=== PATIENT | female | born 1945 | race Caucasian/White ===

== ENCOUNTER 2017-09-22 16:52 | Emergency (ER) | payer MEDICARE, MEDICAID, SELFPAY ==
[2017-09-22 16:59] VITALS: BP 162/75; PULSE 79; RESP 18; TEMP 36.8; O2SAT 95; BMI 18.1
--- NOTE | 2017-09-22 17:21 | HMH.EDGENADL ---
ED Disposition Clinical Impression: URTI (acute upper respiratory infection) Disposition: Home, Self-Care Condition on Discharge: Fair Additional Instructions: 1- basic hygiene. 2- drink plenty of fluids. 3- follow up with pcp in am 4- return if needed Prescriptions: Azithromycin [Zithromax 250mg tab] 250 mg PO DIRECTED #6 tab - Critical Care Critical Care Time: No Attestation: On , the high probability of a clinically significant, sudden or life threatening deterioration of the following system(s) required my full and direct attention, intervention and personal management. The time I documented below is in addition to time spent performing reported procedures but includes the following listed in this critical care notation. Medical Decision Making - Kevon Inquiry Pt receiving controlled substance: No Kevon was queried for this patient: No Vital Signs: 09/22/17 16:59 Temperature 98.3 F Temperature Source Oral Pulse Rate [Right Brachial] 79 Respiratory Rate 18 Blood Pressure [Right Arm] 162/75 Blood Pressure Mean [Right Arm] 104 Blood Pressure Source [Right Arm] Automatic Cuff Blood Pressure Position [Right Arm] Sitting 02 Sat by Pulse Oximetry 95 Oxygen Delivery Method Room Air - Lab Data Lab Results 09/22/17 07:14: Group A Strep Rapid Negative 09/22/17 17:00: Influenza Type A Ag Negative, Influenza Type B Ag Negative Orders (Tests/Meds): ORDERS Category Date Time Status Strep Screen Confirmation Stat Micro 09/22/17 07:14 Received Medical Decision Narrative: The patient requested a steroid injection I declined and explained her the reason behind. I told her I will give her an antibiotic prescription need to follow-up with a primary care physician. Seem to understand my rationale. General Adult HPI - General Chief complaint: PAIN Stated complaint: body aches, cough Time Seen by Provider: 09/22/17 17:00 Mode of Arrival: Ambulatory Limitations: No Limitations Description of Symptoms (Recalled from ER Triage Doc. by RN): pt presents with body aches - History of Present Illness HPI narrative: 72 years old white female with history of hypothyroidism. She presents to the ED with her and son because of similar symptoms of fever body and aches. She denies cough chest pain nausea vomiting. Onset (ago): day(s) (yesterday) Radiation: non-radiation Severity: mild Relieving factors: none Exacerbating factors: none Associated symptoms: denies other symptoms Treatments prior to arrival: none - Related Data Previous Rx's Medication Instructions Recorded Azithromycin [Zithromax 250mg 250 mg PO DIRECTED #6 tab 09/22/17 tab] Allergies Allergy/AdvReac Type Severity Reaction Status Date / Time No Known Allergies Allergy Unverified 06/18/17 15:31 [facility] History I have reviewed the patient's past medical history: Yes - Social History Educational Level: Completed High School Smoking Status: Unknown if ever smoked Alcohol Intake: never - Psychiatric History Expresses thoughts of harming self/others: None Suicide Plan Description: No Plan ROS Obtained: Yes All systems reviewed & no additional complaints Physical Exam - General General appearance: alert, in no apparent distress - Head Head exam: atraumatic, normocephalic, normal inspection - Eye Eye exam: Present: normal appearance, PERRL, EOMI - ENT ENT exam: Present: normal exam, normal oropharynx, mucous membranes moist, TM's normal bilaterally, normal external ear exam - Neck Neck exam: Present: normal inspection, full ROM, trachea midline. Absent: meningismus, lymphadenopathy - Chest Chest inspection: Present: normal inspection, symmetric chest wall rise. Absent: tenderness - Respiratory Respiratory exam: Present: normal lung sounds bilaterally. Absent: respiratory distress - Cardiovascular Cardiovascular exam: Present: regular rate, normal rhythm. A
[2017-09-22 17:44] LABS: Strep Scrn Group A (Rapid) Negative (Negative)
[2017-09-22 18:20] VITALS: BP 129/72; PULSE 69; RESP 18; TEMP 37.1; O2SAT 99
== END 2017-09-22 18:21 | disposition home or self-care (01) ==
PROVIDERS: Emergency Provider Emergency Medicine; Family Provider Family Medicine; PCP Nurse Practitioner
DX: J06.9 Acute upper respiratory infection, unspecified (principal)
CPT/HCPCS: 87275; 87276; 87430; 99282

== ENCOUNTER → 2019-06-19 15:45 | Outpatient (CLI) | payer MEDICARE, MEDICAID, SELFPAY ==
--- NOTE | 2019-06-19 15:56 | XR_ITS ---
PROCEDURE: XR ABDOMEN MIN 2V CLINICAL INDICATION: CONSTIPATION COMPARISON: LS5 LUMBAR SPINE 5 VIEWS from 05/18/2017 FINDINGS: There is a moderate amount of retained colonic feces throughout the colon. Mild lumbar scoliosis convex left. There are multiple pelvic phleboliths. Small sclerotic focus overlies the ilium on the right and there sclerosis in the left supra-acetabular region IMPRESSION: Constipation Dictated by: Ismael Sutton MD 06/19/2019 17:38 Electronically signed by Ismael Sutton MD in [place] 06/19/2019 17:38
== END ==
PROVIDERS: PCP Nurse Practitioner Family; Visit Provider Nurse Practitioner Family
DX: K59.00 Constipation, unspecified (principal)
CPT/HCPCS: 74019

== ENCOUNTER → 2020-04-16 11:02 | Outpatient (CLI) | payer MEDICARE, MEDICAID, SELFPAY ==
[2020-04-16 12:43] LABS: Coronavirus 19 IgG Antibody Negative (Negative); Coronavirus 19 IgM Antibody Negative (Negative)
== END ==
PROVIDERS: Visit Provider Internal Medicine Gastroenterology
DX: Z01.818 Encounter for other preprocedural examination (principal); Z13.810 Encounter for screening for upper gastrointestinal disorder
CPT/HCPCS: 36415; 86328

== ENCOUNTER 2020-04-18 10:22 | Day surgery (SDC) | payer MEDICARE, MEDICAID, SELFPAY ==
[2020-04-13 13:34] VITALS: BMI 25.4
[2020-04-18] VITALS (7 sets, daily range): BP systolic 83–139; BP diastolic 51–75; PULSE 73–87; RESP 16; TEMP 36.2–36.4; O2SAT 94–100
--- NOTE | 2020-04-18 11:46 | P.PN_ITS ---
[facility] Anesthesia Checklist - Patient Identification Patient Identification: Arm Band, Verbal (Name & ) - Structural Data Admitted From: Home Planned Operative Procedure/s: EGD Consent for Planned Operative Procedure(s) Verified: Yes Verified Documents: Surgical Consent, History and Physical - NPO Status Verified Time NPO: 00:00 - Chart Verification Results Verified: None - Additional verifications Anesthesia Reactions: No - Airway Assessment C-Spine Mobility Assessed: Yes TMJ Mobility Assessed: Yes Dentition: Edentulous - Neurological Assessment Level of Consciousness: Awake, Alert, Appropriate, Follows Commands Hx Seizures: No Numbness or tingling in extremities: No - Anesthesia Plan Anesthesia Risk discussed: Yes Anesthesia Plan: Verified ASA Class: III Anesthesia Type: MAC [facility] History I have reviewed the patient's past medical history: Yes Medical History: Reports:: Anxiety, Depression, Gastroesophageal Reflux Disea se(GERD), Heart Murmur, Hypertension Denies:: Cancer, Diabetes Mellitus Type 1, Internal Pacemaker, MRSA, Seizures *Have you ever received a pneumonia vaccine?: Yes *Have you received a flu vaccine this season?: Yes Other Medical History: Reports: Hypothyroidism Comment:: urine incontinence Anesthesia experience/problems:: no prior complications Other Surgeries: Yes: Appendectomy, Colon Resection, Tubal Ligation. No: Pacemaker Amputation: No Fractures: No - *Social History Last grade of school completed: GED Smoking Status: Never smoker Alcohol Intake: never Substance Use Type: denies use *Occupational Status:: retired Housing: house Household Members: spouse *Travel in the last 8 weeks: None Family Hx:: Cancer, Coronary Artery Disease, Heart Attack
--- NOTE | 2020-04-18 12:00 | HMH.PROC ---
[facility] Procedure Note Procedure Note:: Upper Endoscopy Procedure Report: Esophagogastroduodenoscopy with cold biopsies and TTS balloon dilation Endoscopost: Domingo Spencer II, MD Referring Physician: BRUNO Mai Date of Procedure: April 18, 2020 Equipment: Olympus GIF 180 standard upper endoscope Sedation: MAC sedation Indications: Mrs. Nolasco is a 74-year-old female with intractable nausea. She has had belching, bloating and early satiety. She also reports some dysphagia with globus sensation. She reports no regurgitation or vomiting. She reports no heartburn. She does have chronic constipation. She reports no weight loss. Her last upper endoscopy was several years ago. Procedure: Prior to the procedure, a history and physical exam was performed, and patient's medications and allergies were reviewed. The risks, benefits and alternatives of the sedation and procedure were discussed with the patient. All questions were answered and informed consent was obtained. The patient was brought to the procedure room. Patient identification and proposed procedure were verified by the physician and the nurse. The patient was placed in a left lateral decubitus position and the scope was passed under direct vision. Throughout the procedure, the patient's blood pressure, pulse, and oxygen saturations were monitored continuously. The upper GI endoscopy was accomplished without difficulty. The patient tolerated the procedure well. Findings: The scope was passed directly into the upper esophagus and advanced to the third portion of the duodenum. The post bulbar duodenum and duodenal bulb were normal with normal mucosa and conniventes. The scope was withdrawn through a normal duodenal bulb and pylorus into the stomach. There was evidence of linear reactive gastropathy of the antrum and body of the stomach. The remainder of the antrum, body and fundus of the stomach were grossly normal. Upon retroflexion there was a small sliding 1-2 cm hiatal hernia. 2 biopsies were taken in the antrum and along the lesser curvature for histology to rule out gastritis and/or H pylori. The scope was then withdrawn into the esophagus. There was a serrated Z-line and biopsies were obtained from the distal esophagus/GE junction. There was no evidence of reflux esophagitis or Hatch's. There was no Schatzki's ring or strictures. There were strong tertiary contractions and evidence of moderate esophageal dysmotility. The entire esophagus was dilated to 60 Citizen [place]/20 mm with a TTS hydrostatic balloon. There was some resistance at the cricopharyngeus. The remainder of the esophageal mucosa was normal. Impression: 1. Cricopharyngeal spasm status post dilation to 20 mm 2. Nonerosive GERD with moderate esophageal dysmotility and very small 1 to 2 cm hiatal hernia 3. Moderate linear reactive gastropathy Plan: I will follow-up the biopsies. I do feel that the patient has functional dyspepsia with dysmotility. I am going to recommend a fiber bowel regimen and promotility therapy (metoclopramide). I will discuss additional treatment options.
== END 2020-04-18 13:20 | disposition home or self-care (01) ==
PROVIDERS: PCP Family Medicine; Visit Provider Internal Medicine Gastroenterology
PROC: 0DJ08ZZ Inspection of Upper Intestinal Tract, Via Natural or Artificial Opening Endoscopic (ICD-10-PCS; CPT 43235; principal; 2020-04-18 11:30)
DX: J39.2 Other diseases of pharynx (principal); K21.9 Gastro-esophageal reflux disease without esophagitis; K44.9 Diaphragmatic hernia without obstruction or gangrene; K22.4 Dyskinesia of esophagus; K31.9 Disease of stomach and duodenum, unspecified; I10 Essential (primary) hypertension; F41.9 Anxiety disorder, unspecified; F32.9 Major depressive disorder, single episode, unspecified; E03.9 Hypothyroidism, unspecified; Z90.49 Acquired absence of other specified parts of digestive tract
CPT/HCPCS: 43239; 43249; 88305; C1726

== ENCOUNTER → 2020-05-02 08:27 | Outpatient (CLI) | payer MEDICARE, MEDICAID, SELFPAY ==
--- NOTE | 2020-05-02 08:33 | CT_ITS ---
PROCEDURE: CT HEAD/BRAIN WO CON CLINICAL INDICATION: DIZZINESS,BLURRED VISION COMPARISON: CT HDWO CT HEAD W/O CONTRAST from 04/09/2017 TECHNIQUE: Axial images obtained. All CT scans at the facility use one or more dose reduction, viz: automated exposure control, ma/kV adjustment per patient size (including targeted exams where dose is matched to indication, i.e. head), or iterative reconstruction technique. FINDINGS: No midline shift, mass effect, intracranial hemorrhage, hydrocephalus, or extra-axial fluid collection is evident. The calvarium has an unremarkable appearance. No mastoid effusion. Minimal mucosal thickening involves the ethmoid sinuses. IMPRESSION: No acute intracranial finding Dictated by: Ismael Sutton MD 05/02/2020 08:48 Ismael Sutton MD in [place] 05/02/2020 08:48
== END ==
PROVIDERS: PCP Family Medicine; Visit Provider Nurse Practitioner Family
DX: R42 Dizziness and giddiness (principal); H53.8 Other visual disturbances
CPT/HCPCS: 70450

== ENCOUNTER → 2020-08-08 11:04 | Outpatient (CLI) | payer MEDICARE, MEDICAID, SELFPAY ==
[2020-08-08 12:08] LABS: Coronavirus 19 IgG Antibody Negative (Negative); Coronavirus 19 IgM Antibody Negative (Negative)
== END ==
PROVIDERS: Visit Provider Ophthalmology
DX: Z01.812 Encounter for preprocedural laboratory examination (principal); Z20.822 Contact with and (suspected) exposure to COVID-19; H25.12 Age-related nuclear cataract, left eye
CPT/HCPCS: 36415; 86328

== ENCOUNTER 2020-08-09 06:47 | Day surgery (SDC) | payer MEDICARE, MEDICAID, SELFPAY ==
[2020-08-04 13:36] VITALS: BMI 23.4
[2020-08-09 07:26] VITALS: BP 137/82; PULSE 87; RESP 16; TEMP 36.6; O2SAT 99
[2020-08-09 08:34] VITALS: BP 143/67; PULSE 71; RESP 18; O2SAT 100
[2020-08-09 08:39] VITALS: BP 140/69; PULSE 74; RESP 18; O2SAT 100
[2020-08-09 08:44] VITALS: BP 135/67; PULSE 71; RESP 16; O2SAT 100
[2020-08-09 08:49] VITALS: BP 129/61; PULSE 70; RESP 16; O2SAT 100
[2020-08-09 08:56] VITALS: BP 126/85; PULSE 67; RESP 16; TEMP 36.4; O2SAT 95
== END 2020-08-09 09:05 | disposition home or self-care (01) ==
PROVIDERS: PCP Family Medicine; Visit Provider Ophthalmology
DX: H26.9 Unspecified cataract (principal); F32.9 Major depressive disorder, single episode, unspecified; E03.9 Hypothyroidism, unspecified; Z79.899 Other long term (current) drug therapy
CPT/HCPCS: 66984; V2632

== ENCOUNTER → 2021-04-11 11:10 | Outpatient (CLI) | payer MEDICARE, MEDICAID, SELFPAY ==
--- NOTE | 2021-04-11 11:21 | XR_ITS ---
PROCEDURE: XR CERVICAL SPINE 5V CLINICAL INDICATION: NECK PAIN COMPARISON: No exams were available for comparison FINDINGS: There is normal alignment. No acute fracture or dislocation is evident. There is degenerative disc disease at C5-C6 and C6-C7. Mild foraminal narrowing is present on the right at C3-C4 C4-C5 and C5-C6 and on the left at C3-C4 with moderate foraminal narrowing on the left at C5-C6 from uncovertebral hypertrophy. Mild facet hypertrophic changes are present from C3-C6. This is slightly greater on the left. No lytic or blastic change. No cervical rib. IMPRESSION: Cervical spondylosis as described above. Dictated by: Ismael Sutton MD 04/11/2021 12:20 Ismael Sutton MD in [place] 04/11/2021 12:20
== END ==
PROVIDERS: PCP Family Medicine; Visit Provider Family Medicine
DX: M54.2 Cervicalgia (principal)
CPT/HCPCS: 72050

== ENCOUNTER 2021-06-03 23:22 | Observation (INO) | payer MEDICARE, MEDICAID, SELFPAY ==
--- NOTE | 2021-06-03 | ECG_ITS ---
APPROVED REPORT Exam: Resting ECG HR:123 bpm ECG Measurements Heart Rate 123 AXES ME 128 P 39 QRSd 80 QRS 50 QT 318 T 53 QTc 455 Conclusion Sinus tachycardia Late r wave progression Abnormal ECG Electronically signed by : Ariel Mendez MD 06/04/2021 09:04:13
[2021-06-03 23:23] VITALS: BP 113/75; PULSE 125; RESP 26; TEMP 39.5; O2SAT 99; BMI 27.3
--- NOTE | 2021-06-03 23:59 | PC.NURSE ---
pt states that she toog 1000 mg of tylenol at 9pm as well as promethazine
[2021-06-04] VITALS (12 sets, daily range): BP systolic 109–132; BP diastolic 45–75; PULSE 68–120; RESP 16–22; TEMP 37.1–38.8; O2SAT 95–100; BMI 27.7
--- NOTE | 2021-06-04 00:01 | XR_ITS ---
PROCEDURE INFORMATION: Exam: XR Chest Exam date and time: 06/04/2021 12:01 AM Age: 75 years old Clinical indication: Fever and other: Nausea, abdomen pain; Additional info: Abd pain, nausea, fever TECHNIQUE: Imaging protocol: XR of the chest. Views: 2 views. COMPARISON: CR CXR CHEST(2 VIEWS-NOT PORTABLE) 04/09/2017 3:15 PM FINDINGS: Lungs: Subtle interstitial haziness could reflect interstitial pneumonia. No consolidation. Pleural spaces: Unremarkable. No pleural effusion. No pneumothorax. Heart/Mediastinum: Unremarkable. No cardiomegaly. Bones/joints: Unremarkable. IMPRESSION: Subtle interstitial haziness could reflect interstitial pneumonia.
[2021-06-04 00:07] LABS: Coronavirus 19, PCR Not Detected (NotDetected); Influenza A, PCR Not Detected (NotDetected); Influenza B, PCR Not Detected (NotDetected); Microscopic, Urine URINE MICROSCOPIC (MICROSCOPIC)
[2021-06-04 00:14] LABS: Basophils # 0.1 K/mm3 (0-0.2); Basophils % 0.4 % (0.1-2.0); Eosinophils # 0.1 K/mm3 (0.0-0.4); Eosinophils % 0.4 % (0.1-12.0); Hematocrit 35.3 % (37.0-47.0); Hemoglobin 13.7 g/dL (12.2-16.2); Lymphocytes # 1.4 K/mm3 (0.7-4.5); Lymphocytes % 10.6 % (10-50); Mean Corpuscular HGB Conc 38.9 g/dL (31.8-35.4); Mean Corpuscular Hemoglobin 36.9 pg (27.0-31.2); Mean Corpuscular Volume 94.9 fl (81-99); Mean Platelet Volume 7.5 fl (7.4-10.4); Monocytes # 0.6 K/mm3 (0.1-1.0); Monocytes % 4.8 % (1.7-9.3); Neutrophils # 11.1 K/mm3 (1.8-7.8); Neutrophils % 83.9 % (37.0-80.0); Platelet Count 263 K/mm3 (142-424); Red Blood Count 3.72 M/mm3 (4.20-5.40); Red Cell Distribution Width 12.5 % (11.5-17.5); White Blood Count 13.3 K/mm3 (4.8-10.8)
[2021-06-04 00:17] LABS: Alanine Aminotransferase 33 U/L (12-78); Albumin Level 4.1 g/dl (3.5-5.0); Albumin/Globulin Ratio 1.4 (1.1-1.8); Alkaline Phosphatase 87 U/L (38-126); Amylase 47 U/L (30-110); Anion Gap 9.7 mEq/L (5-15); Aspartate Amino Transferase 36 U/L (14-36); Bilirubin,Total 0.3 mg/dl (0.2-1.3); Blood Urea Nitrogen 17 mg/dl (7-17); Carbon Dioxide 27 mmol/L (22.0-30.0); Chloride 105 mmol/L (98-107); Creatinine Clearance Estimated 49 mL/min (50-200); Estimated Glomerular Filt Rate 70 ml/min (>60); GFR (African American) 85 ML/MIN (>60); Glucose 116 mg/dl (74-100); Lactic Acid 1.1 mmol/L (0.7-2.1); Lipase 33 U/L (23-300); Potassium 3.7 mmoL/L (3.5-5.1); Sodium 138 mmol/L (136-145); Total Protein,Serum 7.1 g/dl (6.3-8.2)
--- NOTE | 2021-06-04 00:19 | HMH.EDNVD ---
ED Disposition Clinical Impression: Febrile illness, acute, SIRS (systemic inflammatory response syndrome) CAP (community acquired pneumonia) Qualifiers: Laterality: unspecified laterality Qualified Code(s): J18.9 - Pneumonia, unspecified organism Disposition: Admitted as Observation Condition on Discharge: Good - Critical Care Critical Care Time: No Attestation: On 06/03/21, the high probability of a clinically significant, sudden or life threatening deterioration of the following system(s) required my full and direct attention, intervention and personal management. The time I documented below is in addition to time spent performing reported procedures but includes the following listed in this critical care notation. Medical Decision Making - Medical Records Medical records reviewed: Yes: I reviewed the patient's medical records. - Kevon Inquiry Pt receiving controlled substance: No Vital Signs: 06/03/21 23:23 06/04/21 00:00 06/04/21 00:30 Temperature 103.1 F H Temperature Source Oral Pulse Rate 120 H 116 H Pulse Rate [Left] 125 H Respiratory Rate 26 H 22 20 Blood Pressure 128/72 132/65 Blood Pressure [Right Arm] 113/75 Blood Pressure Mean [Right Arm] 87 02 Sat by Pulse Oximetry 99 100 98 Oxygen Delivery Method Room Air Room Air Room Air 06/04/21 01:13 Temperature 101.8 F H Temperature Source Oral Pulse Rate Pulse Rate [Left] Respiratory Rate Blood Pressure Blood Pressure [Right Arm] Blood Pressure Mean [Right Arm] 02 Sat by Pulse Oximetry Oxygen Delivery Method - Lab Data Lab results reviewed: Yes: I reviewed the patient's lab results. Lab Results 06/04/21 00:01: Urine Color Yellow, Urine Appearance Clear, Urine pH 6.0, Ur Specific Amelia 1.010, Urine Protein Negative, Urine Glucose (UA) Negative, Urine Ketones Negative, Urine Blood Trace-l, Urine Nitrate Negative, Urine Bilirubin Negative, Urine Urobilinogen 0.2, Ur Leukocyte Esterase Negative, Urine RBC Occasional, Urine WBC Occasional, Amorphous Sediment Trace 06/04/21 00:01: WBC 13.3 H, RBC 3.72 L, Hgb 13.7, Hct 35.3 L, MCV 94.9, MCH 36.9 H, MCHC 38.9 H, RDW 12.5, Plt Count 263, MPV 7.5, Neut % (Auto) 83.9 H, Lymph % (Auto) 10.6, [place] % (Auto) 4.8, Eos % (Auto) 0.4, Baso % (Auto) 0.4, Neut # (Auto) 11.1 H, Lymph # (Auto) 1.4, [place] # (Auto) 0.6, Eos # (Auto) 0.1, Baso # (Auto) 0.1, ESR 32 H 06/04/21 00:01: Sodium 138, Potassium 3.7, Chloride 105, Carbon Dioxide 27, Anion Gap 9.7, BUN 17, Creatinine 0.80, Estimated Creat Clear 49, Estimated GFR 70, Est GFR ( Amer) 85, Glucose 116 H, Calcium 10.0, Total Bilirubin 0.3, AST 36, ALT 33, Alkaline Phosphatase 87, Troponin I < 0.01, Total Protein 7.1, Albumin 4.1, Globulin 3.0, Albumin/Globulin Ratio 1.4, Amylase 47, Lipase 33 06/04/21 00:01: Lactate 1.1 06/04/21 00:01: SARS-CoV-2 (PCR) Not detected, Influenza A Untype (PCR) Not detected, Influenza Type B (PCR) Not detected Result diagrams: 06/04/21 00:01 06/04/21 00:01 Orders (Tests/Meds): ED MEDICATIONS Generic Name Dose Route Start Last Admin Trade Name Freq PRN Reason Stop Dose Admin Sodium Chloride 1,000 mls @ 999 mls/hr 06/04/21 00:15 06/04/21 00:08 Sod Chlor 0.9% 1000ml Bag IV 06/04/21 01:15 999 mls/hr .Q1H1M ANNIE Administration Azithromycin 500 mg/ Sodium 250 mls @ 250 mls/hr 06/04/21 02:15 Chloride IV 06/18/21 02:14 Q24H ANNIE Ceftriaxone Sodium 1 gm/ 50 mls @ 100 mls/hr 06/04/21 02:15 Sodium Chloride IV 06/18/21 02:14 Q24H ANNIE Discontinued Medications Generic Name Dose Route Start Last Admin Trade Name Freq PRN Reason Stop Dose Admin Acetaminophen 650 mg 06/04/21 01:15 06/04/21 01:18 Acetaminophen 325mg Tab PO 06/04/21 01:16 650 mg ONCE ONE Administration Ibuprofen 400 mg 06/04/21 00:08 Ibuprofen 400 Mg Tablet PO 06/04/21 00:09 ONCE ONE Ondansetron HCl 4 mg 06/04/21 00:04 06/04/21 00:08 Ondansetron 4mg/2ml Vial IV 06/04/21 00:05 4
[2021-06-04 00:29] LABS: Appearance,Urine CLEAR (Clear); Bilirubin,Urine Negative (Negative); Blood, Urine TRACE-L (Negative); Color,Urine YELLOW (Yellow); Glucose,Urine (UA) Negative (Negative); Ketones,Urine Negative (Negative); Leukocyte Esterase,Urine Negative (Negative); Nitrate,Urine Negative (Negative); Protein,Urine Negative (Negative); Urobilinogen,Urine 0.2 EU/dl (0.2)
[2021-06-04 00:32] LABS: Troponin I < 0.01 ng/ml (0.00-0.034)
[2021-06-04 00:36] LABS: Erythrocyte Sedimentation Rate 32 mm/hr (0-30)
[2021-06-04 00:40] LABS: Amorphous Sediment,Urine Trace /lpf; RBC,Urine Occasional #/hpf (0-3); WBC,Urine Occasional #/hpf (0-3)
[2021-06-04 02:13] LABS: Adenovirus,PCR Not Detected (NotDetected); Bordetella Pertussis Not Detected (NotDetected); Chlamydophila Pneumoniae, PCR Not Detected (NotDetected); Coronavirus 19, PCR Not Detected (NotDetected); Coronavirus 229E Not Detected (NotDetected); Coronavirus NL63 Not Detected (NotDetected); Coronavirus OC43 Not Detected (NotDetected); Coronovirus HKU1,PCR Not Detected (NotDetected); Human Metapneumovirus Not Detected (NotDetected); Influenza A, PCR Not Detected (NotDetected); Influenza AH1, 2009 Not Detected (NotDetected); Influenza AH1, PCR Not Detected (NotDetected); Influenza AH3,PCR Not Detected (NotDetected); Influenza B, PCR Not Detected (NotDetected); Mycoplasma Pneumoniae, PCR Not Detected (NotDetected); Parainfluenza 1, PCR Not Detected (NotDetected); Parainfluenza 2, PCR Not Detected (NotDetected); Parainfluenza 3, PCR Not Detected (NotDetected); Parainfluenza 4, PCR Not Detected (NotDetected); Respiratory Syncytial Virus Not Detected (NotDetected); Rhinovirus/Enterovirus Not Detected (NotDetected)
[2021-06-04 02:39] LABS: T4 (Thyroxine) 10.6 ug/dl (5.53-11.0)
[2021-06-04 02:52] LABS: Thyroid Stimulating Hormone 1.25 uIU/mL (0.465-4.68)
--- NOTE | 2021-06-04 02:57 | PC.NURSE ---
report called to Lisa PUGH
--- NOTE | 2021-06-04 03:08 | PC.NURSE ---
PT ARRIVED TO FLOOR VIA W/C FROM ED W/STAFF @ [id number]
--- NOTE | 2021-06-04 03:46 | PC.NURSE ---
A&OX4. TOLERATING RA WELL. PT DOES NOT HAVE COUGH OR SPUTUM PRODUCTION. PT STATES THAT SHE FEELS YUCKY . PT UP INDEPENDENTLY IN ROOM. HAS RESTED WELL SINCE ARRIVAL TO FLOOR. ON ARRIVAL, ORAL TEMP 101. ACTIVE COOLING MEASURES IN PLACE, TYLENOL ADMINISTERED. WILL RE-CHECK TEMP. NO OTHER C/O THUS FAR, WILL CONTINUE TO MONITOR.
[2021-06-04 04:03] LABS: Troponin I < 0.01 ng/ml (0.00-0.034)
--- NOTE | 2021-06-04 05:14 | PC.NURSE ---
RECHECKED PT TEMP, NOW 99.7 ORALLY. WILL CONTINUE TO MONITOR.
[2021-06-04 07:55] LABS: Chloride 110 mmol/L (98-107); Potassium 3.7 mmoL/L (3.5-5.1); Sodium 141 mmol/L (136-145)
[2021-06-04 07:57] LABS: Blood Urea Nitrogen 13 mg/dl (7-17); Creatinine Clearance Estimated 50 mL/min (50-200); Estimated Glomerular Filt Rate 82 ml/min (>60); GFR (African American) 99 ML/MIN (>60)
[2021-06-04 07:58] LABS: Anion Gap 8.7 mEq/L (5-15); Calcium 8.9 mg/dl (8.4-10.2); Carbon Dioxide 26 mmol/L (22.0-30.0); Glucose 87 mg/dl (74-100); Magnesium 1.6 mg/dl (1.6-2.3)
--- NOTE | 2021-06-04 07:58 | HMH.HP ---
*Admission Date: 06/04/21 *Chief complaint: Weakness and nausea *History of present illness: 75-year-old female presented to the emergency department yesterday evening after awakening that morning with malaise and nausea. Patient had chills and low-grade fever at home as well. She denies cough, shortness of breath, dysuria, urinary frequency, urinary urgency, swollen joints, joint pain, rashes, open wounds, vomiting, diarrhea. As her day progressed and she felt more ill she presented to the emergency department. In the ER patient was febrile. Work-up revealed a leukocytosis and chest x-ray hinting at possible interstitial pneumonia. Patient was started on Rocephin and azithromycin to treat suspected community-acquired pneumonia and admitted for further monitoring. Patient has no history of lung disease. She is unaware of any sick contacts although has been visiting her frequently in a alf facility where he is rehabilitating. This morning she reports slight improvement. Temperature seems to be returning to normal [facility] History I have reviewed the patient's past medical history: Yes Medical History: Reports:: Anxiety, Depression, Gastroesophageal Reflux Disease(GERD), Heart Murmur, Hypertension Denies:: Cancer, Diabetes Mellitus Type 1, Diabetes Mellitus Type 2, Internal Pacemaker, MRSA, Seizures *Have you ever received a pneumonia vaccine?: Yes *Have you received a flu vaccine this season?: Yes Other Medical History: Reports: Hypothyroidism Other Surgeries: Yes: Appendectomy, Colon Resection, Tubal Ligation. No: Pacemaker Amputation: No Fractures: No - *Social History Smoking Status: Never smoker Alcohol Intake: never Substance Use Type: denies use *Occupational Status:: retired Housing: house Household Members: spouse *Travel in the last 8 weeks: None - Psychiatric History Pschychiatric History:: Reports:: Anxiety, Depression Family Hx:: No significant family history Review of Systems - Constitutional Reports body ache(s), Reports chills, Reports fever(s), Reports headache(s), Reports lack of energy, Reports malaise, Reports weakness - Eyes Denies blurry vision, Denies change in vision - ENT Denies change in voice, Denies difficulty swallowing, Denies ear pain - *Cardiovascular Denies chest pain, Denies chest pain at rest, Denies chest pain with activity, Denies leg pain with activity, Denies excessive sweating, Denies shortness of breath, Denies shortness of breath with activity, Denies irregular heart rhythm, Denies leg sores - *Respiratory Denies chest congestion, Denies cough, Denies shortness of breath, Denies shortness of breath with activity - *Gastrointestinal Denies abdominal pain, Denies belching, Denies bloating, Denies change in bowel habits, Denies loose stools, Denies difficulty swallowing, Denies vomiting - *Genitourinary Denies difficulty urinating, Denies painful urination, Denies side pain, Denies genital itching - *Musculoskeletal Denies joint pain - Integumentary/Breasts Denies bleeding lesions, Denies rash - *Neurologic Reports weakness, Denies abnormal walking, Denies abnormal hearing, Denies burning sensations, Denies confusion, Denies seizure-like activity, Denies unsteadiness, Denies localized weakness, Denies seizure-like activity - Psychiatric Denies change in appetite - Endocrine Denies cold intolerance, Denies excessive sweating, Denies flushing, Denies rapid, pounding, or irregular heartbeat - Hematologic/Lymphatic Denies easy bruising Meds Home Medications Medication Instructions Recorded Confirmed Type Cholecalciferol (Vitamin D3) 50,000 unit PO WEEKLY 04/13/20 06/04/21 History [Vitamin D3] Levothyroxine Sodium 100 mcg PO DAILY 04/13/20 06/04/21 History [Levothyroxine 100mcg (0.1MG) Tab] Oxybutynin Chloride [Ditropan Xl] 5 mg PO BID 04/13/20 06/04/21 History Promethazine HCl [Phenergan 25mg 25 mg PO NEEDED PRN 04/13/20 06/04/21 History tab
[2021-06-04 08:03] LABS: Basophils % 0.4 % (0.1-2.0); Eosinophils # 0.1 K/mm3 (0.0-0.4); Eosinophils % 1.4 % (0.1-12.0); Hematocrit 41.4 % (37.0-47.0); Hemoglobin 13.8 g/dL (12.2-16.2); Mean Corpuscular HGB Conc 33.4 g/dL (31.8-35.4); Mean Corpuscular Hemoglobin 32.4 pg (27.0-31.2); Mean Corpuscular Volume 97.1 fl (81-99); Mean Platelet Volume 9.5 fl (7.4-10.4); Monocytes # 0.5 K/mm3 (0.1-1.0); Monocytes % 5.7 % (1.7-9.3); Neutrophils # 6.5 K/mm3 (1.8-7.8); Neutrophils % 70.5 % (37.0-80.0); Platelet Count 219 K/mm3 (142-424); Red Blood Count 4.27 M/mm3 (4.20-5.40); Red Cell Distribution Width 12.7 % (11.5-17.5); White Blood Count 9.2 K/mm3 (4.8-10.8)
[2021-06-04 08:38] LABS: Procalcitonin 0.501 ng/mL (0.0-2.0)
--- NOTE | 2021-06-04 12:42 | P.CONPHA_ITS ---
[facility] Pharmacy VTE Monitoring - Patient Demographics Admission date: 06/04/21 Report Date: 06/04/21 Time: 12:43 Allergies/Adverse Reactions: Patient Allergies No Known Allergies Allergy (Verified 04/13/20 13:21) Height: 1.52 m Weight: 64.093 kg Patient Problems: Current Active Problems Febrile illness, acute (Acute) SIRS (systemic inflammatory response syndrome) (Acute) - VTE Risk Labs: VTE Related Lab Results Hgb 13.8 g/dL (12.2-16.2) 06/04/21 07:30 Hct 41.4 % (37.0-47.0) 06/04/21 07:30 Plt Count 219 K/mm3 (142-424) 06/04/21 07:30 BUN 13 mg/dl (7-17) 06/04/21 07:30 Creatinine 0.70 mg/dl (0.52-1.04) 06/04/21 07:30 Estimated Creat Clear 50 mL/min (50-200) 06/04/21 07:30 Was VTE Risk Assessment Performed: No Clinical Trial Participant: No - Prophylaxis VTE Prophylaxis Ordered?: Yes Types of VTE Prophylaxis: TEDS Knee High Location of Applied Device: Refused
--- NOTE | 2021-06-04 12:43 | HMH.PHAINT ---
MEDICATION RECONCILIATION COMPLETE USING EXTERNAL PHARMACY FILL HISTORY, ZORAN REPORT, AND CALL TO [facility].
[2021-06-05 04:00] VITALS: BP 120/45; PULSE 69; RESP 18; TEMP 36.8; O2SAT 95
[2021-06-05 04:53] VITALS: BMI 28.8
--- NOTE | 2021-06-05 07:12 | P.PN_ITS ---
Internal Medicine - PN: Subj *Date: 06/05/21 *Time: 07:12 Interval history: Patient has no complaints. No acute events over the last 24 hours. She has remained afebrile. She denies any development of cough. Nausea has improved. Exam Vital signs and Labs for Last 24 Hours: Temp Pulse Resp BP Pulse Ox 98.2 F 69 18 120/45 L 95 06/05/21 04:00 06/05/21 04:00 06/05/21 04:00 06/05/21 04:00 06/05/21 04:00 Laboratory Results - last 24 hr 06/04/21 07:30: Sodium 141, Potassium 3.7, Chloride 110 H, Carbon Dioxide 26, Anion Gap 8.7, BUN 13, Creatinine 0.70, Estimated Creat Clear 50, Estimated GFR 82, Est GFR ( Amer) 99, Glucose 87 D, Calcium 8.9, Magnesium 1.6 06/04/21 07:30: WBC 9.2 D, RBC 4.27, Hgb 13.8, Hct 41.4, MCV 97.1, MCH 32.4 H, MCHC 33.4, RDW 12.7, Plt Count 219, MPV 9.5, Neut % (Auto) 70.5, Lymph % (Auto) 22.0, [place] % (Auto) 5.7, Eos % (Auto) 1.4, Baso % (Auto) 0.4, Neut # (Auto) 6.5, Lymph # (Auto) 2.0, [place] # (Auto) 0.5, Eos # (Auto) 0.1, Baso # (Auto) 0.0 06/04/21 07:30: Procalcitonin 0.501 I & O for Last 24 hours: Intake & Output 06/02/21 06/03/21 06/04/21 06/05/21 11:59 11:59 11:59 11:59 Intake Total 240 / 240 600 / 600 Balance 240 / 240 600 / 600 Weight 141 lb 4.8 oz 146 lb 12.8 oz - Constitutional no acute distress - *Routine Respiratory Exam Present: CTA bilaterally - *Routine Cardiovascular Exam Present: RRR - *Routine Abdominal Exam Present: soft, normoactive bowel sounds. Absent: tenderness - *Routine Extremities Exam Absent: cyanosis, clubbing, edema Assessment and Plan (1) CAP (community acquired pneumonia) Status: Suspected Qualifiers: Laterality: unspecified laterality Qualified Code(s): J18.9 - Pneumonia, unspecified organism Category: Medical Code(s): J18.9 - Pneumonia, unspecified organism (2) Febrile illness, acute Status: Acute Category: Medical Code(s): R50.9 - Fever, unspecified - Assessment and plan all Dx Assessment and Plan for all problems:: Patient will continue azithromycin and Rocephin. Plan will be for additional dose of Rocephin this afternoon and then patient may be discharged home as she is oxygenating well and has been afebrile now for 24 hours. Patient will follow up tomorrow in the office due to high suspicion that patient blood cultures may turn positive
--- NOTE | 2021-06-05 07:14 | HMH.DCSUM ---
General - General Admission date:: 06/04/21 Discharge date: 06/05/21 HPI HPI: 75-year-old female presented to the emergency department yesterday evening after awakening that morning with malaise and nausea. Patient had chills and low-grade fever at home as well. She denies cough, shortness of breath, dysuria, urinary frequency, urinary urgency, swollen joints, joint pain, rashes, open wounds, vomiting, diarrhea. As her day progressed and she felt more ill she presented to the emergency department. In the ER patient was febrile. Work-up revealed a leukocytosis and chest x-ray hinting at possible interstitial pneumonia. Patient was started on Rocephin and azithromycin to treat suspected community-acquired pneumonia and admitted for further monitoring. Patient has no history of lung disease. She is unaware of any sick contacts although has been visiting her frequently in a care home facility where he is rehabilitating. This morning she reports slight improvement. Temperature seems to be returning to normal Hospital Course Hospital Course: Patient was admitted with febrile illness and suspicion of fevers due to chest x-ray suggestive of a small interstitial infiltrate. Patient was never hypoxic. T-max was 103 in the emergency department which trended down to the point the patient was afebrile on the morning of June 04. She remained afebrile for the remainder of her hospitalization. Patient was admitted under diagnosis of pneumonia. Blood cultures were collected. Sputum cultures were never obtained as patient did not have a cough. She was relatively asymptomatic in regards to respiratory illness with only specific complaint being nausea. Patient's white count was elevated on admission and had returned to normal by the morning of June 04. Patient was observed for additional 24 hours and remained well. Due to high suspicion of bacteremia patient was given additional IV Rocephin prior to discharge. Patient will follow up in my office tomorrow June 06 in the afternoon to review available tests and if necessary patient will will resume IV therapy as an outpatient. Objective Vital signs: Temp Pulse Resp BP Pulse Ox 98.2 F 69 18 120/45 L 95 06/05/21 04:00 06/05/21 04:00 06/05/21 04:00 06/05/21 04:00 06/05/21 04:00 no acute distress - *Routine Respiratory Exam Present: CTA bilaterally - *Routine Cardiovascular Exam Present: RRR - *Routine Extremities Exam Absent: cyanosis, clubbing, edema Results Labs on day of discharge: Labs from last 24 hours 06/04/21 06/04/21 06/04/21 07:30 07:30 07:30 WBC 9.2 D RBC 4.27 Hgb 13.8 Hct 41.4 MCV 97.1 MCH 32.4 H MCHC 33.4 RDW 12.7 Plt Count 219 MPV 9.5 Neut % (Auto) 70.5 Lymph % (Auto) 22.0 [place] % (Auto) 5.7 Eos % (Auto) 1.4 Baso % (Auto) 0.4 Neut # (Auto) 6.5 Lymph # (Auto) 2.0 [place] # (Auto) 0.5 Eos # (Auto) 0.1 Baso # (Auto) 0.0 Sodium 141 Potassium 3.7 Chloride 110 H Carbon Dioxide 26 Anion Gap 8.7 BUN 13 Creatinine 0.70 Estimated Creat Clear 50 Estimated GFR 82 Est GFR ( Amer) 99 Glucose 87 D Calcium 8.9 Magnesium 1.6 Procalcitonin 0.501 DS: Diagnosis - Discharge Diagnosis (1) CAP (community acquired pneumonia) Status: Suspected (2) Febrile illness, acute Status: Acute Discharge Plan - Patient Discharge Instructions ACTIVITY: Continue current activity DIET: continue same diet Patient Instructions: Pneumonia-Adult, DI for Pneumonia -- Adult, DI for Viral Upper Respiratory Infection -- Adult, DI for Fever (Symptom) -- Adult - Follow up Plan Follow up with: Ariel Bautista MD [Staff Physician] - 1 day Disposition: Home, Self-Care Condition at discharge:: Improved Home Medications: Home Medications Medication Instructions Recorded Confirmed Type Cholecalciferol (Vit
[2021-06-05 07:27] VITALS: BP 152/66; RESP 18; TEMP 36.8; O2SAT 94
[2021-06-05 08:00] VITALS: RESP 18; O2SAT 94
[2021-06-05 13:00] VITALS: BP 112/60; PULSE 76; RESP 14; TEMP 37; O2SAT 95
[2021-06-05 16:00] VITALS: BP 122/66; PULSE 71; RESP 18; TEMP 36.6; O2SAT 97
--- NOTE | 2021-06-05 16:36 | PC.NURSE ---
Pt has been pleasant and cooperative this shift. A&O X4. No complaints of pain or SOA. Pt is on room air with sats. >90%. Lungs CTA. No edema noted. Skin is C/D/I. Pt ambulates with stand-by assistance to/from the bathroom. Urine is clear and yellow. No BM thus far this shift. Appetite is good and pt eats the majority of all meals. Pt has been instructed to provide a sputum sample and a specimen cup has been placed at bedside. 20 G peripheral IV in the RT forearm is patent and infusing NS @ 75 ML/HR. VSS. Call light within reach. Will continue to monitor.
== END 2021-06-05 18:30 | disposition home or self-care (01) ==
LOC: ER 06-04 01:32 → 2ND 06-04 02:12
PROVIDERS: Admitting Provider Emergency Medicine; Emergency Provider Emergency Medicine; PCP Family Medicine; Visit Provider Family Medicine
DX: J18.9 Pneumonia, unspecified organism (principal); Z20.822 Contact with and (suspected) exposure to COVID-19; K21.9 Gastro-esophageal reflux disease without esophagitis; E03.9 Hypothyroidism, unspecified; Z79.899 Other long term (current) drug therapy
CPT/HCPCS: G0378; 36415; 71046; 80048; 80053; 81001; 82150; 83605; 83690; 83735; 84145; 84436; 84443; 84484; 85025; 85651; 87040; 87581; 87632; 87798; 93005; 96365; 96366; 96375; 99282; C9803; J0456; J2405; U0003; U0005

== ENCOUNTER → 2022-08-29 13:01 | Outpatient (CLI) | payer MEDICARE, MEDICAID, SELFPAY ==
--- NOTE | 2022-08-29 13:06 | US_ITS ---
FINAL REPORT CLINICAL HISTORY: CLAUDICATION,REST PAIN COMPARISON: None FINDINGS: ANKLE-BRACHIAL PRESSURE INDICES Pressure indices are as follows: RIGHT LOWER EXTREMITY: Ankle-brachial pressure index: 1.07 Comments: Normal LEFT LOWER EXTREMITY: Ankle-brachial pressure index: 1.19 Comments: Normal IMPRESSION: No evidence of significant obstructive peripheral vascular disease of the lower extremities Reviewed, Interpreted and Dictated by Jessica Gonsales MD Transcribed by Alexandria Garcia Authenticated and [facility]
== END ==
PROVIDERS: PCP Family Medicine; Visit Provider Nurse Practitioner Family
DX: R09.89 Other specified symptoms and signs involving the circulatory and respiratory systems (principal); M79.604 Pain in right leg; M79.605 Pain in left leg
CPT/HCPCS: 93923

== ENCOUNTER → 2022-11-13 17:21 | Outpatient (CLI) | payer MEDICARE, MEDICAID, SELFPAY ==
--- NOTE | 2022-11-13 17:38 | XR_ITS ---
PROCEDURE INFORMATION: Exam: XR Lumbosacral Spine Exam date and time: 11/13/2022 5:31 PM Age: 77 years old Clinical indication: Low back pain; Additional info: Lower back pain TECHNIQUE: Imaging protocol: Radiologic exam of the lumbosacral spine. Views: 4 or 5 views. COMPARISON: CR LS5 LUMBAR SPINE 5 VIEWS 18/05/2017 13:26 FINDINGS: Bones/joints: Normal. No acute fracture. Normal alignment. Soft tissues: Unremarkable. Vasculature: Vascular calcifications. IMPRESSION: No acute findings.
== END ==
PROVIDERS: PCP Family Medicine; Visit Provider Family Medicine
DX: M54.50 Low back pain, unspecified (principal)
CPT/HCPCS: 72110

== ENCOUNTER 2022-12-09 00:15 | Emergency (ER) | payer MEDICARE, MEDICAID, SELFPAY ==
[2022-12-09 00:15] VITALS: BP 157/80; PULSE 66; RESP 18; TEMP 36.8; O2SAT 96; BMI 29.2
[2022-12-09 00:31] VITALS: BP 138/74; PULSE 70; O2SAT 97
--- NOTE | 2022-12-09 00:37 | CT_ITS ---
PROCEDURE INFORMATION: Exam: CT Abdomen And Pelvis With Contrast Exam date and time: 12/09/2022 1:28 AM Age: 77 years old Clinical indication: Nausea TECHNIQUE: Imaging protocol: Computed tomography of the abdomen and pelvis with contrast. Total images: 316 Radiation optimization: All CT scans at this facility use at least one of these dose optimization techniques: automated exposure control; mA and/or kV adjustment per patient size (includes targeted exams where dose is matched to clinical indication); or iterative reconstruction. Contrast material: ISOVUE; Contrast volume: 75 ml; Contrast route: IV; REPORTING DATA: Count of CT and Cardiac NM exams in prior 12 months: This patient has received 0 known CTs and 0 known cardiac nuclear medicine studies in the 12 months prior to the current study. COMPARISON: ABDPELW/O CT ABD PELVIS W/O CONTRAST 03/14/2017 9:46 AM FINDINGS: Lungs: Fine linear left basilar fibrotic scarring. No airspace consolidation. Heart: Normal heart size. Diaphragm: Small hiatal hernia. Liver: Severe hepatic steatosis. Normal liver size and contour. No discrete mass. Gallbladder and bile ducts: Possible polyp or stone within the gallbladder neck, axial image 38. No acute cholecystitis. No bile duct dilatation. Pancreas: Atrophic pancreas. No pancreatitis or mass. Spleen: Nonenlarged spleen with adjacent splenule. Adrenal glands: Normal. No mass. Kidneys and ureters: Mildly atrophic bilateral kidneys. No renal mass, nephrolithiasis or hydronephrosis. Stomach and bowel: Hyperenhancement gastric mucosa concerning for gastritis. Mild wall thickening gastric antrum. Unremarkable duodenum. Small bowel appears within normal limits. No ileus or bowel obstruction. Postsurgical changes referral to a loop of bowel within the right lower quadrant. Moderate colonic stool burden. Redundant colon implying chronic constipation. There are few incidental scattered colonic diverticulum. Appendix: Nonvisualized presumed surgically absent appendix. Intraperitoneal space: Unremarkable. No free air. No significant fluid collection. Vasculature: Moderately atherosclerotic abdominal aorta without aneurysm. Numerous pelvic phleboliths. Lymph nodes: Unremarkable. No enlarged lymph nodes. Urinary bladder: Unremarkable as visualized. Reproductive: Atrophic uterus and ovaries. No adnexal mass. Bones/joints: Osteopenia. Mild degenerative changes bilateral hips and SI joints. Minor lumbar levocurvature. Mild degenerative changes thoracolumbar spine. Soft tissues: Postsurgical scarring midline lower abdominal wall. IMPRESSION: 1. Hyperenhancement of the gastric mucosa concerning for acute gastritis with antral wall thickening. 2. Severe hepatic steatosis. 3. Small hiatal hernia. 4. Sequela of chronic constipation. 5. Additional chronic and incidental findings.
--- NOTE | 2022-12-09 00:55 | HMH.EDGENADL ---
Discharge Plan Disposition Patient Disposition: Home, Self-Care Condition: Good Chief Complaint: Nausea/Vomiting/Diarrhea Prescriptions Prescriptions: No Action levothyroxine 100 MCG tablet 100 mcg PO DAILY cholecalciferol (vitamin D3) 10 MCG capsule 50,000 unit PO WEEKLY omeprazole 40 MG capsule,delayed release(DR/EC) 40 mg PO DAILY temazepam 30 MG capsule 30 mg PO HS metformin 500 mg tablet 500 mg PO DAILY paroxetine HCl 10 mg tablet 10 mg PO DAILY bupropion HCl 100 mg tablet 100 mg PO DAILY Rybelsus 3 mg tablet 3 mg PO AC Referrals Follow up/Referrals: Kit Virgen MD [Primary Care Provider] - See instructions Clinical Impressions Clinical Impression: Gastritis Instructions Patient Instructions: DI for Diarrhea and Traveler's Diarrhea -- Adult, DI for Diarrhea and Traveler's Diarrhea -- Child, DI for Nausea -- Adult, DI for Nausea -- Child Discharge ED Provider: Karlo Vaca General Adult HPI General Chief complaint: Nausea/Vomiting/Diarrhea Stated complaint: stomach virus Time Seen by Provider: 12/09/22 00:21 Mode of Arrival: EMS Source of Information: Patient and EMS Limitations: No Limitations Description of Symptoms (Recalled from ER Triage Doc. by RN): Pt states she is experiencing severe nausea for past 2 weeks. Denies any other symptoms. Rently dx with diabetes, placed on Rybelsus and Metformin. History of Present Illness HPI narrative: 77yo F presents to the ER secondary to nausea for 2 weeks. No vomiting or diarrhea. Reports decreased p.o. intake secondary to nausea. No fever. Denies previous abdominal surgery. Patient reports she was seen by her PCP recently and provided Benadryl. This did not improve her symptoms. Patient took Phenergan prior to arrival Related Data Home Medications Medication Instructions Recorded Confirmed cholecalciferol (vitamin D3) 10 50,000 unit PO WEEKLY Supplement 04/13/20 12/09/22 mcg (400 unit) capsule levothyroxine 100 mcg tablet 100 mcg PO DAILY thyroid 04/13/20 12/09/22 omeprazole 40 mg capsule,delayed 40 mg PO DAILY Reflux/Acid reflux 06/04/21 12/09/22 release temazepam 30 mg capsule 30 mg PO HS Anxiety 06/04/21 12/09/22 bupropion HCl 100 mg tablet 100 mg PO DAILY Depression 12/09/22 12/09/22 metformin 500 mg tablet 500 mg PO DAILY Diabetes 12/09/22 12/09/22 paroxetine HCl 10 mg tablet 10 mg PO DAILY Depression 12/09/22 12/09/22 semaglutide 3 mg tablet (Rybelsus) 3 mg PO AC Diabetes 12/09/22 12/09/22 Allergies Allergy/AdvReac Type Severity Reaction Status Date / Time No Known Allergies Allergy Verified 04/13/20 13:21 [facility] Disclaimer: The information contained in this section may have been updated after the patient was seen, as this information can be updated by other users. Social History Smoking Status: Never smoker second hand exposure: No alcohol intake: never substance use type: denies use current occupational status: retired Travel in the last 8 weeks: None household members: spouse housing: house current occupational exposures/hazards: No caffeine: Yes ROS Obtained: Yes Systems reviewed as appropriate & no additional complaints except as documented Physical Exam General General appearance: alert and in no apparent distress Head Head exam: atraumatic Eye Eye exam: Present PERRL ENT ENT exam: Present mucous membranes moist Neck Neck exam: Present trachea midline Chest Chest inspection: Present normal inspection Respiratory Respiratory exam: Present normal lung sounds bilaterally; Absent respiratory distress Cardiovascular Cardiovascular exam: Present regular rate, normal rhythm and normal heart sounds Abdominal Exam Abdominal exam: Present soft and normal bowel sounds; Absent distention, tenderness, guarding, rebound or rigidity Extremities Exam Extremities exam: Present normal inspection
[2022-12-09 01:00] VITALS: BP 144/77; PULSE 74; O2SAT 98
[2022-12-09 01:11] LABS: Basophils # 0.1 K/mm3 (0-0.2); Basophils % 1.1 % (0.1-2.0); Eosinophils # 0.2 K/mm3 (0.0-0.4); Eosinophils % 1.9 % (0.1-12.0); Hematocrit 47.3 % (37.0-47.0); Hemoglobin 15.2 g/dL (12.2-16.2); Lymphocytes # 3.7 K/mm3 (0.7-4.5); Mean Corpuscular HGB Conc 32.1 g/dL (31.8-35.4); Mean Corpuscular Hemoglobin 31.1 pg (27.0-31.2); Mean Corpuscular Volume 96.9 fl (81-99); Mean Platelet Volume 8.5 fl (7.4-10.4); Monocytes # 0.6 K/mm3 (0.1-1.0); Monocytes % 6.2 % (1.7-9.3); Neutrophils # 5.4 K/mm3 (1.8-7.8); Neutrophils % 53.9 % (37.0-80.0); Platelet Count 357 K/mm3 (142-424); Red Blood Count 4.88 M/mm3 (4.20-5.40)
[2022-12-09 01:17] LABS: Alanine Aminotransferase 81 U/L (12-78); Albumin Level 4.7 g/dl (3.5-5.0); Albumin/Globulin Ratio 1.3 (1.1-1.8); Alkaline Phosphatase 141 U/L (38-126); Anion Gap 19.1 mEq/L (5-15); Aspartate Amino Transferase 71 U/L (14-36); Bilirubin,Total 0.7 mg/dl (0.2-1.3); Blood Urea Nitrogen 18 mg/dl (7-17); Calcium 10.5 mg/dl (8.4-10.2); Carbon Dioxide 20 mmol/L (22.0-30.0); Chloride 102 mmol/L (98-107); Creatinine Clearance Estimated 51 mL/min (50-200); Estimated Glomerular Filt Rate 70 ml/min (>60); GFR (African American) 84 ML/MIN (>60); Globulin 3.5 g/dL (1.3-3.2); Glucose 173 mg/dl (74-100); Lipase 50 U/L (23-300); Potassium 4.1 mmoL/L (3.5-5.1); Sodium 137 mmol/L (136-145); Total Protein,Serum 8.2 g/dl (6.3-8.2)
--- NOTE | 2022-12-09 01:40 | PC.NURSE ---
Pt ambulatory to bathroom. Unable to provide urine sample at this time.
[2022-12-09 02:08] VITALS: BP 163/78; PULSE 77; RESP 16; TEMP 36.7; O2SAT 96
== END 2022-12-09 02:14 | disposition home or self-care (01) ==
PROVIDERS: Emergency Provider Family Medicine; PCP Family Medicine
DX: K29.70 Gastritis, unspecified, without bleeding (principal)
CPT/HCPCS: 74177; 80053; 83690; 85025; 86677; 96360; 99284; 99285; Q9967

== ENCOUNTER 2023-03-04 20:45 | Emergency (ER) | payer MEDICARE, MEDICAID, SELFPAY ==
[2023-03-04 20:46] VITALS: BP 136/89; PULSE 96; RESP 16; TEMP 36.9; O2SAT 98; BMI 27.3
[2023-03-04 22:00] VITALS: PULSE 108; RESP 20; O2SAT 95
--- NOTE | 2023-03-04 22:59 | HMH.EDGENADL ---
Discharge Plan Disposition Patient Disposition: Home, Self-Care Condition: Good Prescriptions Prescriptions: New methocarbamol 500 mg tablet 500 mg PO TID Qty: 90 0RF No Action levothyroxine 100 MCG tablet 100 mcg PO DAILY cholecalciferol (vitamin D3) 10 MCG capsule 50,000 unit PO WEEKLY omeprazole 40 MG capsule,delayed release(DR/EC) 40 mg PO DAILY temazepam 30 MG capsule 30 mg PO HS metformin 500 mg tablet 500 mg PO DAILY paroxetine HCl 10 mg tablet 10 mg PO DAILY bupropion HCl 100 mg tablet 100 mg PO DAILY Rybelsus 3 mg tablet 3 mg PO AC Referrals Follow up/Referrals: Kit Virgen MD [Primary Care Provider] - See instructions Activity Restrictions/Add. Instructions Additional Instructions/Restrictions: Please return to the emergency department if you experience any new or worsening symptoms. As discussed, it appears that your muscle pain is not related to any midline neck injury or any component of acute onset headache. After shared decision making we did not elect to get scans of your head or neck but if your symptoms worsen or change then may be a consideration. Clinical Impressions Clinical Impression: Cervical paraspinal muscle spasm Instructions Patient Instructions: DI for Neck Pain Discharge ED Provider: Jose Mendez General Adult HPI General Chief complaint: Neck Pain/Injury Stated complaint: neck pain Time Seen by Provider: 03/04/23 22:52 Mode of Arrival: Wheelchair Source of Information: Patient Limitations: No Limitations Description of Symptoms (Recalled from ER Triage Doc. by RN): pt states she reached over to grab glasses yesterday and now has neck pain. History of Present Illness HPI narrative: Patient presents for evaluation of paraspinal cervical nonradiating pain that is dull, subacute in onset after reaching over earlier today to pickup glasses. Patient describes a history of similar symptoms associated with muscle tenderness cervical spine, no associated headache, no visual complaints, no confusion, previous therapies include Tylenol. No pain elsewhere. No recent trauma. No blood thinner usage. No fevers or chills or nausea or vomiting or sick contacts. No recent travel. No midline pain. Related Data Home Medications Medication Instructions Recorded Confirmed cholecalciferol (vitamin D3) 10 50,000 unit PO WEEKLY Supplement 04/13/20 12/09/22 mcg (400 unit) capsule levothyroxine 100 mcg tablet 100 mcg PO DAILY thyroid 04/13/20 12/09/22 omeprazole 40 mg capsule,delayed 40 mg PO DAILY Reflux/Acid reflux 06/04/21 12/09/22 release temazepam 30 mg capsule 30 mg PO HS Anxiety 06/04/21 12/09/22 bupropion HCl 100 mg tablet 100 mg PO DAILY Depression 12/09/22 12/09/22 metformin 500 mg tablet 500 mg PO DAILY Diabetes 12/09/22 12/09/22 paroxetine HCl 10 mg tablet 10 mg PO DAILY Depression 12/09/22 12/09/22 semaglutide 3 mg tablet (Rybelsus) 3 mg PO AC Diabetes 12/09/22 12/09/22 Previous Rx's Medication Instructions Recorded methocarbamol 500 mg tablet 500 mg PO TID #90 tabs 03/05/23 Allergies Allergy/AdvReac Type Severity Reaction Status Date / Time No Known Allergies Allergy Verified 04/13/20 13:21 [facility] Disclaimer: The information contained in this section may have been updated after the patient was seen, as this information can be updated by other users. Social History Smoking Status: Never smoker second hand exposure: No alcohol intake: never substance use type: denies use current occupational status: retired Travel in the last 8 weeks: None household members: spouse housing: house current occupational exposures/hazards: No caffeine: Yes ROS Obtained: Yes Systems reviewed as appropriate & no additional complaints except as documented Physical Exam General General appearance: alert and in no apparent distress He
[2023-03-04 23:18] VITALS: BP 141/81; PULSE 81; RESP 18; O2SAT 97
[2023-03-04 23:30] VITALS: BP 153/92; PULSE 84; RESP 16; O2SAT 98
[2023-03-05] VITALS: BP 140/84; PULSE 88; RESP 20; O2SAT 96
[2023-03-05 00:51] VITALS: BP 137/87; PULSE 81; RESP 18; TEMP 36.9; O2SAT 98
== END 2023-03-05 00:52 | disposition home or self-care (01) ==
PROVIDERS: Emergency Provider Emergency Medicine; PCP Family Medicine
DX: M54.2 Cervicalgia (principal)
CPT/HCPCS: 99283

== ENCOUNTER 2024-07-02 17:16 | Emergency (ER) | payer MEDICARE, MEDICAID, SELFPAY ==
[2024-07-02 17:17] VITALS: BP 116/68; PULSE 69; RESP 18; TEMP 36.6; O2SAT 96; BMI 27.3
[2024-07-02] MEDS: DEXAMETHASONE 4MG TABLET 10 MG PO (19:23)
[2024-07-02] MEDS: KETOROLAC 30MG/ML VIAL 15 MG IM (19:23)
[2024-07-02] MEDS: METHOCARBAMOL 500MG TABLET 1500 MG PO (19:23)
--- NOTE | 2024-07-02 19:27 | PC.NURSE ---
pt medicated per AUG. Pt voices no needs at this time. family at bedside. Call light in reach
--- NOTE | 2024-07-02 20:15 | ED_ITS ---
Discharge Plan Disposition Patient Disposition: Home, Self-Care Prescriptions Prescriptions: New prednisone 20 mg tablet 40 mg PO DAILY 5 Days Qty: 10 0RF methocarbamol 750 mg tablet 1,500 mg PO TID 7 Days Qty: 42 0RF No Action sodium,potassium,mag sulfates [Suprep Bowel Prep Kit] 17.5-3.13-1.6 gram recon soln See Rx Instructions PO .COMPLEX Qty: 354 0RF Rx Instructions: DILUTE; drink full amount early evening before AND next morning at least 2 hr before procedure; follow w 960 mL water PO levothyroxine 100 MCG tablet 100 mcg PO DAILY cholecalciferol (vitamin D3) 10 MCG capsule 50,000 unit PO WEEKLY omeprazole 40 MG capsule,delayed release(DR/EC) 40 mg PO DAILY temazepam 30 MG capsule 30 mg PO HS metformin 500 mg tablet 500 mg PO DAILY paroxetine HCl 10 mg tablet 10 mg PO DAILY bupropion HCl 100 mg tablet 100 mg PO DAILY Rybelsus 3 mg tablet 3 mg PO AC methocarbamol 500 mg tablet 500 mg PO TID Qty: 90 0RF Referrals Follow up/Referrals: Kit Virgen MD [Primary Care Provider] - See instructions Bhavin Amos, PT [Physical Therapist] - See instructions Activity Restrictions/Add. Instructions Additional Instructions/Restrictions: Call your family doctor to establish care for this visit to the emergency department and schedule follow-up within 48 hours to ensure improvement. If you have any worsening of your condition or any other concerning signs or symptoms, return to the emergency department or your primary care doctor for further evaluation. See your family doctor for further refills of methocarbamol if needed. Call physical therapy to schedule follow-up and PT for your neck. Clinical Impressions Clinical Impression: Cervicalgia Print Language Print Language: Hebrew Discharge ED Provider: Tim Wooten General Adult HPI General Chief complaint: PAIN Stated complaint: Pain in neck,no accident Time Seen by Provider: 07/02/24 18:23 Mode of Arrival: Ambulatory Source of Information: Patient Limitations: No Limitations Description of Symptoms (Recalled from ER Triage Doc. by RN): chronic neck pain. wants a steroid shot. History of Present Illness HPI narrative: Please note that above description of symptoms, in this electronic medical record under categorization of recalled from ER triage doctor by RN are reflective of an initial nursing assessment, however, is not reflective of my full history and physical exam that was personally taken and clarified. Consequentially, this preceding description of symptoms, which may include the patient's categorized chief complaint in the EMR, do not reflect my personal clinical impression, and the ultimate description of history of present illness and patient stated complaints should be deferred to this section of the note. Unless stated otherwise or congruent with this section of the note, additional signs, symptoms, or incongruence should be interpreted as inaccurate with my clinical impression. Related Data Home Medications ?Medication ?Instructions ?Recorded ?Confirmed cholecalciferol (vitamin D3) 10 50,000 unit PO WEEKLY Supplement 04/13/20 12/09/22 mcg (400 unit) capsule levothyroxine 100 mcg tablet 100 mcg PO DAILY thyroid 04/13/20 12/09/22 omeprazole 40 mg capsule,delayed 40 mg PO DAILY Reflux/Acid reflux 06/04/21 12/09/22 release temazepam 30 mg capsule 30 mg PO HS Anxiety 06/04/21 12/09/22 bupropion HCl 100 mg tablet 100 mg PO DAILY Depression 12/09/22 12/09/22 metformin 500 mg tablet 500 mg PO DAILY Diabetes 12/09/22 12/09/22 paroxetine HCl 10 mg tablet 10 mg PO DAILY Depression 12/09/22 12/09/22 semaglutide 3 mg tablet (Rybelsus) 3 mg PO AC Diabetes 12/09/22 12/09/22 Previous Rx's ?Medication ?Instructions ?Recorded methocarbamol 500 mg tablet 500 mg PO TID #90 tabs 03/05/23 sodium,potassium,mag sulfates 17.5 See Rx Instructions PO .COMPLEX 04/13/24 gram-3.13 gram-1.6 gram oral soln #354 mL (Suprep Bowel Prep Kit) methocarbamol 750 mg tablet 1,500 mg (2 x 750 mg) PO TID 7 07/02/24 days #42 tabs prednisone 20 mg tablet 40 mg (2 x 20 mg) PO DAILY 5 days 07/02/24 #10 tabs Allergies Allergy/AdvReac Type Severity Reaction Status Date / Time No Known Allergies Allergy Verified 04/13/20 13:21 [facility] Disclaimer: The information contained in this section may have been updated after the patient was seen, as this information can be updated by other users. Social History (Reviewed 12/09/22 @ 00:55 by JOHN Reyes Smoking Status: Never smoker second hand exposure: No alcohol intake: never substance use type: denies use current occupational status: retired Travel in the last 8 weeks: None household members: spouse housing: house current occupational exposures/hazards: No caffeine: Yes Have you lived/traveled outside [place] in past 30 days?: No Contact w/someone who lives/traveled outside [place] past 30 days?: No Exposure to someone with infectious disease in past 14 days?: No Do you have a fever (greater than 100.4 F or 38 C)?: No Have you tested positive for COVID-19: No Exposed to someone with COVID-19 in past 14 days?: No Do you have a sore throat?: No Do you have a cough?: No Do you have any weakness?: No Do you have any diarrhea?: No Are you experiencing any unusual bleeding?: No Do you have any muscle aches/pain?: No Do you have any abdominal pain?: No Are you experiencing loss of taste or smell?: No Other Medical History Have you received the Flu Vaccine for this season: No Have you received the Pneumonia Vaccine: No ROS Obtained: Yes All systems reviewed & no additional complaints except as documented Physical Exam General General appearance: alert Head Head exam: atraumatic and normocephalic Eye Eye exam: Present normal appearance, PERRL and EOMI Neck Neck exam: Present normal inspection, full ROM, trachea midline and tenderness (Bilateral trapezius muscles. No midline tenderness) Respiratory Respiratory exam: Absent respiratory distress, wheezes, stridor, accessory muscle use or prolonged expiratory phase Cardiovascular Cardiovascular exam: Present other (Pulses equal symmetric in upper and lower extremities) Abdominal Exam Abdominal exam: Present soft; Absent distention, tenderness or pulsatile mass Extremities Exam Extremities exam: Absent edema Neurological Exam Neurological exam: Present alert, oriented X3, CN II-XII intact and normal gait; Absent motor sensory deficit Skin Skin exam: Present warm and dry; Absent diaphoresis or erythema Medical Decision Making Medical Records Medical records reviewed: Yes I reviewed the patient's medical records. Screening: Per USPSTF and CDC recommendations, given the prevalence of disease in our region, it is our hospital?s policy to screen for HIV and viral Hepatitis for all patients aged 18 and over and those with ongoing risk factors. Kevon Inquiry Pt receiving controlled substance: No Kevon was queried for this patient: No Vital Signs: 07/02/24 17:17 Temperature 97.9 F Temperature Source Oral Pulse Rate [Right] 69 Respiratory Rate 18 Blood Pressure [Right Arm] 116/68 Blood Pressure Mean [Right Arm] 84 02 Sat by Pulse Oximetry 96 Orders (Tests/Meds): ED MEDICATIONS Discontinued Medications Generic Name Dose Route Start Last Admin Trade Name [place] PRN Reason Stop Dose Admin Dexamethasone 10 mg 07/02/24 18:48 07/02/24 19:23 Dexamethasone 4mg Tablet PO 07/02/24 18:49 10 mg ONCE ONE Administration Ketorolac Tromethamine 15 mg 07/02/24 18:48 07/02/24 19:23 Ketorolac 30mg/Ml Vial IM 07/02/24 18:49 15 mg ONCE ONE Administration Methocarbamol 1,500 mg 07/02/24 18:48 07/02/24 19:23 Methocarbamol 500mg Tablet PO 07/02/24 18:49 1,500 mg ONCE ONE Administration Medical Decision Narrative: This is a 78-year-old female with chronic neck pain presenting with acute on chronic neck pain. Patient states that she was started on tizanidine and has taken 1 dose of that, however it makes her very tired so she is trying to avoid it. States that this neck pain has been getting worse over the last couple of days. Usually needs a steroid shot and that clears it up. This pain is no different. No bowel or bladder dysfunction, no weakness, no other concerns. No trauma. On arrival, patient looks very well. History obtained with patient and son. No midline neck tenderness she has full range of motion of her neck, and is neurologically intact and ambulatory. She does have muscle spasms in her bilateral trapezius muscles primarily on the left side. Very well-appearing clinically with no concerns for decompensation. Patient was given Toradol injection as well as oral steroid and Robaxin. On reevaluation about 45 minutes later, patient states that she is feeling much better she was actually sleeping and I had to wake her up. Because patient at baseline without signs or symptoms of clinical decompensation, deemed appropriate for discharge. Results were relayed to patient who voiced understanding and were agreeable to outpatient management and follow up. I discussed my clinical impression with patient and answered all questions. At this time, the evidence for any other entities in the differential is insufficient to warrant any further testing or ED observation. This was explained as well. Advisory was given that persistent or worsening symptoms require further evaluation. I confirmed the understanding of this discussion. Newspaper Subscription Solicitor disclaimer Much of this encounter note is an electronic commercial hvac service technician spoken language to pr inted text. Electronic commercial hvac service technician of the spoken language may permit errors. Although I have reviewed the note, some errors may still exist. Critical Care Critical Care Time Critical Care Time: No
[2024-07-02 20:20] VITALS: BP 160/65; PULSE 51; RESP 18; TEMP 36.6; O2SAT 97
== END 2024-07-02 20:24 | disposition home or self-care (01) ==
PROVIDERS: Emergency Provider Emergency Medicine; PCP Family Medicine
DX: M54.2 Cervicalgia (principal)
CPT/HCPCS: 96372; 99283; J1885; J8540

== ENCOUNTER 2024-07-30 10:23 | Outpatient (CLI) | payer MEDICARE, MEDICAID, SELFPAY ==
--- NOTE | 2024-07-30 10:31 | XR_ITS ---
FINAL REPORT TECHNIQUE: Chest PA & Lateral CLINICAL HISTORY: Shortness of breath COMPARISON: 06/04/2021 FINDINGS: 2 views of the chest were performed. The heart size is normal. The mediastinum is within normal limits. Scarring is noted at the left base. There is no acute cardiopulmonary process. There are no pleural effusions. There is no pneumothorax. The bony thorax appears intact. IMPRESSION: No acute cardiopulmonary process. Reviewed, Interpreted and Dictated by Mushtaq Greer MD Transcribed by Herlinda Beckford Authenticated and . [facility]
== END 2024-07-30 23:59 | disposition home or self-care (01) ==
LOC: RAD 10:26
PROVIDERS: PCP Family Medicine; Visit Provider Nurse Practitioner
DX: R06.02 Shortness of breath (principal)
CPT/HCPCS: 71046

== ENCOUNTER 2025-01-08 15:49 | Outpatient (CLI) | payer MEDICARE, MEDICAID, SELFPAY ==
--- NOTE | 2025-01-08 15:52 | MM_ITS ---
PROCEDURE INFORMATION: Exam: MG Bilateral Screening 3D Mammography Exam date and time: 01/08/2025 3:57 PM Age: 79 years old Clinical indication: Screening examination TECHNIQUE: Imaging protocol: Bilateral Screening tomosynthesis and 2D mammography including computer-aided detection (CAD) when performed. COMPARISON: 1. MG DMDXUWAL DIG MAMM-DX UNI LT W/AVS W/CAD 09/12/2016 3:10 PM 2. MG DMDXUL DIG MAMM-DX UNI-LT 03/14/2016 10:40 AM FINDINGS: MAMMOGRAPHY: Breast composition: There are scattered areas of fibroglandular density. Mass: None. Architectural distortion: None. Calcifications: No suspicious calcifications. Asymmetric density: None. Skin thickening: None. Axillary adenopathy: None. IMPRESSION: No mammographic evidence of malignancy. Annual screening is recommended unless otherwise clinically indicated. ASSESSMENT: BI-RADS Category 1: Negative.
== END 2025-01-08 23:59 | disposition home or self-care (01) ==
LOC: RAD 15:49
PROVIDERS: PCP Family Medicine; Visit Provider Nurse Practitioner
DX: Z12.31 Encounter for screening mammogram for malignant neoplasm of breast (principal); R92.323 Mammographic fibroglandular density, bilateral breasts
CPT/HCPCS: 77063; 77067

== ENCOUNTER 2025-06-01 19:55 | Observation (INO) | payer MEDICARE, MEDICAID, SELFPAY ==
[2025-06-01 20:05] VITALS: BP 153/73; PULSE 93; RESP 18; TEMP 37.1; O2SAT 98; BMI 26.6
--- NOTE | 2025-06-01 20:10 | CT_ITS ---
PROCEDURE INFORMATION: Exam: CT Abdomen And Pelvis With Contrast Exam date and time: 06/01/2025 9:08 PM Age: 79 years old Clinical indication: Abdominal pain; Additional info: Abd pain no bm flatus x 3d TECHNIQUE: Imaging protocol: Computed tomography of the abdomen and pelvis with contrast. Radiation optimization: All CT scans at this facility use at least one of these dose optimization techniques: automated exposure control; mA and/or kV adjustment per patient size (includes targeted exams where dose is matched to clinical indication); or iterative reconstruction. Contrast material: ISOVUE; Contrast volume: 75 ml; Contrast route: IV; COMPARISON: CT ABDOMEN PELVIS W CON 12/09/2022 1:28 AM FINDINGS: Lungs: Lung bases are clear. Diaphragm: Small hiatal hernia redemonstrated. Liver: Fatty liver changes with associated hepatomegaly measuring 17.2 cm. Liver otherwise unremarkable. Gallbladder and biliary ducts: Tiny stones versus sludge in the dependent portion of the gallbladder. Gallbladder otherwise unremarkable. No evident bile duct dilatation. Pancreas: Normal. No ductal dilation. Spleen: Normal. No splenomegaly. Adrenal glands: Normal. No mass. Kidneys and ureters: Normal. No hydronephrosis. Stomach and bowel: Small bowel anastomosis in the anterior right lower quadrant redemonstrated. GI tract structures otherwise unremarkable with no evident wall thickening allowing for incomplete distention. Small amounts of fecal material in the colon felt to be physiologic. Appendix: No evidence of appendicitis. Intraperitoneal space: Unremarkable. No free air. No significant fluid collection. Vasculature: Unremarkable. No abdominal aortic aneurysm. Lymph nodes: Unremarkable. No enlarged lymph nodes. Urinary bladder: Unremarkable as visualized. Reproductive: Unremarkable as visualized. Bones/joints: Unremarkable. No acute fracture. Soft tissues: Unremarkable. IMPRESSION: No acute abnormalities of the abdomen and pelvis. Nonemergent findings as above.
[2025-06-01 20:13] VITALS: BP 132/78; PULSE 74; RESP 18; TEMP 36.6; O2SAT 98
--- NOTE | 2025-06-01 20:13 | CT_ITS ---
PROCEDURE INFORMATION: Exam: CT Head Without Contrast Exam date and time: 06/01/2025 9:05 PM Age: 79 years old Clinical indication: Pain; Other: Encephalopathy non focal exam TECHNIQUE: Imaging protocol: Computed tomography of the head without contrast. Radiation optimization: All CT scans at this facility use at least one of these dose optimization techniques: automated exposure control; mA and/or kV adjustment per patient size (includes targeted exams where dose is matched to clinical indication); or iterative reconstruction. COMPARISON: No relevant prior studies available. FINDINGS: Brain: Atrophy and chronic small vessel ischemic changes. No hemorrhage. No mass effect or midline shift. Cerebral ventricles: No ventriculomegaly. Paranasal sinuses: Visualized sinuses are unremarkable. No fluid levels. Mastoid air cells: Visualized mastoid air cells are well aerated. Bones: Unremarkable. No acute fracture. Soft tissues: Unremarkable. IMPRESSION: Chronic changes in the brain but no acute intracranial abnormality.
--- NOTE | 2025-06-01 20:13 | [facility].EDGENADL ---
Discharge Plan Disposition Patient Disposition: Admitted Prescriptions Prescriptions: No Action sodium,potassium,mag sulfates [Suprep Bowel Prep Kit] 17.5-3.13-1.6 gram recon soln See Rx Instructions PO .COMPLEX Qty: 354 0RF Rx Instructions: DILUTE; drink full amount early evening before AND next morning at least 2 hr before procedure; follow w 960 mL water PO levothyroxine 100 MCG tablet 100 mcg PO DAILY cholecalciferol (vitamin D3) 10 MCG capsule 50,000 unit PO WEEKLY omeprazole 40 MG capsule,delayed release(DR/EC) 40 mg PO DAILY temazepam 30 MG capsule 30 mg PO HS prednisone 20 mg tablet 40 mg PO DAILY 5 Days Qty: 10 0RF methocarbamol 750 mg tablet 1,500 mg PO TID 7 Days Qty: 42 0RF metformin 500 mg tablet 500 mg PO DAILY paroxetine HCl 10 mg tablet 10 mg PO DAILY bupropion HCl 100 mg tablet 100 mg PO DAILY Rybelsus 3 mg tablet 3 mg PO AC methocarbamol 500 mg tablet 500 mg PO TID Qty: 90 0RF Referrals Follow up/Referrals: Kit Virgen MD [Primary Care Provider, Medical] - See instructions Clinical Impressions Clinical Impression: Encephalopathy, BEAU (acute kidney injury), Abdominal pain Instructions Patient Instructions: DI for Diarrhea and Traveler's Diarrhea in Adults, DI for Diarrhea and Traveler's Diarrhea in Children, DI for Nausea in Adults, DI for Nausea in Children Print Language Print Language: Venezuelan Discharge ED Provider: Brendan Alexis General Adult HPI General Chief complaint: Nausea/Vomiting/Diarrhea Stated complaint: vomiting,x three days AMS Time Seen by Provider: 06/01/25 19:59 Mode of Arrival: EMS Source of Information: Patient Description of Symptoms (Recalled from ER Triage Doc. by RN): Patient states she has had Nausea and vomitting for 3 days. States she has chronic abd pain. states shes unsure if she has been to a GI doctor before, son reports he thinks she has, however shes unsure. History of Present Illness HPI narrative: Patient is a 79-year-old female with past medical history of chronic abdominal pain, previous abdominal surgery, [id number] diabetes on metformin and semaglutide, chronic nausea on Phenergan who presents to the emergency department for multiple complaints. She is accompanied by her son. She has chronic abdominal pain however over the last 72 hours has gotten worse with associated nonbloody vomiting. No bowel movement or passing flatus in the last 3 days. No chest pain, no trauma. Her son has noticed that she is intermittently confused, no gait difficulties reported, no other acute complaints at this time. Has been recently prescribed an opiate which she takes on top of her Phenergan which she is concerned may be causing some of her disorientation. Please note that above description of symptoms, in this electronic medical record under categorization of recalled from ER triage doctor by RN are reflective of an initial nursing assessment, however, is not reflective of my full history and physical exam that was personally taken and clarified. Consequentially, this preceding description of symptoms, which may include the patient's categorized chief complaint in the EMR, do not reflect my personal clinical impression, and the ultimate description of history of present illness and patient stated complaints should be deferred to this section of the note. Unless stated otherwise or congruent with this section of the note, additional signs, symptoms, or incongruence should be interpreted as inaccurate with my clinical impression. Related Data Home Medications ?Medication ?Instructions ?Recorded ?Confirmed cholecalciferol (vitamin D3) 10 50,000 unit PO WEEKLY Supplement 04/13/20 12/09/22 mcg (400 unit) capsule levothyroxine 100 mcg tablet 100 mcg PO DAILY thyroid 04/13/20 12/09/22 omeprazole 40 mg capsule,delayed 40 mg PO DAILY Reflux/Acid reflux 06/04/21 12/09/22 release temazepam 30 mg capsule 30 mg PO HS Anxiety 06/04/21 12/09/22 bupropion HCl 100 mg tablet 100 mg PO DAILY Depression 12/09/22 12/09/22 metformin 500 mg tablet 500 mg PO DAILY Diabetes 12/09/22 12/09/22 paroxetine HCl 10 mg tablet 10 mg PO DAILY Depression 12/09/22 12/09/22 semaglutide 3 mg tablet (Rybelsus) 3 mg PO AC Diabetes 12/09/22 12/09/22 Previous Rx's ?Medication ?Instructions ?Recorded methocarbamol 500 mg tablet 500 mg PO TID #90 tabs 03/05/23 sodium,potassium,mag sulfates 17.5 See Rx Instructions PO .COMPLEX 04/13/24 gram-3.13 gram-1.6 gram oral soln #354 mL (Suprep Bowel Prep Kit) methocarbamol 750 mg tablet 1,500 mg (2 x 750 mg) PO TID 7 07/02/24 days #42 tabs prednisone 20 mg tablet 40 mg (2 x 20 mg) PO DAILY 5 days 07/02/24 #10 tabs Allergies Allergy/AdvReac Type Severity Reaction Status Date / Time No Known Allergies Allergy Verified 04/13/20 13:21 [facility] Disclaimer: The information contained in this section may have been updated after the patient was seen, as this information can be updated by other users. Social History Smoking Status: Never smoker second hand exposure: No alcohol intake: never substance use type: denies use current occupational status: retired Travel in the last 8 weeks?: None household members: spouse housing: house current occupational exposures/hazards: No caffeine: Yes Have you lived/traveled outside [place] in past 30 days?: No Contact w/someone who lives/traveled outside [place] past 30 days?: No Exposure to someone with infectious disease in past 14 days?: No Do you have a fever (greater than 100.4 F or 38 C)?: No Have you tested positive for COVID-19?: No Exposed to someone with COVID-19 in past 14 days?: No Do you have a sore throat?: No Do you have a cough?: No Do you have any weakness?: No Do you have any diarrhea?: No Are you experiencing any unusual bleeding?: No Do you have any muscle aches/pain?: No Do you have any abdominal pain?: No Are you experiencing loss of taste or smell?: No Other Medical History Have you received the Flu Vaccine for this season: No Have you received the Pneumonia Vaccine: No ROS Obtained: Yes Systems reviewed as appropriate & no additional complaints except as documented Physical Exam General General appearance: alert and in no apparent distress Head Head exam: atraumatic and normocephalic Eye Eye exam: Present PERRL and EOMI ENT ENT exam: Present mucous membranes moist Neck Neck exam: Present normal inspection Chest Chest inspection: Present normal inspection and symmetric chest wall rise Respiratory Respiratory exam: Present normal lung sounds bilaterally; Absent respiratory distress Cardiovascular Cardiovascular exam: Present regular rate and normal rhythm Abdominal Exam Abdominal exam: Present soft and tenderness (Mild, bilateral lower quadrants); Absent guarding or rebound Extremities Exam Extremities exam: Present normal inspection Neurological Exam Neurological exam: Present alert; Absent oriented X3 (Oriented to self, not oriented to place or time) or motor sensory deficit Psychiatric Psychiatric exam: Present normal affect Skin Skin exam: Present warm and dry Medical Decision Making Medical Records Screening: Per USPSTF and CDC recommendations, given the prevalence of disease in our region, it is our hospital?s policy to screen for HIV and viral Hepatitis for all patients aged 18 and over and those with ongoing risk factors. [place] Inquiry Pt receiving controlled substance: No Vital Signs: 06/01/25 20:05 06/01/25 20:13 Temperature 98.7 F 98 F Temperature Source Oral Oral Pulse Rate 74 Pulse Rate [Right] 93 H Respiratory Rate 18 18 Blood Pressure 132/78 Blood Pressure [Right Arm] 153/73 H Blood Pressure Mean [Right Arm] 99 02 Sat by Pulse Oximetry 98 98 Oxygen Delivery Method Room Air Room Air Lab Data Lab Results 06/01/25 20:26: WBC 13.2 H, RBC 5.57 H, Hgb 17.6 H, Hct 51.7 H, MCV 92.8, MCH 31.6 H, MCHC 34.0, RDW 12.2, Plt Count 346, MPV 9.9, Neut % (Auto) 60.7, Lymph % (Auto) 28.1, Mccormick % (Auto) 8.5, Eos % (Auto) 0.2, Baso % (Auto) 0.9, Neut # (Auto) 8.0 H, Lymph # (Auto) 3.7, Mccormick # (Auto) 1.1 H, Eos # (Auto) 0.0, Baso # (Auto) 0.1, Sodium 139, Potassium 5.0, Chloride 101, Carbon Dioxide 18 L, Anion Gap 25.0 H, BUN 40 H, Creatinine 1.20 H, Estimated Creat Clear 47, Estimated GFR 43 L, Est GFR ( Amer) 53 L, Glucose 186 H, Calcium 10.4 H, Magnesium 2.0, Total Bilirubin 0.9, AST 49 H, ALT 77, Alkaline Phosphatase 100, Troponin I < 0.01, Total Protein 8.9 H, Albumin 5.3 H, Globulin 3.6 H, Albumin/Globulin Ratio 1.5, Lipase 78 06/01/25 20:53: Ammonia < 9 L 06/01/25 21:19: Urine Color Yellow, Urine Appearance Clear, Urine pH 5.5, Ur Specific [place] 1.015, Urine Protein Trace, Urine Glucose (UA) Negative, Urine Ketones 3+, Urine Blood Trace-i, Urine Nitrate Negative, Urine Bilirubin 1+ A, Urine Urobilinogen 0.2, Ur Leukocyte Esterase Trace, Urine RBC None, Urine WBC None, Ur Squamous Epith Cells None, Urine Bacteria None 06/01/25 20:26 06/01/25 20:26 Orders (Tests/Meds): ED MEDICATIONS Discontinued Medications Generic Name Dose Route Start Last Admin Trade Name Freq PRN Reason Stop Dose Admin Acetaminophen 1,000 mg 06/01/25 20:10 06/01/25 20:30 Acetaminophen 1,000mg/100ml Vial IV 06/01/25 20:11 1,000 mg ONCE ONE Administration Lactated Ringer's 1,000 mls @ 999 mls/hr 06/01/25 20:10 06/01/25 20:30 Lactated Ringer's 1000 Ml Bag IV 06/01/25 21:10 999 mls/hr .Q1H1M ONE Administration Iopamidol 75 ml 06/01/25 21:13 06/01/25 21:14 Iopamidol-370 (76%);100ml Bottle IV 06/01/25 21:14 75 ml ONCE ONE Administration Ondansetron HCl 4 mg 06/01/25 20:10 06/01/25 20:30 Ondansetron 4mg/2ml Vial IV 06/01/25 20:11 4 mg ONCE ONE Administration Sodium Chloride 10 ml 06/01/25 21:13 06/01/25 21:14 Sodium Chloride 0.9% 10ml Syr (Rad Only) IV 06/01/25 21:14 10 ml ONCE ONE Administration ORDERS Category Date Time Status CT abdomen pelvis w con Stat Cat Scan 06/01/25 20:[address] head/brain wo con Stat Cat Scan 06/01/25 20:13 Completed Ammonia Stat Lab 06/01/25 20:53 Completed CBC w/Auto Diff [Complete Blood Count Auto Diff] Stat Lab 06/01/25 20:26 Completed CMP [Comprehensive Metabolic Panel] Stat Lab 06/01/25 20:26 Completed Lipase Stat Lab 06/01/25 20:26 Completed MG [Magnesium] Stat Lab 06/01/25 20:26 Completed Trop I [Troponin I] Stat Lab 06/01/25 20:26 Completed UA [Urinalysis and Microscopic] Stat Lab 06/01/25 21:19 Completed EKG Request [ECG Request] Stat Y 06/01/25 20:10 Ordered ECG Data Tracing #1: Independently interpreted by me rate is 70, rhythm is regular, axis is normal, no ST elevation in anatomical contiguous leads, QTc 418. Medical Decision Narrative: In summary patient is a 79-year-old female with past medical history of scrota above presents to the emergency department for evaluation of acute on chronic abdominal pain, disorientation in the setting of Phenergan and opiate use. Patient is hemodynamically stable and pleasantly confused upon arrival, is conversational but is only alert and oriented x 1. Differential diagnosis with respect to her abdominal pain includes pancreatitis, bowel obstruction, viral syndrome, among others. We did specked to her disorientation includes polypharmacy, intracranial hemorrhage, urinary tract infection among others. Clinically patient does not have a CVA on physical exam I have no concern for this at this time. Initial interventions include Tylenol, Zofran, crystalloid bolus initial hematologic labs reviewed by me no significant leukocytosis, no transfusable anemia, BEAU per rifle criteria with 50% elevation of creatinine from baseline. CT imaging of the abdomen pelvis informally visualized by me no obvious high-grade obstruction. Urinalysis interpreted by me and not consistent with infection. Formal head CT read negative. CT abdomen pelvis no acute abnormalities. Upon repeat evaluation patient does not have any critical abdominal findings that would warrant admission however she lives alone and son at bedside after conversation we do not have an established safety plan. I am hopeful that she has polypharmacy and will improve after observation but given that she is acutely disoriented inpatient management is warranted given that she is not safe to go home. I do not think that she has [employer] infection with no meningismus or infectious symptoms on exam. Given this lumbar puncture was considered but will be deferred. The case was discussed with hospital medicine regarding management they will admit the patient to their service for continued evaluation at this time. Critical Care Critical Care Time Critical Care Time: No
[2025-06-01] MEDS: ONDANSETRON 4MG/2ML VIAL 4 MG IV (20:30)
[2025-06-01] MEDS: ACETAMINOPHEN 1,000MG/100ML VIAL 1000 MG IV (20:30)
[2025-06-01] MEDS: LACTATED RINGERS 1000ML 1,000 ML 999 ML IV (20:30)
--- NOTE | 2025-06-01 20:35 | ECG_ITS ---
APPROVED REPORT Exam: Resting ECG HR:70 bpm ECG Measurements Heart Rate 70 AXES CA 133 P 56 QRSd 87 QRS 65 QT 397 T 83 QTc 418 Conclusion SINUS RHYTHM NORMAL ECG UNCONFIRMED REPORT Electronically signed by : SHIRA MADERA, 06/03/2025 05:00:23
[2025-06-01 20:37] LABS: Hematocrit 51.7 % (37.0-47.0); Hemoglobin 17.6 g/dL (12.2-16.2); Immature Granulocytes % 1.6 %; Mean Corpuscular HGB Conc 34.0 g/dL (31.8-35.4); Mean Corpuscular Hemoglobin 31.6 pg (27.0-31.2); Mean Corpuscular Volume 92.8 fl (81-99); Nucleated Red Blood Cells % 0 %; Platelet Count 346 K/mm3 (142-424); Red Blood Count 5.57 M/mm3 (4.20-5.40); Red Cell Distribution Width-SD 42.0 fL; White Blood Count 13.2 K/mm3 (4.8-10.8)
[2025-06-01 20:50] LABS: Albumin Level 5.3 g/dl (3.5-5.0); Chloride 101 mmol/L (98-107); Sodium 139 mmol/L (136-145)
[2025-06-01 20:51] LABS: Potassium 5.0 mmoL/L (3.5-5.1)
[2025-06-01 20:53] LABS: Alanine Aminotransferase 77 U/L (12-78); Albumin/Globulin Ratio 1.5 (1.1-1.8); Alkaline Phosphatase 100 U/L (38-126); Anion Gap 25.0 mEq/L (5-15); Aspartate Amino Transferase 49 U/L (14-36); Bilirubin,Total 0.9 mg/dl (0.2-1.3); Blood Urea Nitrogen 40 mg/dl (7-17); Calcium 10.4 mg/dl (8.4-10.2); Carbon Dioxide 18 mmol/L (22.0-30.0); Creatinine Clearance Estimated 47 mL/min (50-200); Creatinine,Serum 1.20 mg/dl (0.52-1.04); Estimated Glomerular Filt Rate 43 ml/min (>60); GFR (African American) 53 ML/MIN (>60); Globulin 3.6 g/dL (1.3-3.2); Glucose 186 mg/dl (74-100); Lipase 78 U/L (23-300); Total Protein,Serum 8.9 g/dl (6.3-8.2)
[2025-06-01 20:54] LABS: Magnesium 2.0 mg/dl (1.6-2.3)
[2025-06-01 21:07] LABS: Troponin I < 0.01 ng/ml (0.00-0.034)
[2025-06-01 21:10] LABS: Ammonia < 9 umol/L (9-30)
[2025-06-01] MEDS: SODIUM CHLORIDE 0.9% 10ML SYR (RAD ONLY) 10 ML IV (21:14)
[2025-06-01] MEDS: IOPAMIDOL-370 (76%);100ML BOTTLE 75 ML IV (21:14)
[2025-06-01 21:33] LABS: Microscopic, Urine URINE MICROSCOPIC (MICROSCOPIC)
[2025-06-01 21:57] LABS: Color,Urine YELLOW (Yellow); Glucose,Urine (UA) Negative (Negative); Ketones,Urine 3+ (Negative); Leukocyte Esterase,Urine TRACE (Negative); PH,Urine 5.5 (5.0-8.5); Protein,Urine TRACE (Negative); Specific Gravity, Urine 1.015 (1.005-1.030); Urobilinogen,Urine 0.2 EU/dl (0.2)
[2025-06-01 22:02] LABS: Bilirubin,Urine 1+ (Negative)
--- NOTE | 2025-06-01 22:57 | PC.NURSE ---
report called to gamaliel
[2025-06-01 23:18] VITALS: BP 134/88; PULSE 74; RESP 20; TEMP 36.8; O2SAT 98
--- NOTE | 2025-06-01 23:19 | P.HP_ITS ---
<Statement entered by Marcellus Garcia MD - 06/08/25 15:54> Agree with plan of care as outlined by the SWABBER. History of Present Illness *Admission Date: 06/01/25 *Reason for visit:: Confusion, nausea, vomiting *History of present illness: This is a 79-year-old female who has a past medical history significant for chronic abdominal pain, pon-[id number] diabetes, and chronic nausea who presents to the emergency room with a chief complaint of no nbilious/bloody emesis. Due to patient's symptoms, she presented to the emergency room for evaluation. While in emergency room, CT scan of the head revealed chronic changes in the brain but no acute intracranial abnormality. CT scan of the abdomen and pelvis revealed no acute abnormalities of the abdomen and pelvis. Patient appeared to be confused still and dehydrated with acute kidney injury. As a result, hospital medicine was consulted for further management. During my evaluation of the patient, patient states over the last 72 hours she has been having multiple episodes of nonbilious/nonbloody emesis she reports no bowel movement for the past 3 days but is having positive flatus. Son did notice some intermittent confusion. He reports that she takes chronic opioids., Patient lives alone. She is currently denying chest pain, lightheadedness, dizziness, upper or lower extremity weakness, lateral gaze deficit, slurred speech, deviation in tongue, shortness of breath, dyspnea,. Patient states she is hungry and is wanting to eat. Additional pertinent labs obtained include a white blood cell count of 13.2, red blood cell count of 5.57, hemoglobin 17.6, hematocrit 51.7, carbon oxide of 18, BUN 40, creatinine 1.20, GFR 43, blood glucose 186, calcium of 10.4, AST of 49, total protein 8.9, and albumin 5.3. [facility] Disclaimer: The information contained in this section may have been updated after the patient was seen, as this information can be updated by other users. Social History Smoking Status: Never smoker second hand exposure: No alcohol intake: never substance use type: denies use current occupational status: retired Travel in the last 8 weeks?: None household members: spouse housing: house current occupational exposures/hazards: No caffeine: Yes Have you lived/traveled outside [place] in past 30 days?: No Contact w/someone who lives/traveled outside US past 30 days?: No Exposure to someone with infectious disease in past 14 days?: No Do you have a fever (greater than 100.4 F or 38 C)?: No Have you tested positive for COVID-19?: No Exposed to someone with COVID-19 in past 14 days?: No Do you have a sore throat?: No Do you have a cough?: No Do you have any weakness?: No Do you have any diarrhea?: No Are you experiencing any unusual bleeding?: No Do you have any muscle aches/pain?: No Do you have any abdominal pain?: No Are you experiencing loss of taste or smell?: No Other Medical History Have you received the Flu Vaccine for this season: No Have you received the Pneumonia Vaccine: No Review of Systems Review of Systems Review of systems:: pertinent systems reviewed and negative unless documented below Constitutional Constitutional: Reports system reviewed and no additional complaints, except as documented Eyes Eyes: Reports system reviewed and no additional complaints, except as documented ENT Ears, Nose, Mouth, and Throat: Reports system reviewed and no additional complaints, except as documented *Cardiovascular Cardiovascular: Reports system reviewed and no additional complaints, except as documented *Respiratory Respiratory: Reports system reviewed and no additional complaints, except as documented *Gastrointestinal Gastrointestinal: Reports abdominal pain, Reports constipation, Reports nausea and Reports vomiting *Genitourinary Genitourinary: Reports system reviewed and no additional complaints, except as documented *Musculoskeletal Musculoskeletal: Reports system reviewed and no additional complaints, except as documented Integumentary/Breasts Skin/Breast: Reports system reviewed and no additional complaints, except as documented *Neurologic Neurologic: Reports confusion Psychiatric Psychiatric: Reports confusion Endocrine Endocrine: Reports system reviewed and no additional complaints, except as documented Hematologic/Lymphatic Hematologic/Lymphatic: Reports system reviewed and no additional complaints, except as documented Allergic/Immunologic Allergic/Immunologic: Reports system reviewed and no additional complaints, except as documented Meds Home Medications and Allergies Home Medications ?Medication ?Instructions ?Recorded ?Confirmed ?Type cholecalciferol (vitamin D3) 10 50,000 unit PO WEEKLY Supplement 04/13/20 12/09/22 History mcg (400 unit) capsule levothyroxine 100 mcg tablet 100 mcg PO DAILY thyroid 04/13/20 12/09/22 History omeprazole 40 mg capsule,delayed 40 mg PO DAILY Reflux /Acid reflux 06/04/2105/23 History release temazepam 30 mg capsule 30 mg PO HS Anxiety 06/04/21 12/09/22 History bupropion HCl 100 mg tablet 100 mg PO DAILY Depression 12/09/22 12/09/22 History metformin 500 mg tablet 500 mg PO DAILY Diabetes 05/2312/09/22 History paroxetine HCl 10 mg tablet 10 mg PO DAILY Depression 12/09/22 12/09/22 History semaglutide 3 mg tablet (Rybelsus) 3 mg PO AC Diabetes 12/09/22 12/09/22 History methocarbamol 500 mg tablet 500 mg PO TID #90 tabs 11/20 Rx sodium,potassium,mag sulfates 17.5 See Rx Instructions PO .COMPLEX 04/13/24 Rx gram-3.13 gram-1.6 gram oral soln #354 mL (Suprep Bowel Prep Kit) methocarbamol 750 mg tablet 1,500 mg (2 x 750 mg) PO T ID 7 07/02/24 Rx days #42 tabs prednisone 20 mg tablet 40 mg (2 x 20 mg) PO DAILY 5 days 07/02/24 Rx #10 tabs New Prescriptions to Start Prescriptions: Allergies Allergy/AdvReac Type Severity Reaction Status Date / Time No Known Allergies Allergy Verified 04/13/20 13:21 Exam Data for Last 24 hours Vital signs and Labs for Last 24 Hours: Temp Pulse Resp BP Pulse Ox O2 Del Method 98 F 74 18 132/78 98 Room Air 06/01/25 20:13 06/01/25 20:13 06/01/25 20:13 06/01/25 20:13 06/01/25 20:13 06/01/25 20:13 Laboratory Results - last 24 hr 06/01/25 20:26: WBC 13.2 H, RBC 5.57 H, Hgb 17.6 H, Hct 51.7 H, MCV 92.8, MCH 31.6 H, MCHC 34.0, RDW 12.2, Plt Count 346, MPV 9.9, Neut % (Auto) 60.7, Lymph % (Auto) 28.1, [place] % (Auto) 8.5, Eos % (Auto) 0.2, Baso % (Auto) 0.9, Neut # (Auto) 8.0 H, Lymph # (Auto) 3.7, [place] # (Auto) 1.1 H, Eos # (Auto) 0.0, Baso # (Auto) 0.1, Sodium 139, Potassium 5.0, Chloride 101, Carbon Dioxide 18 L, Anion Gap 25.0 H, BUN 40 H, Creatinine 1.20 H, Estimated Creat Clear 47, Estimated GFR 43 L, Est GFR ( Amer) 53 L, Glucose 186 H, Calcium 10.4 H, Magnesium 2.0, Total Bilirubin 0.9, AST 49 H, ALT 77, Alkaline Phosphatase 100, Troponin I < 0.01, Total Protein 8.9 H, Albumin 5.3 H, Globulin 3.6 H, Albumin/Globulin Ratio 1.5, Lipase 78 06/01/25 20:53: Ammonia < 9 L 06/01/25 21:19: Urine Color Yellow, Urine Appearance Clear, Urine pH 5.5, Ur Specific [place] 1.015, Urine Protein Trace, Urine Glucose (UA) Negative, Urine Ketones 3+, Urine Blood Trace-i, Urine Nitrate Negative, Urine Bilirubin 1+ A, Urine Urobilinogen 0.2, Ur Leukocyte Esterase Trace, Urine RBC None, Urine WBC None, Ur Squamous Epith Cells None, Urine Bacteria None I & O for Last 24 hours: Intake & Output 05/29/25 05/30/25 05/31/25 06/01/25 23:59 23:59 23:59 23:59 Intake Total 1000 / 1000 Balance 1000 / 1000 Weight 77.111 kg Constitutional Constitutional: no acute distress and cooperative *Routine HEENT Exam Head: Present normocephalic and atraumatic Eye: Present EOMI and PERRL ENT: Present mucous membranes moist *Routine Neck Exam Neck: Present supple, full ROM and trachea midline *Routine Respiratory Exam Respiratory: Present CTA bilaterally, normal respiratory effort, able to speak in complete sentences and symmetric chest movement *Routine Cardiovascular Exam Cardiovascular: Present RRR, Normal S1 and Normal S2 *Routine Abdominal Exam Abdominal: Present soft and normoactive bowel sounds *Routine Rectal Exam Rectal:: deferred *Routine Genitalia Exam Genitalia:: deferred *Routine Extremities Exam Extremities: Present full ROM and normal capillary refill Routine Back/Spine/Pelvis Exam Back/Spine: Present full ROM *Routine Skin Exam Skin: Present intact, dry, warm and normal turgor *Routine Neurological Exam Neurological: Present alert, CN II-XII intact, altered mental status and normal speech Routine Psychiatric Exam Psychiatric: Present normal affect, normal thought process and cooperative H&P: Result Impressions 79-year-old female presents with a 3-day history of nausea and vomiting presents dehydrated with some altered mental status. Notably, patient is prescribed opioids and there is a suspicion for polypharmacy Assessment and Plan *Assessment and plan (1) Encephalopathy: Status: Acute Qualifiers: Encephalopathy type: unspecified encephalopathy Qualified Code(s): G93.40 - Encephalopathy, unspecified Category: Medical Code(s): G93.40 - Encephalopathy, unspecified (2) AMS (altered mental status): Status: Acute Qualifiers: Altered mental status type: unspecified Qualified Code(s): R41.82 - Altered mental status, unspecified Category: Medical Code(s): R41.82 - Altered mental status, unspecified (3) BEAU (acute kidney injury): Status: Acute Category: Medical Code(s): N17.9 - Acute kidney failure, unspecified (4) Polycythemia: Status: Acute Category: Medical Code(s): D75.1 - Secondary polycythemia (5) Dehydration: Status: Acute Category: Medical Code(s): E86.0 - Dehydration (6) Metabolic acidosis: Status: Acute Category: Medical Code(s): E87.20 - Acidosis, unspecified (7) Hyperglycemia: Status: Acute Category: Medical Code(s): R73.9 - Hyperglycemia, unspecified (8) Leukocytosis: Status: Acute Qualifiers: Leukocytosis type: unspecified Qualified Code(s): D72.829 - Elevated white blood cell count, unspecified Category: Medical Code(s): D72.829 - Elevated white blood cell count, unspecified Plan Assessment: Possible metabolic encephalopathy Polypharmacy Altered mental status - CT scan of the head is negative for any acute intracranial process - There is high suspicion of patient's multiple medications are causing increase d confusion. Coupled with dehydration and may have exacerbated patient's symptoms - If after giving patient IV hydration and time away from opioids, her symptoms do not improve. Will obtain MRI of the brain without contrast and CTA of the head and neck -Neurochecks every 4 hours - Will consider neurologist consultation Acute kidney injury: Baseline creatinine is within normal limits Polycythemia Dehydration Metabolic acidosis Leukocytosis Nausea vomiting - Patient's acute kidney injury is most likely in the setting of a prerenal disposition intravascular volume loss through the GI tract - Will avoid nephrotoxic drugs - Will give LR at 100 mL an hour - Will monitor patient's serum bicarbonate and if it does not improve will consider sodium bicarbonate supplementation - Patient does have a degree of polycythemia I believe she is hemoconcentrated from dehydration - Leukocytosis is most likely in the setting of contraction from the nausea and vomiting - Will obtain procalcitonin in a.m. - If patient's leukocytosis worsen, will obtain blood cultures x 2 Hyperglycemia - Accu-Cheks AC and at bedtime with with mild sliding scale coverage Plan: Admit patient to the MedSurg unit Electrolyte replacement Cardiac/1800 ADA diet CBC/BMP daily 250 mg in 2 cassettes sodium p.o. daily Senokot 1 tablet daily 4 mg Zofran IV push every 8 hours for nausea 40 mg of Protonix p.o. daily Full code I will discussed this case with attending physician Dr. Garcia and I look forward to more input
--- NOTE | 2025-06-01 23:21 | PC.NURSE ---
Patient arrived to floor via wheelchair from ED at 23:20.
[2025-06-01] MEDS: LACTATED RINGERS 1000ML 1,000 ML 100 ML IV (23:45)
[2025-06-02] VITALS: BP 147/68; PULSE 97; RESP 16; TEMP 36.8; O2SAT 97
[2025-06-02] MEDS: SIMETHICONE 80MG CHEWABLE TABLET 80 MG PO (00:05)
--- NOTE | 2025-06-02 00:10 | PC.NURSE ---
Home medication reconciliation was completed by using the patient's external medication history. Patient expressed an ability to recall only a few of the listed medications she takes at home; she stated that she could not remember the rest. GCS is 15 at this time, but the patient does endorse frequent intermittent periods of forgetfulness (particular to short-term memory). Patient verbalizes an awareness of these acute periods as they occur and is easily reoriented.
[2025-06-02] MEDS: PANTOPRAZOLE 40MG TABLET 40 MG PO ×2 (01:05→20:25)
[2025-06-02] MEDS: ONDANSETRON 4MG/2ML VIAL 4 MG IV (02:50)
[2025-06-02] MEDS: ALUMINUM/MAGNESIUM/SIMETHICONE 30ML UDC 30 ML PO (03:00)
[2025-06-02 04:00] VITALS: BP 178/72; PULSE 56; TEMP 36.6; O2SAT 98; BMI 23.0
[2025-06-02 04:58] LABS: POC Glucose,Bedside 129 gm/dL (70-110)
[2025-06-02] MEDS: PROMETHAZINE HCL 25MG/ML 1ML VIAL 25 MG IV (05:05)
[2025-06-02] MEDS: SODIUM CHLORIDE 0.9% 25ML BAG 25 ML IV (05:05)
[2025-06-02 05:54] LABS: Hematocrit 49.9 % (37.0-47.0); Hemoglobin 16.4 g/dL (12.2-16.2); Immature Granulocytes % 1.1 %; Mean Corpuscular HGB Conc 32.9 g/dL (31.8-35.4); Mean Corpuscular Hemoglobin 31.1 pg (27.0-31.2); Mean Corpuscular Volume 94.7 fl (81-99); Nucleated Red Blood Cells % 0 %; Platelet Count 268 K/mm3 (142-424); Red Blood Count 5.27 M/mm3 (4.20-5.40); Red Cell Distribution Width-SD 42.5 fL; White Blood Count 22.7 K/mm3 (4.8-10.8)
--- NOTE | 2025-06-02 05:55 | PC.NURSE ---
Ms Malu Nolasco was newly admitted this shift on behalf of the documented diagnoses metabolic encephalopathy and abdominal pain. Admission assessments were performed by me. Physical assessment was performed (see nursing shift biophysical intervention) as appropriately for this shift. She ambulates independently in her room without difficulties. Scheduled medications administered per MAR. Lactated Ringers continue to infuse at 100 mL/hr. *See provider notification interventions for 01:02, 02:56, 04:54, and 05:34. Simethicone, Maalox, Zofran, and Phenergan were as needed medications administered per MAR for heartburn and nausea complaints. Patient continues to have reports of persistent heartburn this morning. Denies chest pain, dizziness. She stated that the Simethicone and the Maalox did provide some short-term relief. Patient claims that her heartburn symptoms are contributing to her nausea. She did have one blood-tinged unmeasured emesis episode this morning. Patient has had poor oral intake and has refused snacks this shift. Juvencio Montanez APRN aware of situation. Sucralfate additionally ordered scheduled to be given per MAR this morning.
[2025-06-02 05:59] LABS: Chloride 105 mmol/L (98-107); Sodium 138 mmol/L (136-145)
[2025-06-02 06:00] LABS: Potassium 4.4 mmoL/L (3.5-5.1)
[2025-06-02 06:03] LABS: Anion Gap 19.4 mEq/L (5-15); Blood Urea Nitrogen 31 mg/dl (7-17); Calcium 10.1 mg/dl (8.4-10.2); Carbon Dioxide 18 mmol/L (22.0-30.0); Creatinine Clearance Estimated 49 mL/min (50-200); Creatinine,Serum 0.80 mg/dl (0.52-1.04); Estimated Glomerular Filt Rate 69 ml/min (>60); GFR (African American) 84 ML/MIN (>60); Glucose 138 mg/dl (74-100)
[2025-06-02] MEDS: SUCRALFATE 1GM TABLET 1 GM PO ×4 (06:06→20:25)
[2025-06-02 07:28] VITALS: BP 156/71; PULSE 78; RESP 16; TEMP 37.1; O2SAT 98
--- NOTE | 2025-06-02 07:52 | XR_ITS ---
FINAL REPORT TECHNIQUE: Single view chest CLINICAL HISTORY: N/V, sepsis workup FINDINGS: A single view of the chest was obtained. The heart and mediastinum are within normal limits. The lungs are clear but with low volumes. There is no pneumothorax. IMPRESSION: No acute cardiopulmonary process. Reviewed, Interpreted and Dictated by Jessica Gonsales MD Transcribed by Marylin Fabian Authenticated and [facility]
[2025-06-02] MEDS: PIPERCILLIN/TAZO 3.375 GM in 0.9 % SODIUM CHLORIDE 50 ML IV ×3 (08:24→20:24)
[2025-06-02] MEDS: DOCUSATE SODIUM 250MG CAPSULE 250 MG PO (08:25)
[2025-06-02] MEDS: HEPARIN SODIUM 5,000 UNIT/ML VIAL 5000 UNIT SUBCUT ×2 (08:25→20:25)
--- NOTE | 2025-06-02 08:35 | HMH.PHAAMS2 ---
- Antimicrobial Stewardship Review culture & sensitivity review Stewardship interventions: culture & sensitivity review (WBC INCREASED FROM 13.2K TO 22.7K, AFEBRILE, CX PENDING, PATIENT ON ZOSYN CURRENTLY.)
[2025-06-02] MEDS: LACTATED RINGERS 1000ML 1,000 ML 100 ML IV (09:43)
[2025-06-02 09:52] LABS: RBC Morphology Normal; Total Cells Counted 100
[2025-06-02 09:58] LABS: Procalcitonin 0.078 ng/mL (0.0-2.0)
[2025-06-02 11:57] LABS: POC Glucose,Bedside 137 gm/dL (70-110)
--- NOTE | 2025-06-02 12:33 | EXP.PN ---
Subjective *Date: 06/02/25 *Time: 16:22 Interval history: Patient feeling better today, nausea/vomiting resolved. No abdominal pains. WBC bumped to 22.7 today however. Started Zosyn, monitor until tomorrow. No focal infectious symptoms. Exam Data for Last 24 hours Vital signs and Labs for Last 24 Hours: Temp Pulse Resp BP Pulse Ox O2 Del Method 98.8 F 78 16 156/71 H 98 Room Air 06/02/25 07:28 06/02/25 07:28 06/02/25 07:28 06/02/25 07:28 06/02/25 07:28 06/02/25 07:28 Laboratory Results - last 24 hr 06/01/25 20:26: WBC 13.2 H, RBC 5.57 H, Hgb 17.6 H, Hct 51.7 H, MCV 92.8, MCH 31.6 H, MCHC 34.0, RDW 12.2, Plt Count 346, MPV 9.9, Neut % (Auto) 60.7, Lymph % (Auto) 28.1, [place] % (Auto) 8.5, Eos % (Auto) 0.2, Baso % (Auto) 0.9, Neut # (Auto) 8.0 H, Lymph # (Auto) 3.7, [place] # (Auto) 1.1 H, Eos # (Auto) 0.0, Baso # (Auto) 0.1, Sodium 139, Potassium 5.0, Chloride 101, Carbon Dioxide 18 L, Anion Gap 25.0 H, BUN 40 H, Creatinine 1.20 H, Estimated Creat Clear 47, Estimated GFR 43 L, Est GFR ( Amer) 53 L, Glucose 186 H, Calcium 10.4 H, Magnesium 2.0, Total Bilirubin 0.9, AST 49 H, ALT 77, Alkaline Phosphatase 100, Troponin I < 0.01, Total Protein 8.9 H, Albumin 5.3 H, Globulin 3.6 H, Albumin/Globulin Ratio 1.5, Lipase 78 06/01/25 20:53: Ammonia < 9 L 06/01/25 21:19: Urine Color Yellow, Urine Appearance Clear, Urine pH 5.5, Ur Specific [place] 1.015, Urine Protein Trace, Urine Glucose (UA) Negative, Urine Ketones 3+, Urine Blood Trace-i, Urine Nitrate Negative, Urine Bilirubin 1+ A, Urine Urobilinogen 0.2, Ur Leukocyte Esterase Trace, Urine RBC None, Urine WBC None, Ur Squamous Epith Cells None, Urine Bacteria None 06/02/25 04:51: POC Glucose 129 H 06/02/25 05:39: WBC 22.7 H* D, RBC 5.27, Hgb 16.4 H, Hct 49.9 H, MCV 94.7, MCH 31.1, MCHC 32.9, RDW 12.2, Plt Count 268, MPV 10.9 H, Neut % (Auto) 60.1, Lymph % (Auto) 28.5, [place] % (Auto) 9.3, Eos % (Auto) 0.4, Baso % (Auto) 0.6, Neut # (Auto) 13.6 H, Lymph # (Auto) 6.5 H, [place] # (Auto) 2.1 H, Eos # (Auto) 0.1, Baso # (Auto) 0.1, Total Counted 100, Neutrophils % (Manual) 67, Lymphocytes % (Manual) 27, Monocytes % (Manual) 6, Platelet Estimate Normal, RBC Morphology Normal, Sodium 138, Potassium 4.4, Chloride 105, Carbon Dioxide 18 L, Anion Gap 19.4 H, BUN 31 H, Creatinine 0.80 D, Estimated Creat Clear 49, Estimated GFR 69, Est GFR ( Amer) 84 D, Glucose 138 H D, Calcium 10.1, Procalcitonin 0.078 06/02/25 11:48: POC Glucose 137 H I & O for Last 24 hours: Intake & Output 05/30/25 05/31/25 06/01/25 06/02/25 23:59 23:59 23:59 23:59 Intake Total 1000 / 1100 1146.667 / 1146.667 Balance 1000 / 1100 1146.667 / 1146.667 Weight 77.111 kg 66.451 kg Constitutional Constitutional: no acute distress and chronically ill appearing *Routine HEENT Exam Head: Present normocephalic Eye: Present EOMI and PERRL ENT: Present mucous membranes moist *Routine Neck Exam Neck: Present supple; Absent lymphadenopathy *Routine Respiratory Exam Respiratory: Present CTA bilaterally *Routine Cardiovascular Exam Cardiovascular: Present RRR *Routine Abdominal Exam Abdominal: Present soft and normoactive bowel sounds; Absent tenderness *Routine Extremities Exam Extremities: Absent cyanosis, clubbing or edema *Routine Skin Exam Skin: Present warm; Absent rash *Routine Neurological Exam Neurological: Present alert and oriented X3 Assessment and Plan *Assessment and plan (1) Dehydration: Status: Acute Category: Medical Code(s): E86.0 - Dehydration Plan Malu Nolasco is a 79-year-old female who presented with refractory nausea/vomiting and was admitted for the same, acute metabolic encephalopathy. #Acute metabolic encephalopathy, resolved #Nausea/vomiting, resolved #GERD #History of PUD #Leukocytosis #Dehydration, hemoconcentration, BEAU ? Patient presented with refractory nausea/vomiting and some abdominal pain over the past few days, CT abdomen/pelvis without acute findings. ? Patient received IV fluid resuscitation, Zofran, and Protonix overnight with resolution of symptoms today. Tolerating p.o. intake without issues. ? Initially had hemoconcentration, improved today. No signs of blood loss anemia. Creatinine improved from 1.2-0.80 today. ? However, WBC bumped from 13-22.7 today. No focal infectious symptoms, vital signs stable. Likely reactive, will continue to monitor to tomorrow. ? Patient states she has a history of PUD, had been started on omeprazole 40 mg twice daily. However, she has not been taking it for the past few days. She states whenever she does not take her PPI she has nausea/vomiting. ? Increased Protonix 40 mg twice daily. ? Per medication review, patient takes Mobic 15 mg daily. Will discontinue given history of PUD. ? Started Zosyn 3.375 g every 6 hours empirically, follow-up blood culture. UA, CXR unremarkable. ? Given stability of symptoms, will have patient follow-up GI on an outpatient basis. She states she has had a recent EGD which did not show acute findings. #Type 2 diabetes ? Follow-up hemoglobin A1c. Hold metformin for now. Continue home gabapentin 30 mg 3 times daily. #Hypothyroidism ? Levothyroxine 88 mcg. Follow-up TSH. #Anxiety/depression ? Continue bupropion 100 mg 3 times daily, temazepam 30 mg as needed nightly. Full code DVT prophylaxis: Lovenox 40 mg Home medications: Restarted.
[2025-06-02 13:24] LABS: Adenovirus,PCR Not Detected (NotDetected); Chlamydophila Pneumoniae, PCR Not Detected (NotDetected); Coronavirus 19, PCR Not Detected (NotDetected); Coronovirus HKU1,PCR Not Detected (NotDetected); Influenza A, PCR Not Detected (NotDetected); Influenza AH1, 2009 Not Detected (NotDetected); Influenza AH1, PCR Not Detected (NotDetected); Influenza AH3,PCR Not Detected (NotDetected); Influenza B, PCR Not Detected (NotDetected); Mycoplasma Pneumoniae, PCR Not Detected (NotDetected); Parainfluenza 1, PCR Not Detected (NotDetected); Parainfluenza 2, PCR Not Detected (NotDetected); Parainfluenza 3, PCR Not Detected (NotDetected); Parainfluenza 4, PCR Not Detected (NotDetected)
[2025-06-02 15:59] VITALS: BP 125/73; PULSE 64; RESP 16; TEMP 36.9; O2SAT 98
[2025-06-02 18:53] LABS: POC Glucose,Bedside 138 gm/dL (70-110)
[2025-06-02 20:00] VITALS: BP 145/71; PULSE 75; RESP 16; TEMP 36.5; O2SAT 97
[2025-06-02] MEDS: GABAPENTIN 300MG CAPSULE 300 MG PO (20:25)
--- NOTE | 2025-06-03 02:14 | PC.NURSE ---
Pt AOx4 with intermittent confusion and forgetfulness. Tolerating room air. Receiving IVABx. 20 RAC. Denies pain, nausea, and vomiting. Standby assist to bathroom. Currently resting in bed with eyes closed. Respirations even and unlabored. Bed low, locked, and call light is in reach.
[2025-06-03] MEDS: PIPERCILLIN/TAZO 3.375 GM in 0.9 % SODIUM CHLORIDE 50 ML IV ×2 (02:31→08:27)
[2025-06-03 04:00] VITALS: BP 133/61; PULSE 62; RESP 16; TEMP 36.9; O2SAT 97; BMI 22.4
[2025-06-03] MEDS: SUCRALFATE 1GM TABLET 1 GM PO ×2 (05:36→11:14)
[2025-06-03 05:46] LABS: POC Glucose,Bedside 138 gm/dL (70-110)
[2025-06-03 06:32] LABS: Hemoglobin A1C 6.6 % (4.0-6.0)
[2025-06-03 06:37] LABS: Chloride 105 mmol/L (98-107); Potassium 4.1 mmoL/L (3.5-5.1); Sodium 140 mmol/L (136-145)
[2025-06-03 06:40] LABS: Blood Urea Nitrogen 23 mg/dl (7-17); Creatinine Clearance Estimated 47 mL/min (50-200); Creatinine,Serum 0.90 mg/dl (0.52-1.04); Estimated Glomerular Filt Rate 61 ml/min (>60); GFR (African American) 73 ML/MIN (>60)
[2025-06-03 06:41] LABS: Anion Gap 14.1 mEq/L (5-15); Carbon Dioxide 25 mmol/L (22.0-30.0)
[2025-06-03 06:57] LABS: Calcium 9.4 mg/dl (8.4-10.2); Glucose 120 mg/dl (74-100)
[2025-06-03 07:11] LABS: Hematocrit 42.2 % (37.0-47.0); Hemoglobin 14.6 g/dL (12.2-16.2); Immature Granulocytes % 0.9 %; Mean Corpuscular HGB Conc 34.6 g/dL (31.8-35.4); Mean Corpuscular Hemoglobin 32.2 pg (27.0-31.2); Mean Corpuscular Volume 93.0 fl (81-99); Nucleated Red Blood Cells % 0 %; Platelet Count 264 K/mm3 (142-424); Red Blood Count 4.54 M/mm3 (4.20-5.40); Red Cell Distribution Width-SD 42.0 fL; White Blood Count 10.0 K/mm3 (4.8-10.8)
[2025-06-03 07:34] LABS: Thyroid Stimulating Hormone 24.20 uIU/mL (0.465-4.68)
[2025-06-03 07:53] VITALS: BP 123/61; PULSE 80; RESP 16; TEMP 36.4; O2SAT 97
[2025-06-03] MEDS: PANTOPRAZOLE 40MG TABLET 40 MG PO (08:27)
[2025-06-03] MEDS: LEVOTHYROXINE 88MCG (0.088MG) TAB 88 MCG PO (08:28)
[2025-06-03] MEDS: DOCUSATE SODIUM 250MG CAPSULE 250 MG PO (08:29)
[2025-06-03] MEDS: HEPARIN SODIUM 5,000 UNIT/ML VIAL 5000 UNIT SUBCUT (08:29)
[2025-06-03] MEDS: GABAPENTIN 300MG CAPSULE 300 MG PO ×2 (08:31→13:07)
[2025-06-03 08:36] LABS: Free T4 (Free Thyroxine) 1.09 ng/dl (0.78-2.19)
--- NOTE | 2025-06-03 09:01 | HMH.PHAAMS2 ---
- Antimicrobial Stewardship Review culture & sensitivity review Stewardship interventions: culture & sensitivity review, reviewed - no change Comments: cultures negative, zosyn empirically for elevated wbc, will follow-up today on rounds
[2025-06-03] MEDS: humaLOG 100 UNITS/ML 10ML VIAL (SSI) SUBCUT (11:13)
--- NOTE | 2025-06-03 11:22 | EXP.DC.SUM ---
General Admission date:: 06/01/25 HPI HPI HPI: This is a 79-year-old female who has a past medical history significant for chronic abdominal pain, mhe-[id number] diabetes, and chronic nausea who presents to the emergency room with a chief complaint of nonbilious/bloody emesis. Due to patient's symptoms, she presented to the emergency room for evaluation. While in emergency room, CT scan of the head revealed chronic changes in the brain but no acute intracranial abnormality. CT scan of the abdomen and pelvis revealed no acute abnormalities of the abdomen and pelvis. Patient appeared to be confused still and dehydrated with acute kidney injury. As a result, hospital medicine was consulted for further management. During my evaluation of the patient, patient states over the last 72 hours she has been having multiple episodes of nonbilious/nonbloody emesis she reports no bowel movement for the past 3 days but is having positive flatus. Son did notice some intermittent confusion. He reports that she takes chronic opioids., Patient lives alone. She is currently denying chest pain, lightheadedness, dizziness, upper or lower extremity weakness, lateral gaze deficit, slurred speech, deviation in tongue, shortness of breath, dyspnea,. Patient states she is hungry and is wanting to eat. Additional pertinent labs obtained include a white blood cell count of 13.2, red blood cell count of 5.57, hemoglobin 17.6, hematocrit 51.7, carbon oxide of 18, BUN 40, creatinine 1.20, GFR 43, blood glucose 186, calcium of 10.4, AST of 49, total protein 8.9, and albumin 5.3. Hospital Course Hospital Course Hospital Course: Malu Nolasco is a 79-year-old female who presented with refractory nausea/vomiting and was admitted for the same, acute metabolic encephalopathy. #Acute metabolic encephalopathy, resolved #Nausea/vomiting, resolved #GERD #History of PUD #Leukocytosis #Dehydration, hemoconcentration, BEAU ? Patient presented with refractory nausea/vomiting and some abdominal pain over the past few days, CT abdomen/pelvis without acute findings. ? Patient received IV fluid resuscitation, Zofran, and Protonix overnight with resolution of symptoms today. Tolerating p.o. intake without issues. ? Initially had hemoconcentration, improved today. No signs of blood loss anemia. Creatinine improved from 1.2-0.80 today. ? However, WBC bumped to 22.7 during hospital course, monitored and additional day without focal infectious findings or symptoms. Likely reactive at this time. Initially treated with Zosyn, no indication to continue at this time. ? Patient states she has a history of PUD, had been started on omeprazole 40 mg twice daily. However, she has not been taking it for the past few days. She states whenever she does not take her PPI she has nausea/vomiting. ? Given stability of symptoms, will have patient follow-up GI on an outpatient basis. She states she has had a recent EGD which did not show acute findings. ? Continue omeprazole 40 mg twice daily. Discontinued home meloxicam 15 mg daily. #Type 2 diabetes ? A1c 6.6%, continue home metformin. Continue home gabapentin 30 mg 3 times daily. #Hypothyroidism ?Continue levothyroxine 88 mcg. TSH elevated to 25, free T4 normal. Patient states she has not been taking her levothyroxine, strongly encourage patient to do so. She is agreeable to this plan. #Anxiety/depression ? Continue bupropion 100 mg 3 times daily, temazepam 30 mg as needed nightly. Exam Data for Last 24 hours Vital signs and Labs for Last 24 Hours: Temp Pulse Resp BP Pulse Ox O2 Del Method 97.6 F 80 16 123/61 97 Room Air 06/03/25 07:53 06/03/25 07:53 06/03/25 07:53 06/03/25 07:53 06/03/25 07:53 06/03/25 11:00 Laboratory Results - last 24 hr 06/02/25 11:48: POC Glucose 137 H 06/02/25 13:18: Chlamy pneumoniae PCR Not detected, Adenovirus (PCR) Not detected, B. pertussis DNA (PCR) Not detected, Coronavirus OC43 (PCR) Not detected, Coronavirus HKU1 (PCR) Not detected, Coronavirus 229E (PCR) Not detected, SARS-CoV-2 (PCR) Not detected, Coronavirus NL63 (PCR) Not detected, Human Metapneumovir PCR Not detected, Influenza A (H1) PCR Not detected, Influ A (H1N1/09) PCR Not detected, Influenza A (H3) PCR Not detected, Influenza Type A (PCR) Not detected, Influenza Type B (PCR) Not detected, M. pneumoniae (PCR) Not detected, Parainfluenza 1 (PCR) Not detected, Parainfluenza 2 (PCR) Not detected, Parainfluenza 3 (PCR) Not detected, Parainfluenza 4 (PCR) Not detected, RSV (PCR) Not detected, Entero/Rhino (PCR) Not detected 06/02/25 16:11: POC Glucose 138 H 06/03/25 05:32: POC Glucose 138 H 06/03/25 05:55: Sodium 140, Potassium 4.1, Chloride 105, Carbon Dioxide 25, Anion Gap 14.1, BUN 23 H D, Creatinine 0.90, Estimated Creat Clear 47, Estimated GFR 61, Est GFR ( Amer) 73, Glucose 120 H, Hemoglobin A1c 6.6 H, Calcium 9.4, TSH 24.20 H, Free T4 1.09 06/03/25 07:05: WBC 10.0 D, RBC 4.54, Hgb 14.6, Hct 42.2, MCV 93.0, MCH 32.2 H, MCHC 34.6, RDW 12.3, Plt Count 264, MPV 10.0, Neut % (Auto) 44.2, Lymph % (Auto) 42.6, Grainger % (Auto) 10.6 H, Eos % (Auto) 1.0, Baso % (Auto) 0.7, Neut # (Auto) 4.4, Lymph # (Auto) 4.2, Grainger # (Auto) 1.1 H, Eos # (Auto) 0.1, Baso # (Auto) 0.1 I & O for Last 24 hours: Intake & Output 05/31/25 06/01/25 06/02/25 06/03/25 23:59 23:59 23:59 23:59 Intake Total 1000 / 1100 2606.667 / 3046.667 900 / 900 Output Total 0 / 0 0 / 0 Balance 1000 / 1100 2606.667 / 3046.667 900 / 900 Weight 77.111 kg 66.451 kg 64.773 kg Microbiology Reports for the Last 24 Hours: Microbiology 06/02/25 08:20 Blood Blood Culture - Preliminary NO GROWTH AFTER 24 HOURS 06/02/25 08:25 Blood Blood Culture - Preliminary NO GROWTH AFTER 24 HOURS Constitutional Constitutional: no acute distress and chronically ill appearing *Routine HEENT Exam Head: Present normocephalic Eye: Present EOMI and PERRL ENT: Present mucous membranes moist *Routine Neck Exam Neck: Present supple; Absent lymphadenopathy *Routine Respiratory Exam Respiratory: Present CTA bilaterally *Routine Cardiovascular Exam Cardiovascular: Present RRR *Routine Abdominal Exam Abdominal: Present soft and normoactive bowel sounds; Absent tenderness *Routine Extremities Exam Extremities: Absent cyanosis, clubbing or edema *Routine Skin Exam Skin: Present warm; Absent rash *Routine Neurological Exam Neurological: Present alert and oriented X3 Results Data Completed and Pending Labs on day of discharge: Labs from last 24 hours 06/03/25 06/03/25 06/03/25 07:05 05:55 05:32 WBC 10.0 D RBC 4.54 Hgb 14.6 Hct 42.2 MCV 93.0 MCH 32.2 H MCHC 34.6 RDW 12.3 Plt Count 264 MPV 10.0 Neut % (Auto) 44.2 Lymph % (Auto) 42.6 Grainger % (Auto) 10.6 H Eos % (Auto) 1.0 Baso % (Auto) 0.7 Neut # (Auto) 4.4 Lymph # (Auto) 4.2 Grainger # (Auto) 1.1 H Eos # (Auto) 0.1 Baso # (Auto) 0.1 Sodium 140 Potassium 4.1 Chloride 105 Carbon Dioxide 25 Anion Gap 14.1 BUN 23 H D Creatinine 0.90 Estimated Creat Clear 47 Estimated GFR 61 Est GFR ( Amer) 73 Glucose 120 H POC Glucose 138 H Hemoglobin A1c 6.6 H Calcium 9.4 TSH 24.20 H Free T4 1.09 Chlamy pneumoniae PCR Adenovirus (PCR) B. pertussis DNA (PCR) Coronavirus OC43 (PCR) Coronavirus HKU1 (PCR) Coronavirus 229E (PCR) SARS-CoV-2 (PCR) Coronavirus NL63 (PCR) Human Metapneumovir PCR Influenza A (H1) PCR Influ A (H1N1/09) PCR Influenza A (H3) PCR Influenza Type A (PCR) Influenza Type B (PCR) M. pneumoniae (PCR) Parainfluenza 1 (PCR) Parainfluenza 2 (PCR) Parainfluenza 3 (PCR) Parainfluenza 4 (PCR) RSV (PCR) Entero/Rhino (PCR) 06/02/25 06/02/25 06/02/25 16:11 13:18 11:48 WBC RBC Hgb Hct MCV MCH MCHC RDW Plt Count MPV Neut % (Auto) Lymph % (Auto) Grainger % (Auto) Eos % (Auto) Baso % (Auto) Neut # (Auto) Lymph # (Auto) Grainger # (Auto) Eos # (Auto) Baso # (Auto) Sodium Potassium Chloride Carbon Dioxide Anion Gap BUN Creatinine Estimated Creat Clear Estimated GFR Est GFR ( Amer) Glucose POC Glucose 138 H 137 H Hemoglobin A1c Calcium TSH Free T4 Chlamy pneumoniae PCR Not detected Adenovirus (PCR) Not detected B. pertussis DNA (PCR) Not detected Coronavirus OC43 (PCR) Not detected Coronavirus HKU1 (PCR) Not detected Coronavirus 229E (PCR) Not detected SARS-CoV-2 (PCR) Not detected Coronavirus NL63 (PCR) Not detected Human Metapneumovir PCR Not detected Influenza A (H1) PCR Not detected Influ A (H1N1/09) PCR Not detected Influenza A (H3) PCR Not detected Influenza Type A (PCR) Not detected Influenza Type B (PCR) Not detected M. pneumoniae (PCR) Not detected Parainfluenza 1 (PCR) Not detected Parainfluenza 2 (PCR) Not detected Parainfluenza 3 (PCR) Not detected Parainfluenza 4 (PCR) Not detected RSV (PCR) Not detected Entero/Rhino (PCR) Not detected Preliminary micro results at discharge 06/02/25 08:20 Blood Culture - Preliminary Blood NO GROWTH AFTER 24 HOURS 06/02/25 08:25 Blood Culture - Preliminary Blood NO GROWTH AFTER 24 HOURS DS: Diagnosis Discharge Diagnosis (1) Dehydration: Status: Acute Code(s): E86.0 - Dehydration Meds Home Medications and Allergies Home Medications ?Medication ?Instructions ?Recorded ?Confirmed ?Type cholecalciferol (vitamin D3) 10 50,000 unit PO WEEKLY Supplement 04/13/20 06/05/25 History mcg (400 unit) capsule temazepam 30 mg capsule 30 mg PO HS 06/04/21 06/05/25 History bupropion HCl 100 mg tablet 100 mg PO TID 12/09/22 06/05/25 History metformin 500 mg tablet 500 mg PO DAILY 12/09/22 06/05/25 History oxybutynin chloride 10 mg 10 mg PO DAILY 06/02/25 06/05/25 History tablet,extended release 24 hr levothyroxine 88 mcg tablet 88 mcg PO DAILY 30 days #30 tabs 06/03/25 06/05/25 Rx furosemide 20 mg tablet 20 mg PO DAILYP leg edema 06/05/25 06/05/25 History omeprazole 40 mg capsule,delayed 40 mg PO BID 06/05/25 06/05/25 History release ondansetron 4 mg disintegrating 4 mg PO Q6HP PRN nausea and 06/05/25 06/05/25 History tablet vomiting meloxicam 15 mg tablet 15 mg PO DAILY 06/06/25 06/06/25 History potassium chloride 20 mEq 20 meq PO DAILY 06/06/25 06/06/25 History tablet,extended release aspirin 81 mg tablet,delayed 81 mg PO DAILY 30 days #30 tabs 06/08/25 Rx release tizanidine 4 mg tablet 4 mg PO Q8H PRN muscle cramps 30 06/08/25 06/06/25 Rx days #0 tabs vancomycin 50 mg/mL oral solution 125 mg (2.5 mL) PO QID 9 days #90 06/08/25 Rx (Firvanq) mL New Prescriptions to Start Prescriptions: levothyroxine Marcellus Garcia Allergies Allergy/AdvReac Type Severity Reaction Status Date / Time No Known Allergies Allergy Verified 06/04/25 14:30 Discharge Plan Disposition Patient Disposition: Home, Self-Care Condition: Fair Follow up Plan Follow up with: Kit Virgen MD [Primary Care Provider, Medical] - 06/10/25 10:30 am Prescriptions/Medication Reconciliation: Continued cholecalciferol (vitamin D3) 10 MCG capsule 50,000 unit PO WEEKLY temazepam 30 MG capsule 30 mg PO HS oxybutynin chloride 10 mg tablet extended release 24hr 10 mg PO DAILY levothyroxine 88 mcg tablet 88 mcg PO DAILY 30 Days Qty: 30 0RF Rx Instructions: Take on empty stomach in the morning. metformin 500 mg tablet 500 mg PO DAILY bupropion HCl 100 mg tablet 100 mg PO TID Discontinued omeprazole 40 MG capsule,delayed release(DR/EC) 40 mg PO BID hydrocodone-acetaminophen 5-325 mg tablet 1 tab PO Q6H PRN (Reason: Pain, Severe) meloxicam 15 mg tablet 15 mg PO DAILY furosemide 20 mg tablet 20 mg PO DAILY No Action omeprazole 40 MG capsule,delayed release(DR/EC) 40 mg PO BID Rx Instructions: Take on empty stomach. furosemide 20 mg tablet 20 mg PO DAILYP ondansetron 4 mg tablet,disintegrating 4 mg PO Q6HP PRN (Reason: nausea and vomiting) meloxicam 15 mg tablet 15 mg PO DAILY potassium chloride 20 mEq Tablet Extended Release 20 meq PO DAILY vancomycin [Firvanq] 50 mg/mL Recon Soln 125 mg PO QID 9 Days Qty: 90 0RF Rx Instructions: send home bottle aspirin 81 mg Tablet,Delayed Release (Dr/Ec) 81 mg PO DAILY 30 Days Qty: 30 0RF tizanidine 4 mg Tablet 4 mg PO Q8H PRN (Reason: muscle cramps) 30 Days Qty: 0 0RF Problem Reconciliation Problems Reviewed?: Yes Patient Discharge Instructions Patient Instructions: Acute Kidney Injury, DI for Abdominal Pain in Adults, DI for Encephalopathy, DI for Leukocytosis Print Language: Lithuanian Providers Primary Care Provider: Kit Virgen Admit Provider: Marcellus Garcia Attending Provider: Marcellus Garcia
[2025-06-03 11:29] LABS: POC Glucose,Bedside 177 gm/dL (70-110)
--- NOTE | 2025-06-03 11:33 | PC.NURSE ---
Per request of pt, Deshawn, son of pt was notified that she will DC today and will need a ride home.
--- NOTE | 2025-06-03 11:47 | SW/DCPLANNER ---
Addendum entered by Roshni Stanford 06/04/25 08:22: [facility] is not able to accept patient due to not being in network with patient's insurance. [facility] is not able to accept patient due to not being in network with the patient's insuracne. Kaylee Mckenzie Addendum entered by Roshni Stanford 06/03/25 14:01: I have been waiting for a response for [facility] and called and they are unsure if they can take the patient's insurance. I faxed patient's information to [facility]. I will update once i hear back. Kaylee Mckenzie Original Note: Meeta Elia spoke with patient regarding needs once she is medically stable and ready for discharge if she would be interested in home health services. Patient stated that she is interested in home health and that she does not have a preference in what agency her information is sent to. I faxed patient's information to [facility] and will update once i hear if they can accept patient or not. Kaylee Mckenzie
[2025-06-03 14:16] LABS: Acinetobacter calcoaceticus-ba Not Detected; Bacteroides fragilis Not Detected; Candida auris Not Detected; Candida glabrata Not Detected; Enterobacterales Not Detected; Enterococcus faecalis Not Detected; Enterococcus faecium Not Detected; Klebsiella aerogenes Not Detected; Klebsiella pneumoniae grp Not Detected; Proteus spp. Not Detected; Salmonella spp. Not Detected; Serratia marcescens Not Detected; Staphylococcus epidermidis Detected; Staphylococcus lugdunensis Not Detected; Staphylococcus spp. Detected; Stenotrophomonas maltophilia Not Detected; Streptococcus agalactiae(GrpB) Not Detected; Streptococcus pyogenes Group A Not Detected; Streptococcus spp. Not Detected; mecA/C Not Detected
--- NOTE | 2025-06-04 14:08 | SW/DCPLANNER ---
Spoke with patient on the phone. Patient stated that she is doing good. Kaushik seemed a little confused while on the phone. Patient stated that she is aware of her upcoming appointments. 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 Patient stated that she has no way of getting to get her some food stamps. I gave the patient the number to [employer] that services [employer]. Patient stated that she has no concerns or questions at this time. Kaylee Mckenzie
== END 2025-06-03 13:50 | disposition home or self-care (01) ==
LOC: ER 22:33 → 2ND 22:33
PROVIDERS: Nurse Practitioner Family; Admitting Provider Student in an Organized Health Care Education/Training Program; Emergency Provider Emergency Medicine; PCP Family Medicine; Visit Provider Student in an Organized Health Care Education/Training Program
DX: N17.9 Acute kidney failure, unspecified (principal); G93.40 Encephalopathy, unspecified; D75.1 Secondary polycythemia; E87.20 Acidosis, unspecified; D72.829 Elevated white blood cell count, unspecified; K21.9 Gastro-esophageal reflux disease without esophagitis; E03.9 Hypothyroidism, unspecified; Z79.899 Other long term (current) drug therapy; Z81.1 Family history of alcohol abuse and dependence; Z79.84 Long term (current) use of oral hypoglycemic drugs; F41.9 Anxiety disorder, unspecified; F32.A Depression, unspecified; E11.65 Type 2 diabetes mellitus with hyperglycemia
CPT/HCPCS: 0223U; 36415; 70450; 71045; 74177; 80048; 80053; 81001; 82140; 82962; 83036; 83690; 83735; 84145; 84439; 84443; 84484; 85007; 85025; 85027; 87040; 87077; 87154; 87186; 93005; 99285; G0378; J0131; J1644; J2405; J2543; J2550; J7120; Q9967

== ENCOUNTER 2025-06-05 11:03 | Observation (INO) | payer MEDICARE, MEDICAID, SELFPAY ==
[2025-06-05] VITALS (11 sets, daily range): BP systolic 153–192; BP diastolic 69–106; PULSE 62–98; RESP 16–19; TEMP 36.5–36.8; O2SAT 95–99; BMI 23.0; BMI 22.7
--- OUTSIDE RECORDS SUMMARY | 2025-06-05 11:10 | XMS_ITS ---
Author Organization Unknown Problems Date Problem Result OnSetDate [id number] SnomedCode Severity Cu stom 02/23/2025 00:00:00 Neuropathy G62.9
--- NOTE | 2025-06-05 11:16 | PC.NURSE ---
FSBS 138 at this time
--- NOTE | 2025-06-05 11:26 | CT_ITS ---
PROCEDURE INFORMATION: Exam: CTA Neck With Contrast Exam date and time: 06/05/2025 12:05 PM Age: 79 years old Clinical indication: Other: AMS TECHNIQUE: Imaging protocol: Computed tomographic angiography of the neck with contrast. Exam focused on the cervical segments of the vasculature. 3D rendering (Not supervised by radiologist): MIP and/or 3D reconstructed images were created by the technologist. Radiation optimization: All CT scans at this facility use at least one of these dose optimization techniques: automated exposure control; mA and/or kV adjustment per patient size (includes targeted exams where dose is matched to clinical indication); or iterative reconstruction. Contrast material: ISO 370; Contrast volume: 80 ml; Contrast route: INTRAVENOUS (IV); COMPARISON: CT ANGIO NECK 06/05/2025 12:05 PM FINDINGS: Right common carotid artery: No stenosis. No dissection or occlusion. Right internal carotid artery: No stenosis of the extracranial segment. No dissection or occlusion. Right external carotid artery: No occlusion or stenosis of the origin. Left common carotid artery: No stenosis. No dissection or occlusion. Left internal carotid artery: No stenosis of the extracranial segment. No dissection or occlusion. Left external carotid artery: No occlusion or stenosis of the origin. Right vertebral artery: No stenosis. No dissection or occlusion. Left vertebral artery: No stenosis. No dissection or occlusion. Thyroid: Small barely perceptible thyroid. Soft tissues: Few suspected skin tags the level of the thyroid cartilage on the left. No significant soft tissue swelling. Bones/joints: No acute fracture. IMPRESSION: No hemodynamically significant stenosis or occlusion. REFERENCES: NASCET CRITERIA. The degree of stenosis in the cervical segment of the internal carotid artery is based on NASCET criteria. Normal is no stenosis. Mild is less than 50% stenosis. Moderate is 50-69% stenosis. Severe is 70% to 99% stenosis. Total occlusion is no detectable patent lumen.
--- NOTE | 2025-06-05 11:26 | CT_ITS ---
PROCEDURE INFORMATION: Exam: CTA Head With Contrast, Arteriography Exam date and time: 06/05/2025 12:05 PM Age: 79 years old Clinical indication: Other: AMS TECHNIQUE: Imaging protocol: Computed tomographic angiography of the head with contrast. Exam focused on the arteries. 3D rendering (Not supervised by radiologist): MIP and/or 3D reconstructed images were created by the technologist. Radiation optimization: All CT scans at this facility use at least one of these dose optimization techniques: automated exposure control; mA and/or kV adjustment per patient size (includes targeted exams where dose is matched to clinical indication); or iterative reconstruction. Contrast material: ISO 370; Contrast volume: 80 ml; Contrast route: INTRAVENOUS (IV); COMPARISON: CT HEAD/BRAIN WO CON 06/05/2025 12:03 PM FINDINGS: ANTERIOR CIRCULATION: Right internal carotid artery: Intracranial segment is patent with no significant stenosis. No aneurysm. Right middle cerebral artery: No occlusion or significant stenosis. No aneurysm. Right anterior cerebral artery: No occlusion or significant stenosis. No aneurysm. Left internal carotid artery: Intracranial segment is patent with no significant stenosis. No aneurysm. Left middle cerebral artery: No occlusion or significant stenosis. No aneurysm. Left anterior cerebral artery: No occlusion or significant stenosis. No aneurysm. POSTERIOR CIRCULATION: Right vertebral artery: No occlusion or significant stenosis. No aneurysm. Left vertebral artery: No occlusion or significant stenosis. No aneurysm. Basilar artery: No occlusion or significant stenosis. No aneurysm. Right posterior cerebral artery: No occlusion or significant stenosis. No aneurysm. Left posterior cerebral artery: No occlusion or significant stenosis. No aneurysm. Other arteries: Persistent circulation on the left. Brain: No abnormal enhancement Cerebral ventricles: No ventriculomegaly. Bones/joints: Unremarkable. No acute fracture. Soft tissues: Unremarkable. IMPRESSION: No large vessel stenosis or occlusion.
--- NOTE | 2025-06-05 11:26 | CT_ITS ---
PROCEDURE INFORMATION: Exam: CT Head Without Contrast Exam date and time: 06/05/2025 12:03 PM Age: 79 years old Clinical indication: Altered mental status/memory loss; Additional info: AMS TECHNIQUE: Imaging protocol: Computed tomography of the head without contrast. Radiation optimization: All CT scans at this facility use at least one of these dose optimization techniques: automated exposure control; mA and/or kV adjustment per patient size (includes targeted exams where dose is matched to clinical indication); or iterative reconstruction. COMPARISON: CT HEAD/BRAIN WO CON 06/01/2025 9:05 PM FINDINGS: Brain: Mild chronic age related changes, stable. No hemorrhage. No mass effect. Cerebral ventricles: No ventriculomegaly. Paranasal sinuses: Mild ethmoidal air cell disease on the right. Mastoid air cells: Visualized mastoid air cells are well aerated. Bones: Unremarkable. No acute fracture. Soft tissues: Unremarkable. IMPRESSION: No acute intracranial abnormality.
--- NOTE | 2025-06-05 11:26 | XR_ITS ---
PROCEDURE INFORMATION: Exam: XR Chest Exam date and time: 06/05/2025 11:57 AM Age: 79 years old Clinical indication: Dyspnea TECHNIQUE: Imaging protocol: Radiologic exam of the chest. Views: 1 view. COMPARISON: CR XR CHEST PORTABLE 06/02/2025 8:55 AM FINDINGS: Lungs: Unremarkable. No consolidation. Pleural spaces: Unremarkable. No pleural effusion. No pneumothorax. Heart/Mediastinum: Unremarkable. No cardiomegaly. Bones/joints: Unremarkable. IMPRESSION: No acute findings.
--- NOTE | 2025-06-05 11:30 | [facility].EDGENADL ---
Discharge Plan Disposition Patient Disposition: Admitted Prescriptions Prescriptions: No Action cholecalciferol (vitamin D3) 10 MCG capsule 50,000 unit PO WEEKLY temazepam 30 MG capsule 30 mg PO HS oxybutynin chloride 10 mg tablet extended release 24hr 10 mg PO DAILY promethazine 25 mg tablet 25 mg PO BID PRN (Reason: Nausea/Vomiting) gabapentin 300 mg capsule 300 mg PO TID ondansetron 4 mg tablet,disintegrating 4 mg PO Q6H PRN (Reason: nausea and vomiting) Qty: 14 0RF levothyroxine 88 mcg tablet 88 mcg PO DAILY 30 Days Qty: 30 0RF Rx Instructions: Take on empty stomach in the morning. furosemide 20 mg tablet 20 mg PO DAILY PRN (Reason: leg edema) 30 Days Qty: 0 0RF omeprazole 40 MG capsule,delayed release(DR/EC) 40 mg PO BID 30 Days Qty: 60 0RF Rx Instructions: Take on empty stomach. metformin 500 mg tablet 500 mg PO DAILY bupropion HCl 100 mg tablet 100 mg PO TID Referrals Follow up/Referrals: Kit Virgen MD [Primary Care Provider, Medical] - See instructions Clinical Impressions Clinical Impression: Acute encephalopathy Instructions Patient Instructions: DI for Altered Mental Status Print Language Print Language: Albanian Discharge ED Provider: Deion Morrison General Adult HPI General Chief complaint: Altered Mental Status Stated complaint: confusion abd pain Time Seen by Provider: 06/05/25 11:13 Mode of Arrival: Wheelchair Source of Information: Patient and Relative Description of Symptoms (Recalled from ER Triage Doc. by RN): pt presents to ED with son. pt unwilling to answer questions from nurse at this time. pts son able to answer questions. pt was recent admit for abdominal pain and confusion that has gotten worse since pt was discharged from hosptial. son reports that pt has not been taking hearburn medication that pt was discharged with. son concerned that pt not getting better History of Present Illness HPI narrative: Patient is a 79-year-old female brought in by son today for worsening mental status. She was admitted just a few days ago presumptively with medication induced encephalopathy from Phenergan and opiates. She has not had any of these in over 5 days according to her son. She did get somewhat better and went home but has significantly worsened since that time. Is profoundly altered off of her baseline just 2 weeks ago she was at home walking talking acting normally taking care of dogs and this is a dramatic change from her baseline according to her son. She had a broad workup that was unremarkable medically in the hospital no lumbar puncture or MRI were performed at that time. She has had no other focal neurologic symptoms other than just altered mental status. Related Data Home Medications ?Medication ?Instructions ?Recorded ?Confirmed cholecalciferol (vitamin D3) 10 50,000 unit PO WEEKLY Supplement 04/13/20 06/04/25 mcg (400 unit) capsule temazepam 30 mg capsule 30 mg PO HS Anxiety 06/04/21 06/04/25 bupropion HCl 100 mg tablet 100 mg PO TID Depression 12/09/22 06/04/25 metformin 500 mg tablet 500 mg PO DAILY Diabetes 12/09/22 06/04/25 gabapentin 300 mg capsule 300 mg PO TID 06/02/25 06/04/25 oxybutynin chloride 10 mg 10 mg PO DAILY 06/02/25 06/04/25 tablet,extended release 24 hr promethazine 25 mg tablet 25 mg PO BID PRN Nausea/Vomiting 06/02/25 06/04/25 Previous Rx's ?Medication ?Instructions ?Recorded furosemide 20 mg tablet 20 mg PO DAILY PRN leg edema 30 06/03/25 days #0 tabs levothyroxine 88 mcg tablet 88 mcg PO DAILY 30 days #30 tabs 06/03/25 omeprazole 40 mg capsule,delayed 40 mg PO BID Reflux/Acid reflux 30 06/03/25 release days #60 caps ondansetron 4 mg disintegrating 4 mg PO Q6H PRN nausea and 06/03/25 tablet vomiting #14 tabs Allergies Allergy/AdvReac Type Severity Reaction Status Date / Time No Known Allergies Allergy Verified 06/04/25 14:30 [facility] Disclaimer: The information contained in this section may have been updated after the patient was seen, as this information can be updated by other users. Medical History (Updated 06/05/25 @ 11:35 by Deion Morrison MD) Hypothyroid GERD (gastroesophageal reflux disease) Diabetes Surgical History (Updated 06/04/25 @ 14:29 by Matt Pete) Hx of foot surgery History of delivery History of intestinal surgery History of appendectomy Social History Smoking Status: Never smoker second hand exposure: No alcohol intake: never substance use type: denies use current occupational status: retired Travel in the last 8 weeks?: None household members: spouse housing: house current occupational exposures/hazards: No caffeine: Yes Have you lived/traveled outside [place] in past 30 days?: No Contact w/someone who lives/traveled outside US past 30 days?: No Exposure to someone with infectious disease in past 14 days?: No Do you have a fever (greater than 100.4 F or 38 C)?: No Have you tested positive for COVID-19?: No Exposed to someone with COVID-19 in past 14 days?: No Do you have a sore throat?: No Do you have a cough?: No Do you have any weakness?: No Do you have any diarrhea?: No Are you experiencing any unusual bleeding?: No Do you have any muscle aches/pain?: No Do you have any abdominal pain?: No Are you experiencing loss of taste or smell?: No Other Medical History Have you received the Flu Vaccine for this season: No Have you received the Pneumonia Vaccine: No ROS Obtained: Yes All systems reviewed & no additional complaints except as documented Physical Exam General General appearance: alert Respiratory Respiratory exam: Present normal lung sounds bilaterally; Absent respiratory distress Cardiovascular Cardiovascular exam: Present regular rate Abdominal Exam Abdominal exam: Present soft; Absent distention or tenderness Neurological Exam Neurological exam: Present alert and other (Patient will not verbalize anything to me is not following commands but is moving all of her extremities she is alert and looking around but is profoundly confused); Absent oriented X3 Medical Decision Making Medical Records Screening: Per USPSTF and CDC recommendations, given the prevalence of disease in our region, it is our hospital?s policy to screen for HIV and viral Hepatitis for all patients aged 18 and over and those with ongoing risk factors. [place]on Inquiry Pt receiving controlled substance: No Vital Signs: 06/05/25 11:13 06/05/25 11:30 06/05/25 11:45 Temperature 98.2 F Temperature Source Oral Pulse Rate 70 71 Pulse Rate [Left Radial] 97 H Respiratory Rate 19 Blood Pressure 168/69 H Blood Pressure [Right Arm] 192/85 H Blood Pressure Mean 102 Blood Pressure Mean [Right Arm] 120 02 Sat by Pulse Oximetry 96 96 97 Oxygen Delivery Method Room Air 06/05/25 12:30 06/05/25 12:45 Temperature Temperature Source Pulse Rate 81 75 Pulse Rate [Left Radial] Respiratory Rate Blood Pressure 185/87 H Blood Pressure [Right Arm] Blood Pressure Mean Blood Pressure Mean [Right Arm] 02 Sat by Pulse Oximetry 98 99 Oxygen Delivery Method Room Air Lab Data Lab results reviewed: Yes I reviewed the patient's lab results. Lab Results 06/05/25 11:17: WBC 10.8, RBC 4.80, Hgb 15.5, Hct 44.7, MCV 93.1, MCH 32.3 H, MCHC 34.7, RDW 12.1, Plt Count 313, MPV 10.5 H, Neut % (Auto) 63.1, Lymph % (Auto) 28.5, Giles % (Auto) 6.7, Eos % (Auto) 0.0 L, Baso % (Auto) 0.6, Neut # (Auto) 6.8, Lymph # (Auto) 3.1, Giles # (Auto) 0.7, Eos # (Auto) 0.0, Baso # (Auto) 0.1, PT 11.4, INR 1.03, Sodium 135 L, Potassium 4.0, Chloride 100, Carbon Dioxide 24, Anion Gap 15.0, BUN 31 H D, Creatinine 0.80, Estimated Creat Clear 47, Estimated GFR 69, Est GFR ( Amer) 84, Glucose 141 H, Calcium 10.4 H, Total Bilirubin 0.8, AST 53 H, ALT 64, Alkaline Phosphatase 89, Troponin I < 0.01, Total Protein 8.9 H, Albumin 5.2 H, Globulin 3.7 H, Albumin/Globulin Ratio 1.4, TSH 25.70 H, Plasma/Serum Alcohol < 10 06/05/25 11:37: Urine Color Yellow, Urine Appearance Clear, Urine pH 6.0, Ur Specific Elba >= 1.030, Urine Protein 1+ A, Urine Glucose (UA) Negative, Urine Ketones 3+, Urine Blood Negative, Urine Nitrate Negative, Urine Bilirubin 1+ A, Urine Urobilinogen 0.2, Ur Leukocyte Esterase Negative, Urine RBC None, Urine WBC None, Ur Squamous Epith Cells None, Urine Bacteria None, Chlamy pneumoniae PCR Not detected, Adenovirus (PCR) Not detected, B. pertussis DNA (PCR) Not detected, Coronavirus OC43 (PCR) Not detected, Coronavirus HKU1 (PCR) Not detected, Coronavirus 229E (PCR) Not detected, SARS-CoV-2 (PCR) Not detected, Coronavirus NL63 (PCR) Not detected, Human Metapneumovir PCR Not detected, Influenza A (H1) PCR Not detected, Influ A (H1N1/09) PCR Not detected, Influenza A (H3) PCR Not detected, Influenza Type A (PCR) Not detected, Influenza Type B (PCR) Not detected, M. pneumoniae (PCR) Not detected, Parainfluenza 1 (PCR) Not detected, Parainfluenza 2 (PCR) Not detected, Parainfluenza 3 (PCR) Not detected, Parainfluenza 4 (PCR) Not detected, RSV (PCR) Not detected, Entero/Rhino (PCR) Not detected 06/05/25 11:40: VBG pH 7.34, VBG pCO2 43.9, VBG pO2 36.3, VBG HCO3 23.2, VBG Total CO2 24.5, VBG O2 Saturation 68.4, VBG Base Excess -2.6 L, VBG Lactic Acid 2.3 H 06/05/25 11:50: Ammonia < 9 L 06/05/25 11:17 06/05/25 11:17 Orders (Tests/Meds): ED MEDICATIONS Generic Name Dose Route Start Last Admin Trade Name Freq PRN Reason Stop Dose Admin Ceftriaxone Sodium 2 gm/ 100 mls @ 200 mls/hr 06/05/25 13:18 Sodium Chloride IV 06/05/25 13:47 ONCE ONE Ampicillin Sodium 2 gm/ Sodium 100 mls @ 200 mls/hr 06/05/25 13:19 Chloride IV 06/05/25 13:48 ONCE ONE Vancomycin/PEG/NADA/Lysine/Water 1.25 gm in 250 mls @ 125 mls/hr 06/05/25 13:30 Vancomycin 1.25gm/250ml (Peg) Premix IV 06/05/25 15:29 ONCE ONE Discontinued Medications Generic Name Dose Route Start Last Admin Trade Name Freq PRN Reason Stop Dose Admin Lactated Ringer's 1,000 mls @ 999 mls/hr 06/05/25 11:30 06/05/25 11:50 Lactated Ringer's 1000 Ml Bag IV 06/05/25 12:30 999 mls/hr .Q1H1M ANNIE Administration Acyclovir Sodium 600 mg/ 250 mls @ 250 mls/hr 06/05/25 13:19 Sodium Chloride IV 06/05/25 13:20 ONCE ONE Iopamidol 80 ml 06/05/25 12:12 06/05/25 12:14 Iopamidol-370 (76%);100ml Bottle IV 06/05/25 12:13 80 ml ONCE ONE Administration Miscellaneous 1 each 06/05/25 13:30 Vancomycin Consult Request NOTAPPLIC 07/05/25 13:29 [facility] Sodium Chloride 10 ml 06/05/25 12:12 06/05/25 12:14 Sodium Chloride 0.9% 10ml Syr (Rad Only) IV 07/05/25 12:11 10 ml NEEDED PRN Administration Maintain IV Site Sodium Chloride 50 ml 06/05/25 12:12 06/05/25 12:14 0.9 % Sodium Chloride 50 Ml Vial IV 06/05/25 12:13 50 ml ONCE ONE Administration ORDERS Category Date Time Status CT angio head Stat Cat Scan 06/05/25 11:[address] angio neck Stat Cat Scan 06/05/25 11:[address] head/brain wo con Stat Cat Scan 06/05/25 11:26 Completed CXR --portable [XR chest portable] Stat Exams 06/05/25 11:26 Completed Ammonia Stat Lab 06/05/25 11:50 Completed CBC w/Auto Diff [Complete Blood Count Auto Diff] Stat Lab 06/05/25 11:17 Completed CMP [Comprehensive Metabolic Panel] Stat Lab 06/05/25 11:17 Completed CSF Cell Count w/ Dif Stat Lab 06/05/25 13:15 Ordered Ethanol [Ethyl Alcohol] Stat Lab 06/05/25 11:17 Completed Full Resp Panel w/COVID ([facility]) Routine Lab 06/05/25 11:37 Completed Glucose,CSF Stat Lab 06/05/25 13:15 Ordered HIV Combo Routine Lab 06/05/25 11:17 Received Hepatitis C Ab Qual. W/ RFX Routine Lab 06/05/25 11:17 Received Lactate Venous Stat Lab 06/05/25 11:40 Ordered Meningitis/Encephalitis panel Stat Lab 06/05/25 11:27 Ordered PT INR [Prothrombin Time INR] Stat Lab 06/05/25 11:17 Completed TSH [Thyroid Stimulating Hormone] Stat Lab 06/05/25 11:17 Completed Total Protein,CSF Stat Lab 06/05/25 13:15 Ordered Trop I [Troponin I] Stat Lab 06/05/25 11:17 Completed Troponin I Q3H Lab 06/05/25 14:30 Ordered Troponin I Q3H Lab 06/05/25 17:30 Ordered UA [Urinalysis and Microscopic] Stat Lab 06/05/25 11:37 Completed UDS [Drug Screen,Urine] Stat Lab 06/05/25 11:36 Received Blood Culture Stat Micro 06/05/25 11:50 Ordered CSF Culture & Gram Stain Stat Micro 06/05/25 13:15 Ordered Venous Blood Gas Stat RT 06/05/25 11:40 Completed Medical Decision Narrative: Patient with above history and physical with significant change in her mental status of unclear etiology. It is 5 days now since she has had her opiates or her Phenergan so medication-induced causes are less likely at this point. She had a workup including a noncontrasted CT scan and labs in the hospital that were unremarkable we will repeat some of the workup including metabolic dysfunction evaluation of possible urinary tract infection pneumonia etc. Will also get angiography of head neck to see if there is any obvious vascular disease. I am likely going to perform a lumbar puncture as meningitis encephalitis remain on the differential. Patient likely will also need an MRI if nothing else is proving to be diagnostic. Reassessments 1:[address] scans performed which I personally interpreted showed no definitive cause of patient's change in mental status. Labs otherwise unremarkable no infectious or metabolic abnormalities noted that would be definitively explanatory of her symptoms. She is maybe mental bit worse on reassessment clinically still awake eyes open she is really somnolent protecting her airway however and altered still not talking. Does move her extremities and withdraw to pain no following of of commands. I had a risk-benefit discussion with the son regarding lumbar puncture and we proceeded with that test 8 cc were taken out meningeal encephalitis PCR sent and this is a send out test. Basic CSF studies are pending but we will go ahead and prophylactically cover with vancomycin and Rocephin acyclovir and ampicillin. By no means is this definitively meningitis at this point but that remains in the differential and to be safe we have covered. She will likely need an MRI inpatient. This still could be polypharmacy no obvious tox explanation of her symptoms today. Patient will be admitted for further evaluation and management to hospital medicine. Procedures Lumbar Puncture Time Out Performed: Yes Patient Position: left lateral decubitus Skin Prep: Povidone-Iodine 1% Local Anesthetic: lidocaine 1% and with epi Amount of anesthesia used (mL): 5 Spinal Needle Gauge: 22G Interspace Used: L4-L5 Opening Pressure (cmH20): 28 Fluid Initially Obtained: clear Complications: none Critical Care Critical Care Time Critical Care Time: Yes Attestation: On 06/05/25, the high probability of a clinically significant, sudden or life threatening deterioration of the following system(s) required my full and direct attention, intervention and personal management. The time I documented below is in addition to time spent performing reported procedures but includes the following listed in this critical care notation. Total Time Total Critical Care Time: 35
[2025-06-05 11:41] LABS: Lactate Venous 2.3 mmol/L (0.4-2.0); VBG HCO3 23.2 mmol/L (23-30); VBG PCO2 43.9 mmol/L (35-51); VBG PH 7.34 mmol/L (7.31-7.41); VBG PO2 36.3 mmol/L (28-40)
[2025-06-05 11:45] LABS: Hematocrit 44.7 % (37.0-47.0); Hemoglobin 15.5 g/dL (12.2-16.2); Immature Granulocytes % 1.1 %; Mean Corpuscular HGB Conc 34.7 g/dL (31.8-35.4); Mean Corpuscular Hemoglobin 32.3 pg (27.0-31.2); Mean Corpuscular Volume 93.1 fl (81-99); Nucleated Red Blood Cells % 0 %; Platelet Count 313 K/mm3 (142-424); Red Blood Count 4.80 M/mm3 (4.20-5.40); Red Cell Distribution Width-SD 41.8 fL; White Blood Count 10.8 K/mm3 (4.8-10.8)
[2025-06-05 11:49] LABS: Adenovirus,PCR Not Detected (NotDetected); Chlamydophila Pneumoniae, PCR Not Detected (NotDetected); Coronavirus 19, PCR Not Detected (NotDetected); Coronovirus HKU1,PCR Not Detected (NotDetected); Influenza A, PCR Not Detected (NotDetected); Influenza AH1, 2009 Not Detected (NotDetected); Influenza AH1, PCR Not Detected (NotDetected); Influenza AH3,PCR Not Detected (NotDetected); Influenza B, PCR Not Detected (NotDetected); Microscopic, Urine URINE MICROSCOPIC (MICROSCOPIC); Mycoplasma Pneumoniae, PCR Not Detected (NotDetected); Parainfluenza 1, PCR Not Detected (NotDetected); Parainfluenza 2, PCR Not Detected (NotDetected); Parainfluenza 3, PCR Not Detected (NotDetected); Parainfluenza 4, PCR Not Detected (NotDetected)
[2025-06-05] MEDS: LACTATED RINGERS 1000ML 1,000 ML 999 ML IV (11:50)
[2025-06-05 11:52] LABS: INR 1.03 (0.9-1.1); Prothrombin Time 11.4 seconds (10.1-12.5)
[2025-06-05 11:54] LABS: Alanine Aminotransferase 64 U/L (12-78); Albumin Level 5.2 g/dl (3.5-5.0); Albumin/Globulin Ratio 1.4 (1.1-1.8); Alkaline Phosphatase 89 U/L (38-126); Anion Gap 15.0 mEq/L (5-15); Aspartate Amino Transferase 53 U/L (14-36); Bilirubin,Total 0.8 mg/dl (0.2-1.3); Blood Urea Nitrogen 31 mg/dl (7-17); Calcium 10.4 mg/dl (8.4-10.2); Carbon Dioxide 24 mmol/L (22.0-30.0); Chloride 100 mmol/L (98-107); Creatinine Clearance Estimated 47 mL/min (50-200); Creatinine,Serum 0.80 mg/dl (0.52-1.04); Estimated Glomerular Filt Rate 69 ml/min (>60); GFR (African American) 84 ML/MIN (>60); Globulin 3.7 g/dL (1.3-3.2); Glucose 141 mg/dl (74-100); Potassium 4.0 mmoL/L (3.5-5.1); Sodium 135 mmol/L (136-145); Total Protein,Serum 8.9 g/dl (6.3-8.2)
[2025-06-05 12:10] LABS: Ammonia < 9 umol/L (9-30)
[2025-06-05 12:12] LABS: Troponin I < 0.01 ng/ml (0.00-0.034)
[2025-06-05 12:13] LABS: Bilirubin,Urine 1+ (Negative); Color,Urine YELLOW (Yellow); Glucose,Urine (UA) Negative (Negative); Ketones,Urine 3+ (Negative); Leukocyte Esterase,Urine Negative (Negative); PH,Urine 6.0 (5.0-8.5); Protein,Urine 1+ (Negative); Specific Gravity, Urine >= 1.030 (1.005-1.030); Urobilinogen,Urine 0.2 EU/dl (0.2)
[2025-06-05] MEDS: IOPAMIDOL-370 (76%);100ML BOTTLE 80 ML IV (12:14)
[2025-06-05] MEDS: SODIUM CHLORIDE 0.9% 10ML SYR (RAD ONLY) 10 ML IV (12:14)
[2025-06-05] MEDS: 0.9 % SODIUM CHLORIDE 50 ML VIAL IV (12:14)
[2025-06-05 12:25] LABS: Thyroid Stimulating Hormone 25.70 uIU/mL (0.465-4.68)
--- NOTE | 2025-06-05 13:10 | PC.NURSE ---
consent signed by son at bedside due to AMS of pt LP performed. pt tolerated procedure well. specimens walked to lab
[2025-06-05 13:22] LABS: Amphetamine/Metha Screen,Urine Negative ng/ml (<1000); Barbiturates Screen,Urine Negative ng/ml (<200); Benzodiazepines Screen,Urine Negative ng/ml (<200); Methadone Screen,Urine Negative ng/ml (<300); Opiate Screen,Urine Negative ng/ml (<300); Phencyclidine Screen,Urine Negative ng/ml (<25)
--- NOTE | 2025-06-05 13:26 | PC.NURSE ---
call made to house for admission AMS, being treated for meningitis
--- NOTE | 2025-06-05 13:28 | [facility].PHAINT1 ---
Pharmacy Intervention Comments: MEDICATION RECONCILIATION COMPLETED ON PATIENT USING EXTERNAL FILL HISTORY FROM PHARMACY AND DISCHARGE SUMMARY FROM PREVIOUS ADMISSION. -DRE VASQUEZ, SHERD
[2025-06-05 13:39] LABS: Glucose,CSF 81 mg/dl (40-70)
--- NOTE | 2025-06-05 13:43 | PC.NURSE ---
report called to Deidre in ICU
[2025-06-05 13:44] LABS: Hepatitis C Ab Qual. W/ RFX NEGATIVE (Negative)
[2025-06-05 13:45] LABS: Tube Number: Tube 3; Volume,CSF 7 mL
[2025-06-05 13:46] LABS: Red Blood Cell,CSF < 2000 cells/uL (0); White Blood Cell,CSF 1 cells/uL (0-5)
[2025-06-05] MEDS: AMPICILLIN SODIUM 2 GM in 0.9 % SODIUM CHLORIDE 100 ML IV (14:34)
[2025-06-05 14:43] LABS: Mononuclear WBCs,CSF 0 %; Polynuclear WBCs,CSF 0 %
[2025-06-05] MEDS: ACYCLOVIR SODIUM 600 MG in 0.9 % SODIUM CHLORIDE 250 ML 250 MG IV (15:02)
[2025-06-05 15:07] LABS: Troponin I < 0.01 ng/ml (0.00-0.034)
[2025-06-05 15:41] LABS: Reflex Lactic Add Lactic Reflex
[2025-06-05 15:51] LABS: Lactic Acid Follow Up (RFLX 1) 1.3 mmol/L (0.7-2.1)
[2025-06-05 16:01] LABS: C-Reactive Protein 8.0 mg/L (0-4)
[2025-06-05 16:12] LABS: Procalcitonin 0.075 ng/mL (0.0-2.0)
[2025-06-05] MEDS: VANCOMYCIN/WATER FOR INJ (PEG) 1.25 GM/250 ML PIGGYBACK IV (17:08)
[2025-06-05] MEDS: ONDANSETRON 4MG/2ML VIAL 4 MG IV (17:36)
--- NOTE | 2025-06-05 19:02 | EXP.HP ---
History of Present Illness *Admission Date: 06/05/25 *Reason for visit:: Confusion, delirium *History of present illness: Malu Nolasco is a 79-year-old female with a medical history significant for PUD, type 2 diabetes, hypothyroidism, anxiety/depression who presents with family concerns of confusion, delirium at home. Patient was recently discharged from our facility after presenting with nausea/vomiting and some encephalopathy which resolved after restarting Protonix, fluid resuscitation. She was alert and oriented on day of discharge. Son states day after discharge, patient again became confused but more severe this time. She was apparently moving furniture all over the house, talking out of her head, was not eating, disheveled. Son does live with patient, but is not home 21/01. On my evaluation of patient, she was more alert and oriented x 2 (not to year). She continued to be confused in regards to history, but did state that she took a bunch of her medications . On day of discharge, patient was tearful when remembering her late and children who 3 years ago. However, family at bedside do not think that patient could have had suicidal ideation as she lives for her son and her family. Unfortunately, due to patient's encephalopathy, though improving, she is not able to provide a clear and thorough history. Workup in the ED significant for WBC 10.8 Normal VBG, calcium 10.4, TSH 25, UA noninfectious, normal UDS, full respiratory panel normal. Initially, ED had high suspicion for meningitis and performed an LP. However, CSF studies unremarkable other than slightly elevated glucose. She also received ceftriaxone, ampicillin, acyclovir, 1 L LR bolus. Given this presentation, ED provider discussed case with me and I decided to admit patient for further evaluation and management. [facility] Disclaimer: The information contained in this section may have been updated after the patient was seen, as this information can be updated by other users. Medical History (Updated 06/05/25 @ 19:16 by Marcellus Garcia MD) Hypothyroid GERD (gastroesophageal reflux disease) Diabetes Surgical History (Updated 06/04/25 @ 14:29 by Matt Pete) Hx of foot surgery History of delivery History of intestinal surgery History of appendectomy Social History (Updated 06/05/25 @ 17:00 by Deidre Smith RN) Smoking Status: Never smoker second hand exposure: No alcohol intake: never substance use type: denies use current occupational status: retired Travel in the last 8 weeks?: None household members: spouse housing: house current occupational exposures/hazards: No caffeine: Yes Have you lived/traveled outside [place] in past 30 days?: No Contact w/someone who lives/traveled outside US past 30 days?: No Exposure to someone with infectious disease in past 14 days?: No Do you have a fever (greater than 100.4 F or 38 C)?: No Have you tested positive for COVID-19?: No Exposed to someone with COVID-19 in past 14 days?: No Do you have a sore throat?: No Do you have a cough?: No Do you have any weakness?: No Do you have any diarrhea?: No Are you experiencing any unusual bleeding?: No Do you have any muscle aches/pain?: No Do you have any abdominal pain?: No Are you experiencing loss of taste or smell?: No Other Medical History Have you received the Flu Vaccine for this season: No Have you received the Pneumonia Vaccine: No Meds Home Medications and Allergies Home Medications ?Medication ?Instructions ?Recorded ?Confirmed ?Type cholecalciferol (vitamin D3) 10 50,000 unit PO WEEKLY Supplement 04/13/20 06/05/25 History mcg (400 unit) capsule temazepam 30 mg capsule 30 mg PO HS 06/04/21 06/05/25 History bupropion HCl 100 mg tablet 100 mg PO TID 12/09/22 06/05/25 History metformin 500 mg tablet 500 mg PO DAILY 12/09/22 06/05/25 History gabapentin 300 mg capsule 300 mg PO TID 06/02/25 06/05/25 History oxybutynin chloride 10 mg 10 mg PO DAILY 06/02/25 06/05/25 History tablet,extended release 24 hr promethazine 25 mg tablet 25 mg PO BIDP PRN Nausea/Vomiting 06/02/25 06/05/25 History levothyroxine 88 mcg tablet 88 mcg PO DAILY 30 days #30 tabs 06/03/25 06/05/25 Rx furosemide 20 mg tablet 20 mg PO DAILYP PRN leg edema 06/05/25 06/05/25 History omeprazole 40 mg capsule,delayed 40 mg PO BID 06/05/25 06/05/25 History release ondansetron 4 mg disintegrating 4 mg PO Q6HP PRN nausea and 06/05/25 06/05/25 History tablet vomiting New Prescriptions to Start Prescriptions: Allergies Allergy/AdvReac Type Severity Reaction Status Date / Time No Known Allergies Allergy Verified 06/04/25 14:30 Exam Data for Last 24 hours Vital signs and Labs for Last 24 Hours: Temp Pulse Resp BP Pulse Ox O2 Del Method 97.8 F 66 16 153/72 H 97 Room Air 06/05/25 16:00 06/05/25 16:00 06/05/25 16:00 06/05/25 16:00 06/05/25 16:00 06/05/25 18:56 Laboratory Results - last 24 hr 06/05/25 11:17: WBC 10.8, RBC 4.80, Hgb 15.5, Hct 44.7, MCV 93.1, MCH 32.3 H, MCHC 34.7, RDW 12.1, Plt Count 313, MPV 10.5 H, Neut % (Auto) 63.1, Lymph % (Auto) 28.5, Brooke % (Auto) 6.7, Eos % (Auto) 0.0 L, Baso % (Auto) 0.6, Neut # (Auto) 6.8, Lymph # (Auto) 3.1, Brooke # (Auto) 0.7, Eos # (Auto) 0.0, Baso # (Auto) 0.1, PT 11.4, INR 1.03, Sodium 135 L, Potassium 4.0, Chloride 100, Carbon Dioxide 24, Anion Gap 15.0, BUN 31 H D, Creatinine 0.80, Estimated Creat Clear 47, Estimated GFR 69, Est GFR ( Amer) 84, Glucose 141 H, Calcium 10.4 H, Total Bilirubin 0.8, AST 53 H, ALT 64, Alkaline Phosphatase 89, Troponin I < 0.01, Total Protein 8.9 H, Albumin 5.2 H, Globulin 3.7 H, Albumin/Globulin Ratio 1.4, TSH 25.70 H, Plasma/Serum Alcohol < 10, HCV Ab MARISELA w/Rflx PCR Qn Negative, HIV Ag/Ab Combo Qual Negative 06/05/25 11:36: Urine Opiates Screen Negative, Urine Methadone Screen Negative, Ur Barbituates Screen Negative, Ur Phencyclidine Scrn Negative, Ur Amphetamines Screen Negative, U Benzodiazepines Scrn Negative, Urine Cocaine Screen Negative, U Marijuana (THC) Screen Negative 06/05/25 11:37: Urine Color Yellow, Urine Appearance Clear, Urine pH 6.0, Ur Specific [place] >= 1.030, Urine Protein 1+ A, Urine Glucose (UA) Negative, Urine Ketones 3+, Urine Blood Negative, Urine Nitrate Negative, Urine Bilirubin 1+ A, Urine Urobilinogen 0.2, Ur Leukocyte Esterase Negative, Urine RBC None, Urine WBC None, Ur Squamous Epith Cells None, Urine Bacteria None, Chlamy pneumoniae PCR Not detected, Adenovirus (PCR) Not detected, B. pertussis DNA (PCR) Not detected, Coronavirus OC43 (PCR) Not detected, Coronavirus HKU1 (PCR) Not detected, Coronavirus 229E (PCR) Not detected, SARS-CoV-2 (PCR) Not detected, Coronavirus NL63 (PCR) Not detected, Human Metapneumovir PCR Not detected, Influenza A (H1) PCR Not detected, Influ A (H1N1/09) PCR Not detected, Influenza A (H3) PCR Not detected, Influenza Type A (PCR) Not detected, Influenza Type B (PCR) Not detected, M. pneumoniae (PCR) Not detected, Parainfluenza 1 (PCR) Not detected, Parainfluenza 2 (PCR) Not detected, Parainfluenza 3 (PCR) Not detected, Parainfluenza 4 (PCR) Not detected, RSV (PCR) Not detected, Entero/Rhino (PCR) Not detected 06/05/25 11:40: VBG pH 7.34, VBG pCO2 43.9, VBG pO2 36.3, VBG HCO3 23.2, VBG Total CO2 24.5, VBG O2 Saturation 68.4, VBG Base Excess -2.6 L, VBG Lactic Acid 2.3 H 06/05/25 11:50: Ammonia < 9 L 06/05/25 13:12: CSF Volume 7, CSF Appearance Clear, CSF WBC 1, CSF RBC < 2000, CSF Mononuclear WBCs % 0, CSF Polynuclear WBCs % 0, CSF Glucose 81 H, CSF Total Protein 52.0 06/05/25 14:20: Troponin I < 0.01, C-Reactive Protein 8.0 H, Procalcitonin 0.075 06/05/25 15:20: Lactate 1.3 I & O for Last 24 hours: Intake & Output 06/02/25 06/03/25 06/04/25 06/05/25 23:59 23:59 23:59 23:59 Intake Total 1690 / 1690 Output Total 0 / 0 Balance 1690 / 1690 Weight 63.9 kg Microbiology Reports for the Last 24 Hours: Microbiology 06/05/25 13:12 Cerebral Spinal Fluid Gram Stain - Final Constitutional Constitutional: no acute distress and chronically ill appearing Comments: Confusion, weakness. *Routine HEENT Exam Head: Present normocephalic Eye: Present EOMI and PERRL ENT: Present mucous membranes moist *Routine Neck Exam Neck: Present supple; Absent lymphadenopathy *Routine Respiratory Exam Respiratory: Present CTA bilaterally *Routine Cardiovascular Exam Cardiovascular: Present RRR *Routine Abdominal Exam Abdominal: Present soft and normoactive bowel sounds; Absent tenderness *Routine Rectal Exam Rectal:: deferred *Routine Genitalia Exam Genitalia:: deferred *Routine Extremities Exam Extremities: Absent cyanosis, clubbing or edema *Routine Skin Exam Skin: Present warm; Absent rash *Routine Neurological Exam Neurological: Present alert Assessment and Plan *Assessment and plan (1) Acute encephalopathy: Status: Acute Category: Medical Code(s): G93.40 - Encephalopathy, unspecified (2) Hypothyroid: Status: Acute Category: Medical Code(s): E03.9 - Hypothyroidism, unspecified Plan Malu Nolasco is a 79-year-old female with a medical history significant for PUD, type 2 diabetes, hypothyroidism, anxiety/depression who presents with family concerns of confusion, delirium at home. Patient was recently discharged from our facility after presenting with nausea/vomiting and some encephalopathy which resolved after restarting Protonix, fluid resuscitation. She was alert and oriented on day of discharge. Son states day after discharge, patient again became confused but more severe this time. She was apparently moving furniture all over the house, talking out of her head, was not eating, disheveled. Son does live with patient, but is not home 21/01. On my evaluation of patient, she was more alert and oriented x 2 (not to year). She continued to be confused in regards to history, but did state that she took a bunch of her medications . On day of discharge, patient was tearful when remembering her late and children who 3 years ago. However, family at bedside do not think that patient could have had suicidal ideation as she lives for her son and her family. Unfortunately, due to patient's encephalopathy, though improving, she is not able to provide a clear and thorough history. Son states that he has not given her medications at home due to confusion. Workup in the ED significant for WBC 10.8 Normal VBG, calcium 10.4, TSH 25, UA noninfectious, normal UDS, full respiratory panel normal. Initially, ED had high suspicion for meningitis and performed an LP. However, CSF studies unremarkable other than slightly elevated glucose. She also received vancomycin, ceftriaxone, ampicillin, acyclovir, 1 L LR bolus. Given this presentation, ED provider discussed case with me and I decided to admit patient for further evaluation and management. #Acute toxic metabolic encephalopathy #Hypothyroidism #Possible home medication overuse ? Patient presented with progressive encephalopathy, did state that she took a bunch of her medications at home though this was in a state of confusion. Family does not think that patient would have SI as she lives for her son and family. ? Broad workup thus far unremarkable other than hypothyroidism. TSH 25.7, free T41.09. Patient stated on previous admission that she had not been taking her levothyroxine, advised to do so. ? One of 2 bottles positive for Staph epidermidis with PCR on previous admission, but did not show growth. Vancomycin given in the ED, follow-up repeat blood cultures upon which we will consider starting antibiotics. ? Encephalopathy is improving upon arrival to the floor. Patient alert and oriented x 2, not to year. ? Started IV levothyroxine 100 mcg. ? LR at 100 mL/h. ? Follow-up morning CBC, CMP. #Type 2 diabetes ? Hemoglobin A1c 6.6%. LDSSI, ACHS glucose checks. #Anxiety/depression ? Hold home medications for now due to encephalopathy. Full code DVT prophylaxis: Lovenox 40 mg
[2025-06-05] MEDS: LACTATED RINGERS 1000ML 1,000 ML 100 ML IV (19:44)
[2025-06-05 20:00] LABS: Free T4 (Free Thyroxine) 1.10 ng/dl (0.78-2.19)
[2025-06-06] VITALS (7 sets, daily range): BP systolic 158–181; BP diastolic 76–97; PULSE 57–97; RESP 16–28; TEMP 36.4–37.1; O2SAT 95–99; BMI 23.8
[2025-06-06] MEDS: LACTATED RINGERS 1000ML 1,000 ML 100 ML IV (05:45)
[2025-06-06 07:24] LABS: Hematocrit 43.6 % (37.0-47.0); Hemoglobin 15.1 g/dL (12.2-16.2); Immature Granulocytes % 0.7 %; Mean Corpuscular HGB Conc 34.6 g/dL (31.8-35.4); Mean Corpuscular Hemoglobin 32.3 pg (27.0-31.2); Mean Corpuscular Volume 93.2 fl (81-99); Nucleated Red Blood Cells % 0 %; Platelet Count 145 K/mm3 (142-424); Red Blood Count 4.68 M/mm3 (4.20-5.40); Red Cell Distribution Width-SD 40.2 fL; White Blood Count 13.5 K/mm3 (4.8-10.8)
[2025-06-06 07:53] LABS: Alanine Aminotransferase 54 U/L (12-78); Albumin Level 4.1 g/dl (3.5-5.0); Albumin/Globulin Ratio 1.5 (1.1-1.8); Alkaline Phosphatase 60 U/L (38-126); Anion Gap 12.6 mEq/L (5-15); Aspartate Amino Transferase 50 U/L (14-36); Bilirubin,Total 0.8 mg/dl (0.2-1.3); Blood Urea Nitrogen 16 mg/dl (7-17); Calcium 9.5 mg/dl (8.4-10.2); Carbon Dioxide 19 mmol/L (22.0-30.0); Chloride 105 mmol/L (98-107); Creatinine Clearance Estimated 49 mL/min (50-200); Creatinine,Serum 0.60 mg/dl (0.52-1.04); Estimated Glomerular Filt Rate 97 ml/min (>60); GFR (African American) 117 ML/MIN (>60); Globulin 2.8 g/dL (1.3-3.2); Glucose 125 mg/dl (74-100); Magnesium 1.8 mg/dl (1.6-2.3); Potassium 4.6 mmoL/L (3.5-5.1); Sodium 132 mmol/L (136-145); Total Protein,Serum 6.9 g/dl (6.3-8.2)
[2025-06-06] MEDS: LEVOTHYROXINE SODIUM 100 MCG VIAL IV (09:05)
--- NOTE | 2025-06-06 09:10 | CT_ITS ---
PROCEDURE INFORMATION: Exam: CT Abdomen And Pelvis With Contrast Exam date and time: 06/06/2025 11:10 AM Age: 79 years old Clinical indication: Abdominal pain; Flank; Right; Additional info: R flank pain TECHNIQUE: Imaging protocol: Computed tomography of the abdomen and pelvis with contrast. Radiation optimization: All CT scans at this facility use at least one of these dose optimization techniques: automated exposure control; mA and/or kV adjustment per patient size (includes targeted exams where dose is matched to clinical indication); or iterative reconstruction. Contrast material: ISOVUE; Contrast volume: 75 ml; Contrast route: IV; COMPARISON: 1. CT ABDOMEN PELVIS W CON 06/01/2025 9:[address] ANGIO NECK 06/05/2025 12:05 PM FINDINGS: Lungs: Mild bibasilar atelectatic changes. Possibly dependent. Diaphragm: Elevated right hemidiaphragm. Liver: Severely fatty liver nonenlarged. Gallbladder and biliary ducts: Increased density in the gallbladder, new likely stones or sludge versus vicarious excretion from prior contrast given yesterday. Pancreas: Normal. No ductal dilation. Spleen: Normal. No splenomegaly. Adrenal glands: Normal. No mass. Kidneys and ureters: Normal. No hydronephrosis. Stomach and bowel: Small paraesophageal hernia, unchanged. Appendix: No evidence of appendicitis. Intraperitoneal space: Unremarkable. No free air. No significant fluid collection. Vasculature: Unremarkable. No abdominal aortic aneurysm. Lymph nodes: Unremarkable. No enlarged lymph nodes. Urinary bladder: Diffuse contrast urinary bladder presumably from a prior contrast study. Reproductive: Unremarkable as visualized. Bones/joints: Unremarkable. No acute fracture. Soft tissues: Unremarkable. IMPRESSION: 1. Very fatty liver. 2. Vicarious gallbladder and urinary excretion of contrast. 3. No acute abnormality.
--- NOTE | 2025-06-06 09:12 | ECG_ITS ---
APPROVED REPORT Exam: Resting ECG HR:76 bpm ECG Measurements Heart Rate 76 AXES IA 127 P 44 QRSd 90 QRS 31 QT 391 T 60 QTc 421 Conclusion SINUS RHYTHM NORMAL ECG UNCONFIRMED REPORT Electronically signed by : Ariel Mendez MD 06/07/2025 09:04:57
[2025-06-06 09:35] LABS: Vitamin B12 540 pg/mL (239-931)
--- NOTE | 2025-06-06 09:35 | HMH.ITSTN ---
icu to call when pt has IV
--- NOTE | 2025-06-06 10:01 | PC.NURSE ---
nursing was unsuccessful in obtaining IV access @ this time. contacted hotel housekeeper for ultrasound. spoke with radiology
--- NOTE | 2025-06-06 10:33 | PC.NURSE ---
pt responds to verbal stimuli but does not answer questions or answer anything appropriately only moans. Nursing has been providing total care. turn and reposition. incontinent or urine. pt is tense and rigid. i attempted to get her to take a sip of water but she would not.
[2025-06-06] MEDS: IOPAMIDOL-370 (76%);100ML BOTTLE 75 ML IV (11:11)
[2025-06-06] MEDS: SODIUM CHLORIDE 0.9% 10ML SYR (RAD ONLY) 10 ML IV (11:11)
[2025-06-06] MEDS: PANTOPRAZOLE 40MG VIAL 40 MG IV ×2 (11:26→20:14)
[2025-06-06 11:47] LABS: POC Glucose,Bedside 122 gm/dL (70-110)
[2025-06-06 12:09] LABS: C-Reactive Protein 6.7 mg/L (0-4)
--- NOTE | 2025-06-06 12:37 | PC.NURSE ---
i went over all of pts home medications. all medicines were sent home with her son who is currently @ bedside.
[2025-06-06] MEDS: PIPERCILLIN/TAZO 3.375 GM in 0.9 % SODIUM CHLORIDE 50 ML IV ×3 (12:52→23:39)
--- NOTE | 2025-06-06 13:07 | PC.NURSE ---
i spoke with MD about pts continued confusion and restlessness. He will be over to speak to family
--- NOTE | 2025-06-06 13:48 | P.PN_ITS ---
Subjective *Date: 06/06/25 *Time: 13:48 Interval history: Encephalopathy initially improved upon arrival to the floor on 06/05/2025, alert and oriented and interactive. However, this morning patient is encephalopathic with some posturing. Her eyes are closed, but if she is responding roger ropriately to most questions. She received Benadryl overnight, which we will discontinue. IV Haldol as needed for agitation. Patient is somnolent this morning, but responding to most questions appropriately. Exam Data for Last 24 hours Vital signs and Labs for Last 24 Hours: Temp Pulse Resp BP Pulse Ox O2 Del Method 98.8 F 90 27 H 181/86 H 95 Room Air 06/06/25 12:09 06/06/25 12:12 06/06/25 12:09 06/06/25 12:09 06/06/25 12:09 06/06/25 13:00 Laboratory Results - last 24 hr 06/05/25 11:17: HCV Ab MARISELA w/Rflx PCR Qn Negative, HIV Ag/Ab Combo Qual Negative 06/05/25 13:12: CSF Mononuclear WBCs % 0, CSF Polynuclear WBCs % 0 06/05/25 14:20: Troponin I < 0.01, C-Reactive Protein 8.0 H, Procalcitonin 0.075, Free T4 1.10 06/05/25 15:20: Lactate 1.3 06/06/25 06:57: WBC 13.5 H, RBC 4.68, Hgb 15.1, Hct 43.6, MCV 93.2, MCH 32.3 H, MCHC 34.6, RDW 11.8, Plt Count 145 D, MPV 11.7 H, Neut % (Auto) 72.1, Lymph % (Auto) 18.8, Saunders % (Auto) 7.8, Eos % (Auto) 0.1, Baso % (Auto) 0.5, Neut # (Auto) 9.7 H, Lymph # (Auto) 2.6, Saunders # (Auto) 1.1 H, Eos # (Auto) 0.0, Baso # (Auto) 0.1, Sodium 132 L, Potassium 4.6, Chloride 105, Carbon Dioxide 19 L, Anion Gap 12.6, BUN 16 D, Creatinine 0.60 D, Estimated Creat Clear 49, Estimated GFR 97, Est GFR ( Amer) 117 D, Glucose 125 H, Calcium 9.5, Magnesium 1.8, Total Bilirubin 0.8, AST 50 H, ALT 54, Alkaline Phosphatase 60, C-Reactive Protein 6.7 H, Total Protein 6.9, Albumin 4.1 D, Globulin 2.8, Albumin/Globulin Ratio 1.5, Vitamin B12 540 06/06/25 11:37: POC Glucose 122 H I & O for Last 24 hours: Intake & Output 06/03/25 06/04/25 06/05/25 06/06/25 23:59 23:59 23:59 23:59 Intake Total 1940 / 1940 1050 / 1050 Output Total 0 / 200 200 / 200 Balance 1940 / 1740 850 / 850 Weight 63.9 kg 67.1 kg Microbiology Reports for the Last 24 Hours: Microbiology 06/05/25 11:50 Blood Blood Culture - Preliminary NO GROWTH AFTER 24 HOURS 06/05/25 11:39 Blood Blood Culture - Preliminary NO GROWTH AFTER 24 HOURS 06/05/25 13:12 Cerebral Spinal Fluid Gram Stain - Final 06/05/25 13:12 Cerebral Spinal Fluid CSF Culture - Preliminary NO GROWTH AFTER 24 HOURS Constitutional Constitutional: mild distress and chronically ill appearing Comments: Somnolent, but responding to most questions appropriately though lethargic. *Routine HEENT Exam Head: Present normocephalic Eye: Present EOMI and PERRL ENT: Present mucous membranes moist *Routine Neck Exam Neck: Present supple; Absent lymphadenopathy *Routine Respiratory Exam Respiratory: Present CTA bilaterally *Routine Cardiovascular Exam Cardiovascular: Present RRR *Routine Abdominal Exam Abdominal: Present soft and normoactive bowel sounds; Absent tenderness *Routine Extremities Exam Extremities: Absent cyanosis, clubbing or edema *Routine Skin Exam Skin: Present warm; Absent rash *Routine Neurological Exam Neurological: Present alert Assessment and Plan *Assessment and plan (1) Acute encephalopathy: Status: Acute Category: Medical Code(s): G93.40 - Encephalopathy, unspecified (2) Hypothyroid: Status: Acute Category: Medical Code(s): E03.9 - Hypothyroidism, unspecified Plan Malu Nolasco is a 79-year-old female with a medical history significant for PUD, type 2 diabetes, hypothyroidism, anxiety/depression who presents with family concerns of confusion, delirium at home. Patient was recently discharged from our facility after presenting with nausea/vomiting and some encephalopathy which resolved after restarting Protonix, fluid resuscitation. She was alert and oriented on day of discharge. Son states day after discharge, patient again became confused but more severe this time. She was apparently moving furniture all over the house, talking out of her head, was not eating, disheveled. Son does live with patient, but is not home 21/01. On my evaluation of patient, she was more alert and oriented x 2 (not to year). She continued to be confused in regards to history, but did state that she took a bunch of her medications . On day of discharge, patient was tearful when remembering her late and children who 3 years ago. However, family at bedside do not think that patient could have had suicidal ideation as she lives for her son and her family. Unfortunately, due to patient's encephalopathy, though improving, she is not able to provide a clear and thorough history. Son states that he has not given her medications at home due to confusion. Workup in the ED significant for WBC 10.8 Normal VBG, calcium 10.4, TSH 25, UA noninfectious, normal UDS, full respiratory panel normal. Initially, ED had high suspicion for meningitis and performed an LP. However, CSF studies unremarkable other than slightly elevated glucose. She also received vancomycin, ceftriaxone, ampicillin, acyclovir, 1 L LR bolus. Given this presentation, ED provider discussed case with me and I decided to admit patient for further evaluation and management. #Acute toxic metabolic encephalopathy #Hypothyroidism #Possible home medication overuse ? Patient presented with progressive encephalopathy, did state that she took a bunch of her medications at home though this was in a state of confusion. Son states patient took tizanidine after she got home from previous discharge. Family does not think that patient would have SI as she lives for her son and family. ? Broad workup thus far unremarkable, including CSF studies, other than hypothyroidism. TSH 25.7, free T4 1.09. Patient stated on previous admission that she had not been taking her levothyroxine. ? One of 2 bottles positive for Staph epidermidis with PCR on previous admission, but did not show growth. Follow-up blood cultures NGTD. ? Encephalopathy initially improved upon arrival to the floor on 06/05/2025, alert and oriented and interactive. However, this morning patient is encephalopathic with some posturing. Her eyes are closed, but if she is responding appropriately to most questions. She received Benadryl overnight, which we will discontinue. IV Haldol as needed for agitation. ? Encephalopathy may be related to taking too much tizanidine at home. ? Started IV Zosyn 3.375 g every [address] abdomen/pelvis obtained due to right upper quadrant, flank pain. Showed increased gallbladder wall thickening, WBC up to 13.5 today. Follow-up RUQ scan in the morning. ? Continue IV levothyroxine 100 mcg. ? Continue LR at 100 mL/h. ? Follow-up HIV, hepatitis, RPR panel ? Follow-up brain MRI in the morning. ? Follow-up morning CBC, CMP. #Type 2 diabetes ? Hemoglobin A1c 6.6%. LDSSI, ACHS glucose checks. #Anxiety/depression ? Hold home medications for now due to encephalopathy. #GERD ? Hold home PPI due to encephalopathy for now. Full code DVT prophylaxis: Lovenox 40 mg
[2025-06-06] MEDS: LACTATED RINGERS 1000ML 1,000 ML 75 ML IV (14:08)
[2025-06-06] MEDS: ONDANSETRON 4MG/2ML VIAL 4 MG IV (14:27)
--- NOTE | 2025-06-06 17:02 | PC.NURSE ---
spoke with MD regarding pt increased agitation and moaning. new orders will be put in by
[2025-06-06] MEDS: LORazepam 2MG/ML VIAL 1 MG IV ×2 (17:05→23:39)
--- NOTE | 2025-06-06 17:18 | PC.NURSE ---
all of pts medications were sent home with her son
--- NOTE | 2025-06-06 18:21 | PC.NURSE ---
pt has become more alert @ this time. Family is @ bedside. i spoke with MD regarding it
[2025-06-06 19:57] LABS: POC Glucose,Bedside 111 gm/dL (70-110)
[2025-06-07] VITALS (11 sets, daily range): BP systolic 125–164; BP diastolic 66–85; PULSE 63–106; RESP 13–24; TEMP 36.3–37.3; O2SAT 93–98; BMI 23.9
[2025-06-07] MEDS: KETOROLAC 15MG/ML VIAL 15 MG IV (02:08)
[2025-06-07] MEDS: LACTATED RINGERS 1000ML 1,000 ML 75 ML IV (04:01)
--- NOTE | 2025-06-07 06:00 | US_ITS ---
PROCEDURE INFORMATION: Exam: US Abdomen, Limited; Right Upper Quadrant Exam date and time: 06/07/2025 8:03 AM Age: 79 years old Clinical indication: Abdominal pain; Additional info: Ruq pain TECHNIQUE: Imaging protocol: Real time ultrasound of the abdomen with image documentation. Limited exam focused on the right upper quadrant. COMPARISON: CT ABDOMEN PELVIS W CON 06/06/2025 11:10 AM FINDINGS: Liver: The liver is diffusely echogenic consistent with hepatic steatosis. Gallbladder: There is sludge identified in the gallbladder which is borderline distended. There is no significant wall thickening or pericholecystic fluid. Biliary ducts: Normal. No stones. No dilation. Pancreas: The pancreas is poorly visualized secondary to overlying bowel gas. Right kidney: Normal. No mass. No hydronephrosis. IMPRESSION: 1. Borderline distended gallbladder which contains sludge. There is no significant wall thickening or pericholecystic fluid. 2. Hepatic steatosis.
[2025-06-07] MEDS: PIPERCILLIN/TAZO 3.375 GM in 0.9 % SODIUM CHLORIDE 50 ML IV ×3 (06:10→17:26)
--- NOTE | 2025-06-07 07:00 | MR_ITS ---
PROCEDURE INFORMATION: Exam: MR Head Without Contrast Exam date and time: 06/07/2025 7:18 AM Age: 79 years old Clinical indication: Altered mental status/memory loss TECHNIQUE: Imaging protocol: Magnetic resonance imaging of the head without contrast. COMPARISON: CT ANGIO HEAD 06/05/2025 12:05 PM FINDINGS: Brain: Minimal scattered periventricular white matter hyperintensities are identified. There is no evidence of acute parenchymal hemorrhage, extra-axial collection, or acute infarction. There is no mass effect, midline shift, or downward herniation. Cerebral ventricles: Normal. No ventriculomegaly. Bones: Unremarkable. Paranasal sinuses: There is mild paranasal sinus mucosal thickening. Mastoid air cells: Normal as visualized. No mastoid effusion. Orbital cavities: Unremarkable. Soft tissues: Unremarkable. IMPRESSION: 1. No evidence of acute intracranial process. 2. Minimal white matter hyperintensities likely secondary to chronic microvascular ischemic change.
[2025-06-07 07:14] LABS: Hematocrit 43.1 % (37.0-47.0); Hemoglobin 14.1 g/dL (12.2-16.2); Immature Granulocytes % 0.6 %; Mean Corpuscular HGB Conc 32.7 g/dL (31.8-35.4); Mean Corpuscular Hemoglobin 31.9 pg (27.0-31.2); Mean Corpuscular Volume 97.5 fl (81-99); Nucleated Red Blood Cells % 0 %; Platelet Count 158 K/mm3 (142-424); Red Blood Count 4.42 M/mm3 (4.20-5.40); Red Cell Distribution Width-SD 43.1 fL; White Blood Count 14.3 K/mm3 (4.8-10.8)
--- NOTE | 2025-06-07 07:41 | PC.NURSE ---
0718 - Pt down to MRI w/ rad staff.
--- NOTE | 2025-06-07 08:25 | HMH.PHAAMS2 ---
- Antimicrobial Stewardship Review culture & sensitivity review Stewardship interventions: culture & sensitivity review (CURRENTLY ON ZOSYN, WBC 14.3K TODAY-DOWN FROM 22.7K ON 06/02. AFEBRILE. STAPH EPI IN PREVIOUS BLD CX. MOST RECENT BLD CX NEGATIVE.)
--- NOTE | 2025-06-07 09:35 | HMH.PTEV ---
Physical Therapy Evaluation Rehab PT IP Evaluation Start: 06/06/25 09:29 Freq: ONCE Status: Active Protocol: Document 06/07/25 09:24 ADIEL (Rec: 06/07/25 09:33 ADIEL [id number]) Subjective/History History History Per H&P: Malu Nolasco is a 79-year-old female with a medical history significant for PUD, type 2 diabetes , hypothyroidism, anxiety/depression who presents with family concerns of confusion, delirium at home. Patient was recently discharged from our facility after presenting with nausea/vomiting and some encephalopathy which resolved after restarting Protonix , fluid resuscitation. She was alert and oriented on day of discharge. Son states day after discharge, patient again became confused but more severe this time . She was apparently moving furniture all over the house, talking out of her head, was not eating, disheveled. Son does live with patient, but is not home 21/01. On my evaluation of patient, she was more alert and oriented x 2 (not to year). She continued to be confused in regards to history, but did state that she took a bunch of her medications . On day of discharge, patient was tearful when remembering her late and children who 3 years ago. However, family at bedside do not think that patient could have had suicidal ideation as she lives for her son and her family. Unfortunately, due to patient's encephalopathy, though improving, she is not able to provide a clear and thorough history. Workup in the ED significant for WBC 10.8 Normal VBG, calcium 10.4, TSH 25, UA noninfectious, normal UDS, full respiratory panel normal. Initially, ED had high suspicion for meningitis and performed an LP. However, CSF studies unremarkable other than slightly elevated glucose. She also received ceftriaxone, ampicillin, acyclovir, 1 L LR bolus. Given this presentation, ED provider discussed case with me and I decided to admit patient for further evaluation and management. Subjective Subjective PLOF: Pt IND with all mobility without use of AD (pt owns RW for intermittent use). Pt denies any falls in past [address]. HOME: Pt reports she lives alone in a home with 4 BE. ASSIST: Has family assistance if needed per pt report. [facility] How much help from another person do you currently need... Turning from your None back to your side while in a flat bed without using bedrails? Moving from lying on None back to sitting on the side of a flat bed without using bedrails? Moving to and from a None bed to a chair ( including a wheelchair)? Standing up from a None chair using your arms? (e.g., wheelchair, bedside chair) Walking in hospital None room? Climbing 3-5 steps A little with a railing? Mobility Score 23 Mobility Level [facility] Mobility 7 Walk 25 feet or more Mobility Calculator Rehab PT IP Eval Objective Appearance Patient Behavior Appropriate,Cooperative Patient Orientation Person Difficulty following mild instructions Speech Pattern Clear Ambulation Patient Able to Yes Ambulate Ambulation Observation IP General Gait No Deviations/Normal Pattern Observation Ambulation Distance 30 (feet) Ambulation Assistive Rolling Walker Device Ambulation Ability Supervision/Stand by Balance Ability to Arise Able, uses arms to help Sitting Balance Steady, safe Standing Balance Steady, wide stance Dynamic Sitting Good Balance Ability Dynamic Standing Good Balance Ability Transfers Bed Transfer Ability Supervision/Stand by Sit to Stand Bed Supervision/Stand by Transfer Ability Rehab PT IP prob,goals,plan Problems Date of Evaluation: 06/07/25 Rehab Potential Rehab Potential Innapropriate for Skilled Therapy Discharge Plan PT Discharge Plan Initial PT evaluation performed. Pt demo'd safe household level ambulation with and without RW. Pt demo'd some confusion when given commands for direction in room but was able to ambulate with Mod IND and good amb endurance. At this time, pt not appropriate for skilled acute level PT d/t IND mobility. Eval Complexity Eval Charge Codes 83882 - Moderate Complexity PHYSICIAN CERTIFICATION: I certify the specified therapy services for Malu Nolasco are required, authorized, and reviewed every 30 days.
[2025-06-07] MEDS: LEVOTHYROXINE SODIUM 100 MCG VIAL IV (09:49)
[2025-06-07] MEDS: PANTOPRAZOLE 40MG VIAL 40 MG IV ×2 (09:50→20:00)
[2025-06-07] MEDS: SODIUM CHLORIDE 0.9% 10ML VIAL 10 ML IV (09:50)
[2025-06-07] MEDS: ACETAMINOPHEN 325MG TAB 650 MG PO (09:55)
[2025-06-07 10:04] LABS: Alanine Aminotransferase 46 U/L (12-78); Albumin Level 3.8 g/dl (3.5-5.0); Albumin/Globulin Ratio 1.4 (1.1-1.8); Alkaline Phosphatase 57 U/L (38-126); Anion Gap 10.7 mEq/L (5-15); Aspartate Amino Transferase 48 U/L (14-36); Bilirubin,Total 0.9 mg/dl (0.2-1.3); Blood Urea Nitrogen 14 mg/dl (7-17); Calcium 9.3 mg/dl (8.4-10.2); Carbon Dioxide 19 mmol/L (22.0-30.0); Chloride 104 mmol/L (98-107); Creatinine Clearance Estimated 49 mL/min (50-200); Creatinine,Serum 0.70 mg/dl (0.52-1.04); Estimated Glomerular Filt Rate 81 ml/min (>60); GFR (African American) 98 ML/MIN (>60); Globulin 2.7 g/dL (1.3-3.2); Glucose 119 mg/dl (74-100); Magnesium 1.8 mg/dl (1.6-2.3); Potassium 3.7 mmoL/L (3.5-5.1); Sodium 130 mmol/L (136-145); Total Protein,Serum 6.5 g/dl (6.3-8.2)
--- NOTE | 2025-06-07 10:38 | HMH.OTEV ---
OT Evaluation Rehab OT IP Evaluation Start: 06/07/25 08:17 Freq: ONCE Status: Active Protocol: Document 06/07/25 10:35 [id number] (Rec: 06/07/25 10:38 [facility] [id number]) Rehab OT IP Assessment Subjective History Per H&P: Malu Nolasco is a 79-year-old female with a medical history significant for PUD, type 2 diabetes , hypothyroidism, anxiety/depression who presents with family concerns of confusion, delirium at home. Patient was recently discharged from our facility after presenting with nausea/vomiting and some encephalopathy which resolved after restarting Protonix , fluid resuscitation. She was alert and oriented on day of discharge. Son states day after discharge, patient again became confused but more severe this time . She was apparently moving furniture all over the house, talking out of her head, was not eating, disheveled. Son does live with patient, but is not home 21/01. On my evaluation of patient, she was more alert and oriented x 2 (not to year). She continued to be confused in regards to history, but did state that she took a bunch of her medications . On day of discharge, patient was tearful when remembering her late and children who 3 years ago. However, family at bedside do not think that patient could have had suicidal ideation as she lives for her son and her family. Unfortunately, due to patient's encephalopathy, though improving, she is not able to provide a clear and thorough history. Workup in the ED significant for WBC 10.8 Normal VBG, calcium 10.4, TSH 25, UA noninfectious, normal UDS, full respiratory panel normal. Initially, ED had high suspicion for meningitis and performed an LP. However, CSF studies unremarkable other than slightly elevated glucose. She also received ceftriaxone, ampicillin, acyclovir, 1 L LR bolus. Given this presentation, ED provider discussed case with me and I decided to admit patient for further evaluation and management. Subjective PLOF: Pt IND with all functional transfers without use of AD (pt owns RW for intermittent use). Pt denies any falls in past [address]. HOME: Pt reports she lives alone in a home with 4 BE. ASSIST: Has family assistance if needed per pt report. However, pt claims normally she is independent with all ADLS and IADLS. Objective Patient Orientation Person,Place,Birthday Right Upper WFL Extremity Gross ROM Left Upper Extremity WFL Gross ROM Bed Mobility bed mobility-scooting,bed mobility - supine/sit Assist Level Supervision/Stand by Transfer Training Sit/Stand Transfer Assist Level Contact Guard/Hand Hold Chair Transfer Contact Guard/Hand Hold Ability Chair Transfer Sit to/from Ambulatory Technique Chair Transfer Rolling Walker Assistive Devices Lower Body Dressing Standby Assistance Ability Rehab OT IP prob,goals,plan Problems Date of Evaluation: 06/07/25 Rehab Potential Rehab Potential Innapropriate for Skilled Therapy Discharge Plan OT Discharge Plan Pt appears to be at her baseline with functional transfers and ADL independence. Pt can return home once she is medically stable per physician. Therapist does recommend OT evaluation for possibly home environmental adaptations needed; pt agreeable with this plan. Eval Complexity Eval Charge Codes 26218 - Moderate Complexity PHYSICIAN CERTIFICATION: I certify the specified therapy services for Malu Nolasco are required, authorized, and reviewed every 30 days.
[2025-06-07 10:54] LABS: Folate 13.50 ng/mL
--- NOTE | 2025-06-07 14:14 | SW/DCPLANNER ---
Spoke with patient regarding outpatient therapy and she stated that she is interested in having outpatient therapy. Patient is not able to get home health due to home health agencies not being in network. I will let patient's nurse know that she is interested in doing outpatient therapy. Kaylee Mckenzie
--- NOTE | 2025-06-07 15:24 | P.PN_ITS ---
Subjective *Date: 06/07/25 *Time: 15:24 Interval history: Patient doing better today, alert and oriented. Conversational, however not at baseline yet. Continue treatment of levothyroxine, possible cholecystitis and reevaluate tomorrow. Exam Data for Last 24 hours Vital signs and Labs for Last 24 Hours: Temp Pulse Resp BP Pulse Ox O2 Del Method 98.8 F 106 H 19 125/66 97 Room Air 06/07/25 12:27 06/07/25 12:27 06/07/25 12:15 06/07/25 12:27 06/07/25 08:29 06/07/25 13:00 Laboratory Results - last 24 hr 06/06/25 19:48: POC Glucose 111 H 06/07/25 06:34: WBC 14.3 H, RBC 4.42, Hgb 14.1, Hct 43.1, MCV 97.5, MCH 31.9 H, MCHC 32.7, RDW 11.9, Plt Count 158, MPV 11.1 H, Neut % (Auto) 70.5, Lymph % (Auto) 19.7, [place] % (Auto) 8.3, Eos % (Auto) 0.1, Baso % (Auto) 0.8, Neut # (Auto) 10.1 H, Lymph # (Auto) 2.8, [place] # (Auto) 1.2 H, Eos # (Auto) 0.0, Baso # (Auto) 0.1, Sodium 130 L, Potassium 3.7, Chloride 104, Carbon Dioxide 19 L, Anion Gap 10.7, BUN 14, Creatinine 0.70, Estimated Creat Clear 49, Estimated GFR 81, Est GFR ( Amer) 98, Glucose 119 H, Calcium 9.3, Magnesium 1.8, Total Bilirubin 0.9, AST 48 H, ALT 46, Alkaline Phosphatase 57, Total Protein 6.5, Albumin 3.8, Globulin 2.7, Albumin/Globulin Ratio 1.4, Folate 13.50 I & O for Last 24 hours: Intake & Output 06/04/25 06/05/25 06/06/25 06/07/25 23:59 23:59 23:59 23:59 Intake Total 1940 / 1940 1938.333 / 9241.733 9293.5 / 1687.5 Output Total 0 / 200 950 / 950 0 / 0 Balance 1940 / 1740 988.333 / 025.828 8006.5 / 1687.5 Weight 63.9 kg 67.1 kg 67.56 kg Microbiology Reports for the Last 24 Hours: Microbiology 06/05/25 11:50 Blood Blood Culture - Preliminary NO GROWTH AFTER 48 HOURS 06/05/25 11:39 Blood Blood Culture - Preliminary NO GROWTH AFTER 48 HOURS Constitutional Constitutional: no acute distress *Routine HEENT Exam Head: Present normocephalic Eye: Present EOMI and PERRL ENT: Present mucous membranes moist *Routine Neck Exam Neck: Present supple; Absent lymphadenopathy *Routine Respiratory Exam Respiratory: Present CTA bilaterally *Routine Cardiovascular Exam Cardiovascular: Present RRR *Routine Abdominal Exam Abdominal: Present soft and normoactive bowel sounds; Absent tenderness *Routine Extremities Exam Extremities: Absent cyanosis, clubbing or edema *Routine Skin Exam Skin: Present warm; Absent rash *Routine Neurological Exam Neurological: Present alert and oriented X3 Assessment and Plan *Assessment and plan (1) Acute encephalopathy: Status: Acute Category: Medical Code(s): G93.40 - Encephalopathy, unspecified (2) Hypothyroid: Status: Acute Category: Medical Code(s): E03.9 - Hypothyroidism, unspecified Plan Malu Nolasco is a 79-year-old female with a medical history significant for PUD, type 2 diabetes, hypothyroidism, anxiety/depression who presents with family concerns of confusion, delirium at home. Patient was recently discharged from our facility after presenting with nausea/vomiting and some encephalopathy which resolved after restarting Protonix, fluid resuscitation. She was alert and oriented on day of discharge. Son states day after discharge, patient again became confused but more severe this time. She was apparently moving furniture all over the house, talking out of her head, was not eating, disheveled. Son does live with patient, but is not home 21/01. On my evaluation of patient, she was more alert and oriented x 2 (not to year). She continued to be confused in regards to history, but did state that she took a bunch of her medications . On day of discharge, patient was tearful when remembering her late and children who 3 years ago. However, family at bedside do not think that patient could have had suicidal ideation as she lives for her son and her family. Unfortunately, due to patient's encephalopathy, though improving, she is not able to provide a clear and thorough history. Son states that he has not given her medications at home due to confusion. Workup in the ED significant for WBC 10.8 Normal VBG, calcium 10.4, TSH 25, UA noninfectious, normal UDS, full respiratory panel normal. Initially, ED had high suspicion for meningitis and performed an LP. However, CSF studies unremarkable other than slightly elevated glucose. She also received vancomycin, ceftriaxone, ampicillin, acyclovir, 1 L LR bolus. Given this presentation, ED provider discussed case with me and I decided to admit patient for further evaluation and management. #Acute toxic metabolic encephalopathy #Hypothyroidism #Suspected benzodiazepine withdrawal ? Patient presented with progressive encephalopathy, did state that she took a bunch of her medications at home though this was in a state of confusion. Today, patient denies this. Family does not think that patient would have SI as she lives for her son and family. ? Broad workup thus far unremarkable, including CSF studies, other than hypothyroidism. TSH high 25.7, free T4 1.09. Patient stated on previous admission that she had not been taking her levothyroxine. ? One of 2 bottles positive for Staph epidermidis with PCR on previous admission, but did not show growth. Follow-up blood cultures NGTD. ? Encephalopathy initially improved upon arrival to the floor on 06/05/2025, alert and oriented and interactive. Yesterday patient was noted encephalopathic and agitation with some posturing. All symptoms significantly improved 1 hour after receiving IV Ativan indicating possible temazepam withdrawals. She had been taking her temazepam since last discharge a few days ago. ? Today, patient is alert and oriented. Doing better with conversations, not at baseline yet. Eating without issues. ? Brain MRI did not show acute findings. ? Will continue to monitor, restart home temazepam tonight and follow-up on response. Hold home gabapentin, bupropion for now. ? Continue IV levothyroxine 100 mcg. Did show chronic microvascular ischemic changes. Started aspirin 81 mg. ? Follow-up brain MRI in the morning. ? Follow-up morning CBC, CMP. #Mild acute cholecystitis ? Patient presented with nausea/vomiting on previous discharge, with leukocytosis. CT abdomen/pelvis suggestive of initial gallbladder wall thickening, with RUQ's showing borderline distended gallbladder with sludge without significant wall thickening or pericholecystic fluid. ? No RUQ tenderness today, did have some on admission. Tolerating diet without issues. ? Plan for outpatient cholecystectomy, consider inpatient general surgery consultation if patient has biliary colic. ? Continue IV Zosyn 3.375 g every 6 hours. WBC slightly up to 14.3 today. ? Plan to hold semaglutide on discharge as patient presented with nausea/vomiting on previous admission. #Type 2 diabetes ? Hemoglobin A1c 6.6%. LDSSI, ACHS glucose checks. #Anxiety/depression ? Patient was tearful on last admission, reminiscing about her late and children who from drug use. ? Reconsider starting on bupropion on discharge. #GERD ? Hold home PPI due to encephalopathy for now. Full code DVT prophylaxis: Lovenox 40 mg
[2025-06-07 16:59] LABS: POC Glucose,Bedside 198 gm/dL (70-110)
--- NOTE | 2025-06-07 17:27 | PC.NURSE ---
Pt confused at beginning of shift but mental status has become more clear and appropriate - A/Ox4 at this time. Pt has been up to chair majority of shift, tolerated well. No complaints voiced. Standby assist w/ use of walker when transferring/ ambulating in room. Tolerating PO intake w/o issue - has ate majority of her trays throughout shift. Family have been at bedside intermittently. Bed alarm in place for safety. Call car w/in reach.
[2025-06-07] MEDS: TEMAZEPAM 30MG CAPSULE 30 MG PO (20:00)
[2025-06-08] VITALS (34 sets, daily range): BP systolic 110–149; BP diastolic 68–91; PULSE 71–113; RESP 11–25; TEMP 36.8–37.4; O2SAT 92–97; BMI 24.0
[2025-06-08] MEDS: PIPERCILLIN/TAZO 3.375 GM in 0.9 % SODIUM CHLORIDE 50 ML IV ×3 (00:12→12:44)
[2025-06-08] MEDS: LEVOTHYROXINE SODIUM 100 MCG VIAL IV (06:16)
[2025-06-08 06:33] LABS: Hematocrit 36.7 % (37.0-47.0); Immature Granulocytes % 0.9 %; Mean Corpuscular HGB Conc 34.3 g/dL (31.8-35.4); Mean Corpuscular Hemoglobin 31.7 pg (27.0-31.2); Mean Corpuscular Volume 92.2 fl (81-99); Nucleated Red Blood Cells % 0 %; Platelet Count 258 K/mm3 (142-424); Red Blood Count 3.98 M/mm3 (4.20-5.40); Red Cell Distribution Width-SD 41.3 fL; White Blood Count 12.4 K/mm3 (4.8-10.8)
[2025-06-08 06:53] LABS: Albumin Level 3.3 g/dl (3.5-5.0); Chloride 107 mmol/L (98-107)
[2025-06-08 06:54] LABS: Sodium 142 mmol/L (136-145)
[2025-06-08 06:56] LABS: Alanine Aminotransferase 32 U/L (12-78); Alkaline Phosphatase 59 U/L (38-126); Aspartate Amino Transferase 41 U/L (14-36); Bilirubin,Total 0.3 mg/dl (0.2-1.3); Blood Urea Nitrogen 22 mg/dl (7-17); Creatinine Clearance Estimated 50 mL/min (50-200); Creatinine,Serum 0.80 mg/dl (0.52-1.04); Estimated Glomerular Filt Rate 69 ml/min (>60); GFR (African American) 84 ML/MIN (>60)
[2025-06-08 06:57] LABS: Albumin/Globulin Ratio 1.4 (1.1-1.8); Anion Gap 11.0 mEq/L (5-15); Calcium 8.7 mg/dl (8.4-10.2); Carbon Dioxide 27 mmol/L (22.0-30.0); Globulin 2.4 g/dL (1.3-3.2); Glucose 165 mg/dl (74-100); Magnesium 2.0 mg/dl (1.6-2.3); Total Protein,Serum 5.7 g/dl (6.3-8.2)
[2025-06-08 07:23] LABS: Potassium 3.0 mmoL/L (3.5-5.1)
[2025-06-08 07:50] LABS: Hemoglobin 12.6 g/dL (12.2-16.2)
--- NOTE | 2025-06-08 08:43 | HMH.PHAAMS2 ---
- Antimicrobial Stewardship Review culture & sensitivity review Stewardship interventions: culture & sensitivity review, reviewed - no change Comments: CURRENTLY ON ZOSYN FOR CHOLECYSTITIS, WBC 12.4K TODAY-DOWN FROM 22.7K ON 06/02. AFEBRILE. STAPH EPI IN PREVIOUS BLOOD CX BUT MOST RECENT CX NEGATIVE AT 48 HR, CSF CX NO GROWTH AT 24 HR.
[2025-06-08] MEDS: POTASSIUM CHLORIDE 20MEQ TAB 40 MEQ PO ×3 (08:58→16:48)
[2025-06-08] MEDS: SODIUM CHLORIDE 0.9% 10ML VIAL 10 ML IV (08:59)
[2025-06-08] MEDS: PANTOPRAZOLE 40MG VIAL 40 MG IV (08:59)
[2025-06-08] MEDS: ASPIRIN EC 81MG TABLET 81 MG PO (08:59)
--- NOTE | 2025-06-08 09:41 | EXP.DC.SUM ---
General Admission date:: 06/05/25 Discharge date: 06/08/25 HPI HPI HPI: Malu Nolasco is a 79-year-old female with a medical history significant for PUD, type 2 diabetes, hypothyroidism, anxiety/depression who presents with family concerns of confusion, delirium at home. Patient was recently discharged from our facility after presenting with nausea/vomiting and some encephalopathy which resolved after restarting Protonix, fluid resuscitation. She was alert and oriented on day of discharge. Son states day after discharge, patient again became confused but more severe this time. She was apparently moving furniture all over the house, talking out of her head, was not eating, disheveled. Son does live with patient, but is not home 21/01. On my evaluation of patient, she was more alert and oriented x 2 (not to year). She continued to be confused in regards to history, but did state that she took a bunch of her medications . On day of discharge, patient was tearful when remembering her late and children who 3 years ago. However, family at bedside do not think that patient could have had suicidal ideation as she lives for her son and her family. Unfortunately, due to patient's encephalopathy, though improving, she is not able to provide a clear and thorough history. Workup in the ED significant for WBC 10.8 Normal VBG, calcium 10.4, TSH 25, UA noninfectious, normal UDS, full respiratory panel normal. Initially, ED had high suspicion for meningitis and performed an LP. However, CSF studies unremarkable other than slightly elevated glucose. She also received ceftriaxone, ampicillin, acyclovir, 1 L LR bolus. Given this presentation, ED provider discussed case with me and I decided to admit patient for further evaluation and management. Hospital Course Hospital Course Hospital Course: Malu Nolasco is a 79-year-old female with a medical history significant for PUD, type 2 diabetes, hypothyroidism, anxiety/depression who presents with family concerns of confusion, delirium at home. Patient was recently discharged from our facility after presenting with nausea/vomiting and some encephalopathy which resolved after restarting Protonix, fluid resuscitation. She was alert and oriented on day of discharge. Son states day after discharge, patient again became confused but more severe this time. She was apparently moving furniture all over the house, talking out of her head, was not eating, disheveled. Son does live with patient, but is not home 21/01. On my evaluation of patient, she was more alert and oriented x 2 (not to year). She continued to be confused in regards to history, but did state that she took a bunch of her medications . On day of discharge, patient was tearful when remembering her late and children who 3 years ago. However, family at bedside do not think that patient could have had suicidal ideation as she lives for her son and her family. Unfortunately, due to patient's encephalopathy, though improving, she is not able to provide a clear and thorough history. Son states that he has not given her medications at home due to confusion. Workup in the ED significant for WBC 10.8 Normal VBG, calcium 10.4, TSH 25, UA noninfectious, normal UDS, full respiratory panel normal. Initially, ED had high suspicion for meningitis and performed an LP. However, CSF studies unremarkable other than slightly elevated glucose. She also received vancomycin, ceftriaxone, ampicillin, acyclovir, 1 L LR bolus. Given this presentation, ED provider discussed case with me and I decided to admit patient for further evaluation and management. Showed improvement in mentation. After resuming her benzodiazepines, she appeared back to baseline mentation. Evaluated by physical therapy. Will have patient follow-up as an outpatient with therapy. Found to have diarrhea, concern for possible C. difficile based on odor and consistency. Started on p.o. vancomycin empirically. Stable discharge home to complete treatment. Problems addressed as follows: #Acute toxic metabolic encephalopathy #Hypothyroidism #Suspected benzodiazepine withdrawal ? Patient presented with progressive encephalopathy, did state that she took a bunch of her medications at home though this was in a state of confusion. Family does not think that patient would have SI as she lives for her son and family. Broad workup thus far unremarkable, including CSF studies, other than hypothyroidism. TSH high 25.7, free T4 1.09. Patient stated on previous admission that she had not been taking her levothyroxine. One of 2 bottles positive for Staph epidermidis with PCR on previous admission, but did not show growth. Follow-up blood cultures NGTD. Encephalopathy initially improved upon arrival to the floor on 06/05/2025, alert and oriented and interactive. Noted to become more encephalopathic on 06 06 and had increased agitation. Symptoms improved rapidly after resuming benzodiazepines with treatment with Ativan. Concern for withdrawal from her temazepam. She has been taking this medication daily. Patient's orientation improved after resuming does not diazepam's. MRI was obtained that had no acute findings. Transition from IV to oral levothyroxine. Stable discharge home with close follow-up with PCP for further management. #Mild acute cholecystitis ? Patient presented with nausea/vomiting on previous discharge, with leukocytosis. CT abdomen/pelvis suggestive of initial gallbladder wall thickening, with RUQ's showing borderline distended gallbladder with sludge without significant wall thickening or pericholecystic fluid. No RUQ tenderness today, did have some on admission. Tolerating diet without issues. Plan for outpatient cholecystectomy consideration. Initially treated with antibiotics. Completed course by day of discharge. No further antibiotics for cholecystitis at discharge. Recommend holding GLP-1 at discharge #Type 2 diabetes ? Hemoglobin A1c 6.6%. Resume metformin at discharge #Anxiety/depression ? Patient was tearful on last admission, reminiscing about her late and children who from drug use. Resume Wellbutrin 100 mg 3 times a day and temazepam nightly Total time spent on discharge 32 minutes in counseling, documentation, chart review, and direct care with patient. Exam Data for Last 24 hours Vital signs and Labs for Last 24 Hours: Temp Pulse Resp BP Pulse Ox O2 Del Method 99.0 F 99 H 21 110/68 95 Room Air 06/08/25 08:00 06/08/25 08:30 06/08/25 08:30 06/08/25 08:00 06/08/25 08:30 06/08/25 08:00 Laboratory Results - last 24 hr 06/05/25 11:17: Hepatitis A IgM Ab Negative, Hep Bs Antigen Negative, Hep B Core IgM Ab Negative, Hepatitis C Antibody Non reactive, HCV RNA PCR Test Info Comment 06/07/25 06:34: Sodium 130 L, Potassium 3.7, Chloride 104, Carbon Dioxide 19 L, Anion Gap 10.7, BUN 14, Creatinine 0.70, Estimated Creat Clear 49, Estimated GFR 81, Est GFR ( Amer) 98, Glucose 119 H, Calcium 9.3, Magnesium 1.8, Total Bilirubin 0.9, AST 48 H, ALT 46, Alkaline Phosphatase 57, Total Protein 6.5, Albumin 3.8, Globulin 2.7, Albumin/Globulin Ratio 1.4, Folate 13.50 06/07/25 16:51: POC Glucose 198 H 06/08/25 05:20: WBC 12.4 H, RBC 3.98 L, Hgb 12.6 D, Hct 36.7 L, MCV 92.2, MCH 31.7 H, MCHC 34.3, RDW 12.1, Plt Count 258 D, MPV 10.7 H, Neut % (Auto) 63.9, Lymph % (Auto) 22.0, [place] % (Auto) 12.0 H, Eos % (Auto) 0.6, Baso % (Auto) 0.6, Neut # (Auto) 8.0 H, Lymph # (Auto) 2.7, [place] # (Auto) 1.5 H, Eos # (Auto) 0.1, Baso # (Auto) 0.1, Sodium 142, Potassium 3.0 L, Chloride 107, Carbon Dioxide 27, Anion Gap 11.0, BUN 22 H D, Creatinine 0.80, Estimated Creat Clear 50, Estimated GFR 69, Est GFR ( Amer) 84, Glucose 165 H D, Calcium 8.7, Magnesium 2.0 D, Total Bilirubin 0.3, AST 41 H, ALT 32 D, Alkaline Phosphatase 59, Total Protein 5.7 L, Albumin 3.3 L D, Globulin 2.4, Albumin/Globulin Ratio 1.4 I & O for Last 24 hours: Intake & Output 06/05/25 06/06/25 06/07/25 06/08/25 23:59 23:59 23:59 23:59 Intake Total 1939 / 194 1938.333 / 2205.828 7038.0 / 2160.0 100 / 100 Output Total 0 / 200 950 / 950 200 / 200 Balance 1939 / 1739 988.333 / 154.789 1675.0 / 1960.0 100 / 100 Weight 63.9 kg 67.1 kg 67.56 kg 67.9 kg Microbiology Reports for the Last 24 Hours: Microbiology 06/05/25 11:50 Blood Blood Culture - Preliminary NO GROWTH AFTER 48 HOURS 06/05/25 11:39 Blood Blood Culture - Preliminary NO GROWTH AFTER 48 HOURS Constitutional Constitutional: no acute distress, average body habitus, chronically ill appearing and cooperative *Routine HEENT Exam Head: Present normocephalic Eye: Present EOMI and PERRL ENT: Present mucous membranes moist *Routine Neck Exam Neck: Present supple; Absent lymphadenopathy *Routine Respiratory Exam Respiratory: Present CTA bilaterally; Absent rhonchi *Routine Cardiovascular Exam Cardiovascular: Present RRR *Routine Abdominal Exam Abdominal: Present soft and normoactive bowel sounds; Absent tenderness *Routine Rectal Exam Patient deferred: visual exam *Routine Exam Patient deferred: external exam *Routine Extremities Exam Extremities: Absent cyanosis, clubbing or edema *Routine Skin Exam Skin: Present warm; Absent rash *Routine Neurological Exam Neurological: Present alert and oriented X3 Results Data Completed and Pending Labs on day of discharge: Labs from last 24 hours 06/08/25 06/07/25 06/07/25 05:20 16:51 06:34 WBC 12.4 H RBC 3.98 L Hgb 12.6 D Hct 36.7 L MCV 92.2 MCH 31.7 H MCHC 34.3 RDW 12.1 Plt Count 258 D MPV 10.7 H Neut % (Auto) 63.9 Lymph % (Auto) 22.0 [place] % (Auto) 12.0 H Eos % (Auto) 0.6 Baso % (Auto) 0.6 Neut # (Auto) 8.0 H Lymph # (Auto) 2.7 [place] # (Auto) 1.5 H Eos # (Auto) 0.1 Baso # (Auto) 0.1 Sodium 142 130 L Potassium 3.0 L 3.7 Chloride 107 104 Carbon Dioxide 27 19 L Anion Gap 11.0 10.7 BUN 22 H D 14 Creatinine 0.80 0.70 Estimated Creat Clear 50 49 Estimated GFR 69 81 Est GFR ( Amer) 84 98 Glucose 165 H D 119 H POC Glucose 198 H Calcium 8.7 9.3 Magnesium 2.0 D 1.8 Total Bilirubin 0.3 0.9 AST 41 H 48 H ALT 32 D 46 Alkaline Phosphatase 59 57 Total Protein 5.7 L 6.5 Albumin 3.3 L D 3.8 Globulin 2.4 2.7 Albumin/Globulin Ratio 1.4 1.4 Folate 13.50 Hepatitis A IgM Ab Hep Bs Antigen Hep B Core IgM Ab Hepatitis C Antibody HCV RNA PCR Test Info 06/05/25 11:17 WBC RBC Hgb Hct MCV MCH MCHC RDW Plt Count MPV Neut % (Auto) Lymph % (Auto) [place] % (Auto) Eos % (Auto) Baso % (Auto) Neut # (Auto) Lymph # (Auto) [place] # (Auto) Eos # (Auto) Baso # (Auto) Sodium Potassium Chloride Carbon Dioxide Anion Gap BUN Creatinine Estimated Creat Clear Estimated GFR Est GFR ( Amer) Glucose POC Glucose Calcium Magnesium Total Bilirubin AST ALT Alkaline Phosphatase Total Protein Albumin Globulin Albumin/Globulin Ratio Folate Hepatitis A IgM Ab Negative Hep Bs Antigen Negative Hep B Core IgM Ab Negative Hepatitis C Antibody Non reactive HCV RNA PCR Test Info Comment Preliminary micro results at discharge 06/05/25 11:50 Blood Culture - Preliminary Blood NO GROWTH AFTER 48 HOURS 06/05/25 11:39 Blood Culture - Preliminary Blood NO GROWTH AFTER 48 HOURS 06/05/25 13:12 CSF Culture - Preliminary Cerebral Spinal Fluid NO GROWTH AFTER 24 HOURS DS: Diagnosis Discharge Diagnosis (1) Acute encephalopathy: Status: Acute Code(s): G93.40 - Encephalopathy, unspecified (2) Hypothyroid: Status: Acute Code(s): E03.9 - Hypothyroidism, unspecified (3) Diabetes: Status: Chronic Code(s): E11.9 - Type 2 diabetes mellitus without complications Meds Home Medications and Allergies Home Medications ?Medication ?Instructions ?Recorded ?Confirmed ?Type cholecalciferol (vitamin D3) 10 50,000 unit PO WEEKLY Supplement 04/13/20 06/05/25 History mcg (400 unit) capsule temazepam 30 mg capsule 30 mg PO HS 06/04/21 06/05/25 History bupropion HCl 100 mg tablet 100 mg PO TID 12/09/22 06/05/25 History metformin 500 mg tablet 500 mg PO DAILY 12/09/22 06/05/25 History oxybutynin chloride 10 mg 10 mg PO DAILY 06/02/25 06/05/25 History tablet,extended release 24 hr levothyroxine 88 mcg tablet 88 mcg PO DAILY 30 days #30 tabs 06/03/25 06/05/25 Rx furosemide 20 mg tablet 20 mg PO DAILYP leg edema 06/05/25 06/05/25 History omeprazole 40 mg capsule,delayed 40 mg PO BID 06/05/25 06/05/25 History release ondansetron 4 mg disintegrating 4 mg PO Q6HP PRN nausea and 06/05/25 06/05/25 History tablet vomiting meloxicam 15 mg tablet 15 mg PO DAILY 06/06/25 06/06/25 History potassium chloride 20 mEq 20 meq PO DAILY 06/06/25 06/06/25 History tablet,extended release aspirin 81 mg tablet,delayed 81 mg PO DAILY 30 days #30 tabs 06/08/25 Rx release tizanidine 4 mg tablet 4 mg PO Q8H PRN muscle cramps 30 06/08/25 06/06/25 Rx days #0 tabs vancomycin 50 mg/mL oral solution 125 mg (2.5 mL) PO QID 9 days #90 06/08/25 Rx (Firvanq) mL New Prescriptions to Start Prescriptions: Jose L Villatoro Allergies Allergy/AdvReac Type Severity Reaction Status Date / Time No Known Allergies Allergy Verified 06/04/25 14:30 Discharge Plan Disposition Patient Disposition: Home, Self-Care Condition: Fair Follow up Plan Follow up with: Kit Virgen MD [Primary Care Provider, Medical] - Enter time for follow up Prescriptions/Medication Reconciliation: New vancomycin [Firvanq] 50 mg/mL Recon Soln 125 mg PO QID 9 Days Qty: 90 0RF Rx Instructions: send home bottle aspirin 81 mg Tablet,Delayed Release (Dr/Ec) 81 mg PO DAILY 30 Days Qty: 30 0RF Continued cholecalciferol (vitamin D3) 10 MCG capsule 50,000 unit PO WEEKLY temazepam 30 MG capsule 30 mg PO HS oxybutynin chloride 10 mg tablet extended release 24hr 10 mg PO DAILY levothyroxine 88 mcg tablet 88 mcg PO DAILY 30 Days Qty: 30 0RF Rx Instructions: Take on empty stomach in the morning. omeprazole 40 MG capsule,delayed release(DR/EC) 40 mg PO BID Rx Instructions: Take on empty stomach. furosemide 20 mg tablet 20 mg PO DAILYP ondansetron 4 mg tablet,disintegrating 4 mg PO Q6HP PRN (Reason: nausea and vomiting) meloxicam 15 mg tablet 15 mg PO DAILY potassium chloride 20 mEq Tablet Extended Release 20 meq PO DAILY metformin 500 mg tablet 500 mg PO DAILY bupropion HCl 100 mg tablet 100 mg PO TID Changed tizanidine 4 mg Tablet 4 mg PO Q8H PRN (Reason: muscle cramps) 30 Days Qty: 0 0RF Discontinued promethazine 25 mg tablet 25 mg PO BIDP PRN (Reason: Nausea/Vomiting) gabapentin 300 mg capsule 300 mg PO TID Rybelsus 7 mg Tablet 7 mg PO DAILY Other Ambulatory Orders: Rehab Eval, OP (Routine) Timeframe: 2 Days Facility: [facility] - Location: Physical Therapy Ordered By: Jose L Katz Problem Reconciliation Problems Reviewed?: Yes Patient Discharge Instructions ACTIVITY: Continue current activity DIET: continue same diet Print Language: Danish Providers Primary Care Provider: Kit Virgen Admit Provider: Marcellus Garcia Attending Provider: Marcellus Garcia
[2025-06-08] MEDS: VANCOMYCIN HCL 50MG/ML 150ML KIT 125 MG PO ×3 (10:04→16:48)
--- NOTE | 2025-06-08 11:40 | SW/DCPLANNER ---
Addendum entered by Meeta Rodrigez 06/08/25 15:46: Patient son is at bedside to discuss discharge planning options. I discussed [facility] placement vs outpatient PT (no home health to accept patient's insurance in [employer] [place]). Son prefers that patient return home today w/ family assistance and return back to [facility] for outpatient therapy. I have updated patient's nurse (Marixa) regarding discharge plans. Original Note: I spoke w/ patient and son via phone regarding discharge planning. Patient is not interested in placement at this time nor is her family. Patient/family are agreeable to discharge home and return to [facility] outpatient PT services. I have updated MD. Patient's son stated that he can continuous pickling line pickler patient around 3PM today.
[2025-06-08 14:45] LABS: POC Glucose,Bedside 120 gm/dL (70-110)
[2025-06-08 15:29] LABS: RPR W/RFX Titers Nonreactive (Nonreactive)
[2025-06-09 09:18] LABS: N meningitidis (encapsulated) Not Detected (Not Detected)
--- NOTE | 2025-06-09 11:21 | SW/DCPLANNER ---
Spoke with patient's son on the phone. Patient's son stated that she is doing well. Patient's son stated that he is aware of his upcoming appointment. Patient's son stated that he was able to get her new medicine picked up. Patient sons stated that he has no concerns or questions at this time. Kaylee Mckenzie
== END 2025-06-08 17:00 | disposition home or self-care (01) ==
LOC: ER 13:23 → ICU 13:36
PROVIDERS: Admitting Provider Student in an Organized Health Care Education/Training Program; Emergency Provider Student in an Organized Health Care Education/Training Program; PCP Family Medicine; Visit Provider Student in an Organized Health Care Education/Training Program
DX: G93.40 Encephalopathy, unspecified (principal); E03.9 Hypothyroidism, unspecified; M62.838 Other muscle spasm; E11.9 Type 2 diabetes mellitus without complications; K21.9 Gastro-esophageal reflux disease without esophagitis; Z79.899 Other long term (current) drug therapy; Z79.890 Hormone replacement therapy; Z79.84 Long term (current) use of oral hypoglycemic drugs; Z79.82 Long term (current) use of aspirin; F41.9 Anxiety disorder, unspecified; F32.A Depression, unspecified; K82.8 Other specified diseases of gallbladder; K76.0 Fatty (change of) liver, not elsewhere classified; R06.00 Dyspnea, unspecified; R41.3 Other amnesia; R10.9 Unspecified abdominal pain
CPT/HCPCS: 0223U; 36415; 70450; 70496; 70498; 70551; 71045; 74177; 76705; 80053; 80074; 80307; 80320; 81001; 82140; 82607; 82746; 82803; 82945; 82962; 83605; 83735; 84145; 84155; 84439; 84443; 84484; 85025; 85610; 86140; 86592; 86803; 87040; 87070; 87205; 87389; 87483; 89051; 93005; 97162; 97166; 99285; G0378; J0133; J0290; J0650; J0696; J1650; J1885; J2004; J2060; J2405; J2470; J2543; J3375; J7050; J7120; Q9967